=== PATIENT | female | born 1930 | race Caucasian/White ===

== ENCOUNTER 2017-11-23 08:18 | Inpatient (IN) ==
[2017-11-23] MEDS ORDERED: Ondansetron 4 MG/2 ML VIAL IVP ONE (08:49)
[2017-11-23] MEDS ORDERED: 0.9 % Sodium Chloride 500 ML IVC ONE (08:49)
[2017-11-23 09:02] LABS: Hematocrit 36.7 % (35.3-44.9); Hemoglobin 12.2 g/dL (11.5-15.4); Immature Granulocytes % 0.3 % (0-4); Immature Platelets 2.3 % (1.1-6.1); Lymphocytes % 10.9 %; Mean Corpuscular HGB Conc 33.2 g/dL (31.6-35.5); Mean Corpuscular Hemoglobin 30.6 pg (28.0-33.3); Platelet Count 361 K/mcL (140-400); Red Blood Count 3.99 M/mcL (3.82-4.97); Segmented Neutrophils % 82.7 %
[2017-11-23 09:03] LABS: Basophils % 0.2 %; Eosinophils % 0.1 %; Lymphocytes # 1.2 K/mcL (0.6-4.6); Monocytes # 0.6 K/mcL (0.0-1.3); Monocytes % 5.8 %; Neutrophils # 9.1 K/mcL (1.6-8.9)
[2017-11-23 09:15] LABS: Albumin 4.5 g/dL (3.5-5.7); Albumin/Globulin Ratio 1.4 (1.1-2.2); Bilirubin,Total 0.8 mg/dL (0.3-1.0); Calcium 10.3 mg/dL (8.6-10.3); Globulin 3.2 g/dL (2.4-3.5); Potassium 4.5 mEq/L (3.5-5.1); Total Protein 7.7 g/dL (6.4-8.9)
--- NOTE | 2017-11-23 09:20 | Emergency Department Note ---
Disposition Clinical Impression: Generalized weakness UTI (urinary tract infection) Qualifiers: Urinary tract infection type: site unspecified Hematuria presence: with hematuria Qualified Code(s): N39.0 - Urinary tract infection, site not specified Disposition: Admitted As Inpatient Condition: Fair General Adult HPI - General Chief complaint: ED General Medical Stated complaint: Multiple complaints Time Seen by Provider: 11/23/17 08:30 Source: patient Mode of arrival: private vehicle Limitations: no limitations Nursing Notes Reviewed: Yes Vital Signs Reviewed: Yes - History of Present Illness HPI Narrative: 87-year-old female history of hypertension, hyperlipidemia, diabetes, status post CABG who presents to the ER with multiple complaints. Patient reports symptoms for the last roughly 2 weeks in duration. States that she has been seen by her primary care provider and completed a course of antibiotics for UTI. She also reports she has had aches in her back as well as hips and knees. States that at times she feels like she has hot places on her skin. Family states that she has had worsening weakness requiring more help at home with ambulation. They deny any fevers. No dysuria or hematuria. States she has had abdominal pain as well as nausea and vomiting for the last few days and has not wanted to eat. Also reports that she has been more short of breath with ambulation at home. Pt Subjective Complaint: Weakness, cough, abdominal pain, vomiting, generalized aches Onset (ago): week(s) Location: abdomen Radiation: non-radiation Pain Scale: 0 Consistency: intermittent Improves with: nothing Worsens with: nothing Associated symptoms: Reports: cough, headaches, nausea/vomiting, shortness of breath. Denies: chest pain, fever/chills Treatments Prior to Arrival: none - Related Data Home Medications Medication Instructions Recorded Confirmed Amitriptyline [Elavil] 10 mg PO HS 09/02/15 11/23/17 Amlodipine [Amlodipine Besylate] 10 mg PO DAILY 09/02/15 11/23/17 Metformin [Glucophage] 1,000 mg PO BID 09/02/15 11/23/17 Atorvastatin Calcium [Lipitor] 20 mg PO HS 04/28/16 11/23/17 Cholecalciferol (Vitamin D3) 1,000 unit PO DAILY 04/28/16 11/23/17 [Vitamin D3] FLUoxetine HCl [Prozac] 20 mg PO DAILY 04/28/16 11/23/17 Fluticasone Propionate Nasal 50 mcg NS BID 06/15/16 11/23/17 [Flonase] Nitroglycerin [Nitrostat] 0.4 mg SL AD PRN 06/15/16 11/23/17 Allopurinol [Zyloprim] 300 mg PO DAILY 11/23/17 11/23/17 Fluticasone/Vilanterol [Breo 1 puff IH DAILY 11/23/17 11/23/17 Ellipta 100-25 Mcg INH] Furosemide [Lasix] 20 mg PO DAILY 11/23/17 11/23/17 Omeprazole [PriLOSEC] 20 mg PO DAILY 11/23/17 11/23/17 Oxybutynin Chloride [Ditropan Xl] 10 mg PO DAILY 11/23/17 11/23/17 Previous Rx's Medication Instructions Recorded Docusate [Colace] 100 mg PO BID #60 capsule 04/30/16 Ferrous Sulfate 325 mg PO TIDWM #90 tablet 06/17/16 Folic Acid 5 mg PO DAILY #30 tablet 06/17/16 LORazepam [Ativan] 1 mg PO HS #30 tablet 06/17/16 Magnesium Oxide [Mag-Ox] 400 mg PO DAILY #14 tablet 06/17/16 Allergies Allergy/AdvReac Type Severity Reaction Status Date / Time No Known Allergies Allergy Verified 01/03/17 07:17 All systems ED: reviewed and negative except as stated. Constitutional: Reports: weakness. Denies: fever Cardiovascular: Denies: chest pain Respiratory: Reports: cough, dyspnea Gastrointestinal: Reports: abdominal pain, nausea, vomiting. Denies: diarrhea Genitourinary: Denies: dysuria, hematuria Past Medical History - Past Medical History Attestation: Yes The following information was validated with the patient. 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 - Social History Smoking Status: Former smoker Smokeless Tobacco Status: No Alcohol use: Reports: none Drug use: Reports: none Physical Exam - General Limitations: no limitations General appearance: alert, in no apparent distress - Head Head exam: atraumatic, normocephalic - Eye Eye exam: Present: normal appearance - ENT ENT exam: normal exam - Neck Neck exam: Present: normal inspection, full ROM - Chest Chest inspection: Present: normal inspection, symmetric chest wall rise - Respiratory Respiratory exam: Present: normal lung sounds bilaterally - Cardiovascular Cardiovascular exam: Present: regular rate, normal rhythm, normal heart sounds, systolic murmur - Abdominal Exam Abdominal exam: Present: soft, tenderness (Moderate right upper and left upper quadrant tenderness.). Absent: distention, guarding, rigidity - Extremities Exam Extremities exam: Present: normal inspection, full ROM - Expanded Upper Extremity Exam Shoulder exam: Present: normal inspection, full ROM Arm exam: Present: normal inspection, full ROM Elbow exam: Present: normal inspection, full ROM Forearm/Wrist exam: Present: normal inspection, full ROM Hand exam: Present: normal inspection, full ROM - Expanded Lower Extremity Exam Hip/Pelvis exam: Present: normal inspection, full ROM Upper leg exam: Present: normal inspection, full ROM Knee exam: Present: normal inspection, full ROM Lower leg exam: Present: normal inspection, full ROM Ankle exam: Present: normal inspection, full ROM Foot/toe exam: Present: normal inspection, full ROM Neurovascular/Tendon exam: Absent: motor deficit, sensory deficit - Neurological Exam Neurological exam: Present: alert, other (GCS 15, nonfocal, moves all extremity equally.). Absent: motor sensory deficit - Psychiatric Psychiatric exam: Present: normal affect - Skin Skin exam: Present: warm, dry, intact Course Course Narrative: Patient seen and examined. Vital signs reviewed. We will obtain an EKG as well as chest x-ray, labs including troponin, TSH, urinalysis and influenza swab. Patient given 500 mL bolus and Zofran here. Vital Signs Temperature 97.7 F 11/23/17 08:25 Pulse Rate 99 11/23/17 08:25 Respiratory Rate 18 11/23/17 08:25 Blood Pressure 152/87 11/23/17 08:25 O2 Sat by Pulse Oximetry 95 11/23/17 08:25 Temperature 97.9 F 11/24/17 04:54 Pulse Rate 84 11/24/17 04:54 Respiratory Rate 17 11/24/17 04:54 Blood Pressure 167/78 11/24/17 04:54 O2 Sat by Pulse Oximetry 93 11/24/17 04:54 Oxygen Delivery Oxygen Delivery Room Air Medical Decision Making - [facility] Narrative Medical decision making narrative: 87-year-old female presents to the ER due to multiple complaints. Her symptoms have been going off-and-on for the last 2 weeks. She reports she is having hot spots on her skin. Also states her hands turned purple today. She also complains of generalized weakness and difficulty with ambulation. She then went on to say that she had abdominal pain and has had nausea and vomiting for the last few days and has been drinking insurer at home. She is well-appearing here with stable vitals. EKG initially showed depression in anterior leads that was repeated which appear to be normal at that time. Chest x-ray without acute process. CT scan of the abdomen and pelvis shows no acute findings. Labs and urinalysis reviewed with the marginal UTI. Patient given Rocephin 4 UTI and admitted to the hospitalist service. - Lab Data Lab results reviewed: Yes I reviewed the patient's lab results. Result diagrams: 11/23/17 08:55 11/23/17 08:55 Lab Results 11/23/17 11/23/17 11/23/17 Range/Units 08:55 08:55 08:55 WBC 11.0 (4.3-11.1) K/mcL RBC 3.99 (3.82-4.97) M/mcL Hgb 12.2 (11.5-15.4) g/dL Hct 36.7 (35.3-44.9) % MCV 92.0 (83.0-100.0) fL MCH 30.6 (28.0-33.3) pg MCHC 33.2 (31.6-35.5) g/dL RDW 12.0 (11.5-14.5) % Plt Count 361 (140-400) K/mcL MPV 9.0 L (9.4-12.4) fL Immature Gran % 0.3 (0-4) % Seg Neutrophils % 82.7 % Lymphocytes % 10.9 % Monocytes % 5.8 % Eosinophils % 0.1 % Basophils % 0.2 % Neutrophils # 9.1 H (1.6-8.9) K/mcL Lymphocytes # 1.2 (0.6-4.6) K/mcL Monocytes # 0.6 (0.0-1.3) K/mcL Eosinophils # 0.0 (0.0-0.6) K/mcL Basophils # 0.0 (0.0-0.2) K/mcL Immature Plt Fraction 2.3 (1.1-6.1) % Sodium 132 L (136-145) mEq/L Potassium 4.5 (3.5-5.1) mEq/L Chloride 96 L (98-107) mEq/L Carbon Dioxide 25 (23-29) mEq/L BUN 30 H (8-23) mg/dL Creatinine 1.59 H (0.60-1.20) mg/dL Est GFR ( Amer) 37 L (> 60) Est GFR (Non-Af Amer) 31 L (> 60) BUN/Creatinine Ratio 19 (6-26) Glucose 210 H (70-105) mg/dL Est Mean Plasma Glucose mg/dl Hemoglobin A1c ( - 5.6) % Calculated Osmolality 286 (280-300) Calcium 10.3 (8.6-10.3) mg/dL Total Bilirubin 0.8 (0.3-1.0) mg/dL AST 10 L (13-39) Units/L ALT 9 (7-52) Units/L Alkaline Phosphatase 71 (34-104) Units/L Troponin I < 0.03 (< 0.04) ng/mL Serum Total Protein 7.7 (6.4-8.9) g/dL Albumin 4.5 (3.5-5.7) g/dL Globulin 3.2 (2.4-3.5) g/dL Albumin/Globulin Ratio 1.4 (1.1-2.2) Lipase 4 L (11-82) Units/L TSH 1.767 (0.340-5.600) mcIU/mL Urine Color (Yellow) Urine Clarity (Clear) Urine pH (5.0-8.0) pH Units Ur Specific [place] (1.010-1.025) Urine Protein (Neg-Trace) mg/dL Urine Glucose (UA) (Normal) mg/dL Urine Ketones (Negative) mg/dL Urine Blood (Negative) Urine Nitrite (Negative) Urine Bilirubin (Negative) Urine Urobilinogen (Normal) mg/dL Ur Leukocyte Esterase (Negative) Urine Microscopic RBC (0-3) per hpf Urine Microscopic WBC (0-3) per hpf Ur Squamous Epith Cells (None-Few) per lpf Urine Bacteria (None-Few) per hpf Hyaline Casts (None-Few) per lpf Ur Culture Indicated? (NO) 11/23/17 11/23/17 Range/Units 08:55 09:50 WBC (4.3-11.1) K/mcL RBC (3.82-4.97) M/mcL Hgb (11.5-15.4) g/dL Hct (35.3-44.9) % MCV (83.0-100.0) fL MCH (28.0-33.3) pg MCHC (31.6-35.5) g/dL RDW (11.5-14.5) % Plt Count (140-400) K/mcL MPV (9.4-12.4) fL Immature Gran % (0-4) % Seg Neutrophils % % Lymphocytes % % Monocytes % % Eosinophils % % Basophils % % Neutrophils # (1.6-8.9) K/mcL Lymphocytes # (0.6-4.6) K/mcL Monocytes # (0.0-1.3) K/mcL Eosinophils # (0.0-0.6) K/mcL Basophils # (0.0-0.2) K/mcL Immature Plt Fraction (1.1-6.1) % Sodium (136-145) mEq/L Potassium (3.5-5.1) mEq/L Chloride (98-107) mEq/L Carbon Dioxide (23-29) mEq/L BUN (8-23) mg/dL Creatinine (0.60-1.20) mg/dL Est GFR ( Amer) (> 60) Est GFR (Non-Af Amer) (> 60) BUN/Creatinine Ratio (6-26) Glucose (70-105) mg/dL Est Mean Plasma Glucose 148 mg/dl Hemoglobin A1c 6.8 H ( - 5.6) % Calculated Osmolality (280-300) Calcium (8.6-10.3) mg/dL Total Bilirubin (0.3-1.0) mg/dL AST (13-39) Units/L ALT (7-52) Units/L Alkaline Phosphatase (34-104) Units/L Troponin I (< 0.04) ng/mL Serum Total Protein (6.4-8.9) g/dL Albumin (3.5-5.7) g/dL Globulin (2.4-3.5) g/dL Albumin/Globulin Ratio (1.1-2.2) Lipase (11-82) Units/L TSH (0.340-5.600) mcIU/mL Urine Color Yellow (Yellow) Urine Clarity Cloudy A (Clear) Urine pH 7.0 (5.0-8.0) pH Units Ur Specific [place] 1.026 H (1.010-1.025) Urine Protein 100 H (Neg-Trace) mg/dL Urine Glucose (UA) Normal (Normal) mg/dL Urine Ketones Trace H (Negative) mg/dL Urine Blood Large H (Negative) Urine Nitrite Negative (Negative) Urine Bilirubin Negative (Negative) Urine Urobilinogen Normal (Normal) mg/dL Ur Leukocyte Esterase Moderate H (Negative) Urine Microscopic RBC TNTC H (0-3) per hpf Urine Microscopic WBC 50-100 H (0-3) per hpf Ur Squamous Epith Cells Many H (None-Few) per lpf Urine Bacteria Few (None-Few) per hpf Hyaline Casts None Seen (None-Few) per lpf Ur Culture Indicated? NO (NO) - Radiology Data Radiology results reviewed: Yes I reviewed the patient's radiology results. Chest X-Ray 11/23/17 08:48 IMPRESSION: No acute cardiopulmonary disease D/ / J Carlos Lopez MD / J Carlos Lopez MD Interpreting Provider: J Carlos Lopez MD Abdomen/Pelvis CT 11/23/17 08:49 IMPRESSION: 1. Somewhat hydropic appearance of the gallbladder with gallstones. Could consider right upper quadrant ultrasound for further evaluation, as indicated. 2. Diverticulosis CT evidence of diverticulitis. 3. Irregular thickening of the urinary bladder wall is nonspecific. Direct visualization with cystoscopy is recommended. 4. Other stable findings, as above. D/ / J Carlos Medellin / J Carlos Medellin Interpreting Provider: J Carlos Medellin - EKG Data EKG #1 EKG attestation: Yes I reviewed and interpreted this EKG. EKG results narrative: EKG demonstrates sinus rhythm with first-degree AV block with a rate of 91 bpm. Left axis deviation. Prolonged VT interval of 242. Other intervals normal. Normal R-wave progression. No gross ST elevations. There is [address] depression in leads V3 with nonspecific ST-T wave changes in lead V6. These are new from prior EKG dated 07/20/16. EKG demonstrates sinus rhythm with first-degree AV block with rate of 90 bpm. Left axis deviation. Normal intervals with the exception of VT interval of 222. Normal R-wave progression. No gross ST elevations or depressions. No acute ischemic findings. Attestation Statement - Attestation Attestation: I examined this patient and my medical decision-making was reviewed with the Resident Physician, Dr. Linda. I agree with the documented findings, disposition and treatment plan as described except to the extent set forth below. Pt is an 87 yo wf, with hx of HTN, hyperlipidemai and CAD, who presents to the ER with 2-wk hx of grad worsening gen weakness, and dyspnea on exertion. Pt brought by her daughter and grand daughter with concerns for her inability to ambulate with her cane as she typically does, due to worsening gen weakness and dec PO intake. Pt with c/o gen myalgias, gen weakness, and over past 2-3 days c/ o nausea and one isolated episode of nonbloody, nonbilious vomiting. Pt denies any f/C, no URI sxs/cough, no bowel changes. Pt denies any urinary sxs or flank pain. VSS on arrival and pt in NAD. I agree with PE findings as documented, VSS. Pt with initial EKG changes, NSR with ST depression in V3 which is new compared to prior EKG. Pt denies any CP/press, heaviness and no current SOB. EKG repeated , showing resolution of initial changes in V3. Labs show questionable UTI vs clean catch contamination. Will send for cx and cover pt with rocephin. Remaining labs wnl. CT abd/pelvis wnl, gallstones. Serial abd exams show no TTP, no peritoneal signs following IVF administration, and pt reports that she is feeling better after IVF. Initial trop wnl. Will admit for ongoing cardica eval, IV antibx and IVF for mild dehydration, as pt unable to care for herself at home due to dec appetite and gen weakness. D/W hospitalist who accepted pt for admission.
[2017-11-23 10:03] LABS: Bilirubin,Urine Negative (Negative); Blood,Urine Large (Negative); Clarity,Urine Cloudy (Clear); Color,Urine Yellow (Yellow); Glucose,Urine (UA) Normal (Normal); Ketones,Urine Trace mg/dL (Negative); Leukocyte Esterase,Urine Moderate (Negative); Nitrite,Urine Negative (Negative); Protein,Urine 100 mg/dL (Neg-Trace); Specific Gravity,Urine 1.026 (1.010-1.025); Urobilinogen,Urine Normal (Normal)
[2017-11-23 10:05] LABS: Hyaline Casts,Urine None Seen per lpf (None-Few); RBC,Urine TNTC per hpf (0-3); Squamous Epithelial Cell,Urine Many per lpf (None-Few); WBC,Urine 50-100 per hpf (0-3)
[2017-11-23 10:17] LABS: Bacteria,Urine Few per hpf (None-Few)
[2017-11-23 10:18] LABS: Thyroid Stimulating Hormone 1.767 mcIU/mL (0.340-5.600)
[2017-11-23] MEDS ORDERED: cefTRIAXone 1,000 MG in Water for inj. (sterile) 20 ML 10 ML IVP ONE (10:50)
--- NOTE | 2017-11-23 12:31 | Internal Med History&Physical ---
<Quentin Anne - Last Filed: 11/23/17 12:48> Date of Encounter: 11/23/17 Time of Encounter: 12:30 Assessment and Plan (1) Recurrent UTI Status: Acute -Received 1 course of treatment of antibiotics with unknown name. - UA positive for UTI at ED. - We will continue Rocephin and repeat UA in 3 days. (2) Dehydration Status: Acute -We will gently rehydrate with IV normal saline. - Encouraged patient for by mouth intake. (3) Numbness Status: Chronic - History of diabetes, will check A1c to rule out diabetic neuropathy. - We will also check vitamin B12, folate, calcium, magnesium and given the history vitamin deficiency. (4) Acute kidney injury Status: Acute - Baseline GFR above 60, current GFR less than 40. - Likely due to dehydration, were rehydrated and repeat RFP. - If no improvement, will do renal ultrasound and the urine electrolytes study. (5) Diabetes Status: Chronic - Hold metformin for inpatient, only insulin sliding scale. - Pending hemoglobin A1c. 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 (7) Vitamin D deficiency Status: Chronic - Vitamin D Supplement at Home. Vitamin D level pending. Internal Medicine - H&P: HPI Admitted From: Emergency Dept Plans for Post Hospital Care: Home History of present illness: Ms. Burch is a 87-year-old female history of hypertension, hyperlipidemia, diabetes, status post CABG who presents to the ER with multiple complaints. Patient reports symptoms for the last roughly 2 weeks in duration. States that she has been seen by her primary care provider and completed a course of antibiotics for UTI. She also reports she has had aches in her back as well as hips and knees. States that at times she feels like she has hot places on her skin. Family states that she has had worsening weakness requiring more help at home with ambulation. They deny any fevers. No dysuria or hematuria. States she has had abdominal pain as well as nausea and vomiting for the last few days and has not wanted to eat. Also reports that she has been more short of breath with ambulation at home. She also complains of numbness and tingling on the extremities. Family report that she had low magnesium in the past and received magnesium supplement. She she denies headache, seizure. At the ED, she was found to have UTI. Labs are remarkable for acute kidney injury and a urinary infection. She received 1 dose of Rocephin and will be admitted to the inpatient service. Past Med Surg Social Fam HX - Past Medical History Medical history: coronary artery disease, diabetes, GERD, hyperlipidemia, hypertension, osteoporosis, renal disease, TIA, valvular heart disease Psychiatric history: depression - Past Surgical History Surgical History: hysterectomy, orthopedic, other, other - Social History Smoking Status: Former smoker Smokeless Tobacco Status: No Alcohol use: none Drug use: none - Family History Mother Living Status: Hx Family GI Disorders: Yes Internal Medicine - H&P: Meds Amitriptyline [Elavil] 10 mg PO HS 09/02/15 [History] Amlodipine [Amlodipine Besylate] 10 mg PO DAILY 09/02/15 [History] Metformin [Glucophage] 1,000 mg PO BID 09/02/15 [History] Atorvastatin Calcium [Lipitor] 20 mg PO HS 04/28/16 [History] Cholecalciferol (Vitamin D3) [Vitamin D3] 1,000 unit PO DAILY 04/28/16 [History] FLUoxetine HCl [Prozac] 20 mg PO DAILY 04/28/16 [History] Docusate [Colace] 100 mg PO BID #60 capsule 04/30/16 [Rx] Fluticasone Propionate Nasal [Flonase] 50 mcg NS BID 06/15/16 [History] Nitroglycerin [Nitrostat] 0.4 mg SL AD PRN 06/15/16 [History] Ferrous Sulfate 325 mg PO TIDWM #90 tablet 06/17/16 [Rx] Folic Acid 5 mg PO DAILY #30 tablet 06/17/16 [Rx] LORazepam [Ativan] 1 mg PO HS #30 tablet 06/17/16 [Rx] Magnesium Oxide [Mag-Ox] 400 mg PO DAILY #14 tablet 06/17/16 [Rx] Allopurinol [Zyloprim] 300 mg PO DAILY 11/23/17 [History] Fluticasone/Vilanterol [Breo Ellipta 100-25 Mcg INH] 1 puff IH DAILY 11/23/17 [ History] Furosemide [Lasix] 20 mg PO DAILY 11/23/17 [History] Omeprazole [PriLOSEC] 20 mg PO DAILY 11/23/17 [History] Oxybutynin Chloride [Ditropan Xl] 10 mg PO DAILY 11/23/17 [History] Cephalexin [Keflex] 500 mg PO Q12H 7 Days #14 capsule 11/27/17 [Rx] Oxycodone HCl/Acetaminophen [Percocet 5-325 mg Tablet] 1 each PO Q8H #15 tablet 11/27/17 [Rx] 3 Allergy/AdvReac Type Severity Reaction Status Date / Time No Known Allergies Allergy Verified 01/03/17 07:17 All Systems PM: A 10-system review of systems was performed and is negative for pertinent findings except as documented above in the HPI. Review of systems: REVIEW OF SYSTEMS: CONSTITUTIONAL: No weight loss, fever, chills. HEENT: Eyes: No visual loss, blurred vision, double vision or yellow sclerae. Ears, Nose, Throat: No hearing loss, sneezing, congestion, runny nose or sore throat. SKIN: No rash or itching. CARDIOVASCULAR: No chest pain, chest pressure or chest discomfort. No palpitations or edema. RESPIRATORY: No cough or sputum. GASTROINTESTINAL: see HPI. GENITOURINARY: No dysuria, urgency, or frequency. NEUROLOGICAL: No headache, dizziness, syncope, paralysis, ataxia. No change in bowel or bladder control. MUSCULOSKELETAL: No muscle, back pain, joint pain or stiffness. HEMATOLOGIC: No anemia, bleeding or bruising. LYMPHATICS: No enlarged nodes. No history of splenectomy. PSYCHIATRIC: No history of depression or anxiety. ENDOCRINOLOGIC: No reports of sweating, cold or heat intolerance. No polyuria or polydipsia. - Constitutional Vitals: Temp Pulse Resp BP Pulse Ox 97.7 F 91 18 150/112 95 11/23/17 08:25 11/23/17 11:51 11/23/17 11:51 11/23/17 11:51 11/23/17 11:51 Exam: PHYSICAL EXAMINATION: GENERAL APPEARANCE: The patient is alert, oriented and in no acute distress. HEENT: Head is normocephalic. The sinuses are nontender. Pupils are equal and reactive. The nares are patent. Oropharynx clear without lesions. NECK: Supple without lymphadenopathy. HEART: Regular rate and rhythm. systolic murmur 3/5 noted at the right border of sternum. LUNGS: No crackles or wheezes are heard. ABDOMEN: Soft, nontender, nondistended with good bowel sounds heard. Inguinal area is normal. EXTREMITIES: Without cyanosis, clubbing or edema. NEUROLOGICAL: Gross nonfocal. SKIN: Warm and dry without any rash. Internal Med - H&P Results - Labs CBC & Chem 7: 11/23/17 08:55 11/23/17 08:55 Labs: Short CBC 11/23/17 Range/Units 08:55 WBC 11.0 (4.3-11.1) K/mcL Hgb 12.2 (11.5-15.4) g/dL Hct 36.7 (35.3-44.9) % Plt Count 361 (140-400) K/mcL Neutrophils # 9.1 H (1.6-8.9) K/mcL BMP 11/23/17 08:55 Sodium 132 L Potassium 4.5 Chloride 96 L Carbon Dioxide 25 BUN 30 H Creatinine 1.59 H Glucose 210 H Calcium 10.3 Cardiac Enzymes 11/23/17 Range/Units 08:55 Troponin I < 0.03 (< 0.04) ng/mL Liver Function 11/23/17 Range/Units 08:55 Total Bilirubin 0.8 (0.3-1.0) mg/dL AST 10 L (13-39) Units/L ALT 9 (7-52) Units/L Alkaline Phosphatase 71 (34-104) Units/L Albumin 4.5 (3.5-5.7) g/dL Urine 11/23/17 Range/Units 09:50 Urine Color Yellow (Yellow) Urine Clarity Cloudy A (Clear) Urine pH 7.0 (5.0-8.0) pH Units Ur Specific [place] 1.026 H (1.010-1.025) Urine Protein 100 H (Neg-Trace) mg/dL Urine Glucose (UA) Normal (Normal) mg/dL - Impressions ITS Impressions Chest X-Ray 11/23/17 08:48 IMPRESSION: No acute cardiopulmonary disease D/ / J Carlos Lopez MD / J Carlos Lopez MD Interpreting Provider: J Carlos Lopez MD Abdomen/Pelvis CT 11/23/17 08:49 IMPRESSION: 1. Somewhat hydropic appearance of the gallbladder with gallstones. Could consider right upper quadrant ultrasound for further evaluation, as indicated. 2. Diverticulosis CT evidence of diverticulitis. 3. Irregular thickening of the urinary bladder wall is nonspecific. Direct visualization with cystoscopy is recommended. 4. Other stable findings, as above. D/ / J Carlos Medellin / J Carlos Medellin Interpreting Provider: J Carlos Medellin <CarolineLeila Salina - Last Filed: 12/23/17 08:56> Date of Encounter: 12/23/17 Internal Medicine - H&P: HPI History of present illness: Ms. Burch is a 87 year old female All Systems PM: A 10-system review of systems was performed and is negative for pertinent findings except as documented above in the HPI. - Constitutional Vitals: Temp Pulse Resp BP Pulse Ox 98.7 F 90 15 152/76 95 11/26/17 23:38 11/26/17 23:38 11/26/17 23:38 11/26/17 23:38 11/26/17 23:38 Internal Med - H&P Results - Labs CBC & Chem 7: 11/26/17 04:24 11/26/17 04:24 - Attending Attestation I personally and independently interviewed and examined the patient with PARKING ENFORCEMENT TECHNICIAN, and I reviewed the patient's medical record with her. I am in agreement with the assessment and proposed treatment plan. I discussed my findings and recommendation with the patient and answer all questions. The patient's medical records were edited to accurately reflect this encounter.
[2017-11-23] MEDS ORDERED: Acetaminophen 325 MG TABLET PO PRN (12:35)
[2017-11-23] MEDS ORDERED: Ondansetron 4 MG/2 ML VIAL IVP PRN (12:35)
[2017-11-23] MEDS ORDERED: Naloxone 0.4 MG/ML INJ IVP PRN (12:35)
[2017-11-23] MEDS ORDERED: D5% in Water 1,000 ML IVC PRN (12:47)
[2017-11-23] MEDS ORDERED: *HR* Dextrose 50 % in Water (Syg) 50 ML SYRINGE IVP PRN (12:47)
[2017-11-23] MEDS ORDERED: Dextrose Gel 15 GM/37.5 ML TUBE PO PRN ×2 (12:47)
[2017-11-23] MEDS: Insulin LISPRO 300 UNITS/3 ML VIAL SQ SCH ×4 (13:48→20:55)
[2017-11-23] MEDS: 0.9 % Sodium Chloride 1,000 ML IVC SCH (14:00)
[2017-11-23 14:07] LABS: Hemoglobin A1C 6.8 %
[2017-11-23] MEDS: amLODIPine 5 MG TABLET PO SCH (14:18)
[2017-11-23] MEDS: Folic Acid 1 MG TABLET PO SCH (14:18)
[2017-11-23] MEDS: Fluticasone Propionate Nasal 50 MCG/SPRAY BOTTLE NS SCH ×2 (14:18→20:55)
[2017-11-23] MEDS: Cholecalciferol (D-3) 1,000 UNIT TABLET PO SCH (14:18)
[2017-11-23] MEDS: Magnesium Oxide 400 MG TABLET PO SCH (14:18)
[2017-11-23] MEDS: FLUoxetine 20 MG CAPSULE PO SCH (14:18)
[2017-11-23] MEDS ORDERED: traMADol 50 MG TABLET PO PRN (14:30)
[2017-11-23] MEDS: *HR* Heparin 5,000 UNIT/ML VIAL SQ SCH (17:44)
[2017-11-23] MEDS: *HR* OxyCODONE/APAP 5/325 TABLET PO PRN (18:41)
[2017-11-23] MEDS: *HR* LORazepam 1 MG TABLET PO SCH (20:40)
[2017-11-24] MEDS: *HR* Heparin 5,000 UNIT/ML VIAL SQ SCH ×2 (05:35→17:36)
[2017-11-24 06:07] LABS: Hematocrit 33.8 % (35.3-44.9); Hemoglobin 11.1 g/dL (11.5-15.4); Mean Corpuscular HGB Conc 32.8 g/dL (31.6-35.5); Mean Corpuscular Hemoglobin 30.7 pg (28.0-33.3); Mean Corpuscular Volume 93.6 fL (83.0-100.0); Mean Platelet Volume 9.7 fL (9.4-12.4); Platelet Count 298 K/mcL (140-400); Red Blood Count 3.61 M/mcL (3.82-4.97); Red Cell Distribution Width 12.2 % (11.5-14.5)
[2017-11-24] MEDS: 0.9 % Sodium Chloride 1,000 ML IVC SCH (06:12)
[2017-11-24 06:27] LABS: Calcium 9.4 mg/dL (8.6-10.3); Magnesium 2.2 mg/dL (1.6-2.6); Potassium 4.1 mEq/L (3.5-5.1)
[2017-11-24] MEDS: Magnesium Oxide 400 MG TABLET PO SCH (08:06)
[2017-11-24] MEDS: Cholecalciferol (D-3) 1,000 UNIT TABLET PO SCH (08:07)
[2017-11-24] MEDS: amLODIPine 5 MG TABLET PO SCH (08:07)
[2017-11-24] MEDS: Folic Acid 1 MG TABLET PO SCH (08:07)
[2017-11-24] MEDS: FLUoxetine 20 MG CAPSULE PO SCH (08:07)
[2017-11-24] MEDS: Insulin LISPRO 300 UNITS/3 ML VIAL SQ SCH ×4 (08:10→22:02)
[2017-11-24] MEDS: Fluticasone Propionate Nasal 50 MCG/SPRAY BOTTLE NS SCH ×2 (08:10→21:34)
--- NOTE | 2017-11-24 09:56 | Internal Med Progress Note ---
Date of Encounter: 11/24/17 Time of Encounter: 09:54 - Assessment and plan (1) UTI (urinary tract infection) Current Visit: No Status: Acute Qualifiers: Urinary tract infection type: site unspecified Hematuria presence: with hematuria Qualified Code(s): N39.0 - Urinary tract infection, site not specified; R31.9 - Hematuria, unspecified (2) Renal failure (ARF), acute on chronic Current Visit: No Status: Acute Qualifiers: Acute renal failure type: unspecified Chronic kidney disease stage: stage 3 (moderate) Qualified Code(s): N17.9 - Acute kidney failure, unspecified; N18.3 - Chronic kidney disease, stage 3 (moderate); N18.3 - Chronic kidney disease, stage 3 (moderate) (3) Recurrent UTI Current Visit: No Status: Acute (4) Diabetes Current Visit: No Status: Chronic Qualifiers: Diabetes mellitus type: type 2 Diabetes mellitus complication status: without complication Diabetes mellitus meterman insulin use: without meterman use Qualified Code(s): E11.9 - Type 2 diabetes mellitus without complications (5) HTN (hypertension) Current Visit: No Status: Chronic Assessment and plan: PT REPORTS SOME IMPROVEMENT, CONTINUE IV ROCEPHIN I DID NOT SEE PENDIND URINE CULTURES, WILL ORDER ONE MONITOR INS AND OUTS, RENAL FUNCTION IMPROVING, CONTINUE GENTLE IV HYDRATION CONT ACCUCHECK WITH ISS MONITOR VITALS. Qualifiers: Hypertension type: essential hypertension Qualified Code(s): I10 - Essential (primary) hypertension - Time Spent With Patient 25 - 35 minutes - Subjective Interval history: SAYS MAKING URINE, NO FEVER OR CHILLS BUT STILL WEAK. - Constitutional Vitals: Temp Pulse Resp BP Pulse Ox 97.9 F 80 20 108/64 93 11/24/17 07:58 11/24/17 07:58 11/24/17 07:58 11/24/17 09:13 11/24/17 07:58 General appearance: Present: A&O X 3 - Head Head exam: Present: atraumatic, normocephalic - Eye Eye exam: Present: PERRL, conjuntiva pink, sclera anicteric Pupils: Present: PERRL - Neck Neck exam general surgery: Present: supple, trachea midline. Absent: lymphadenopathy - Respiratory Respiratory exam: Present: CTAB. Absent: accessory muscle use, rales, rhonchi, wheezes - Cardiovascular Cardiovascular exam: Present: RRR, +S1, +S2. Absent: diastolic murmur, gallop, rubs, systolic murmur - GI/Abdominal GI/Abdominal exam: Present: normal bowel sounds, soft, no peritoneal signs. Absent: distended, tenderness - Extremities Exam Extremities exam: Present: warm, radial pulses palpable and symmetrical. Absent : calf tenderness, cyanotic, pedal edema - Neurological Exam Neurological exam: Present: CN II-XII intact, oriented X3, no focal deficits. Absent: pronater drift, facial droop, speech deficit - Skin Skin exam: Present: dry, intact Internal Medicine: Result - Labs CBC & Chem 7: 11/24/17 05:04 11/24/17 05:04 Labs: Short CBC 11/24/17 Range/Units 05:04 WBC 7.8 (4.3-11.1) K/mcL Hgb 11.1 L (11.5-15.4) g/dL Hct 33.8 L (35.3-44.9) % Plt Count 298 (140-400) K/mcL [facility] 11/24/17 05:04 Sodium 133 L Potassium 4.1 Chloride 102 Carbon Dioxide 22 L BUN 33 H Creatinine 1.38 H Glucose 180 H Calcium 9.4 Consult Discharge Plan - Plan Referrals: Sapna Ruiz MD [Primary Care Provider] -
[2017-11-24] MEDS: (Fluticasone/Vilanterol [Breo Ellipta 100-25 Mcg Inh]) IH SCH (12:03)
[2017-11-24] MEDS: cefTRIAXone 1,000 MG in Water for inj. (sterile) 20 ML 10 ML IVP SCH (12:05)
[2017-11-24] MEDS: *HR* OxyCODONE/APAP 5/325 TABLET PO PRN ×2 (14:01→20:22)
--- NOTE | 2017-11-24 19:43 | Electrocardiograph Report ---
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
--- NOTE | 2017-11-24 19:46 | Electrocardiograph Report ---
[address] [address] Test Date: 2017-11-23 Pat Name: Neisha Burch Department: 104 Room: 3A42 Gender: F Parent Partner: : 1930 Requested By: Bigg Linda Order Number: [id number] Reading MD: Jase Liriano MD Measurements Intervals [place] Rate: 90 P: -1 [place]: 222 QRS: -30 QRSD: 75 T: 40 QT: 366 QTc: 414 Interpretive Statements SINUS RHYTHM WITH FIRST DEGREE AV BLOCK BORDERLINE LEFT AXIS DEVIATION MODERATE VOLTAGE CRITERIA FOR LVH BASELINE ARTIFACT Electronically Signed On 11-24-2017 19:45:20 EST by Jase Liriano MD
[2017-11-24] MEDS: *HR* LORazepam 1 MG TABLET PO SCH (20:20)
[2017-11-25] MEDS: *HR* Heparin 5,000 UNIT/ML VIAL SQ SCH ×2 (04:57→18:58)
[2017-11-25] MEDS: *HR* OxyCODONE/APAP 5/325 TABLET PO PRN ×3 (05:16→18:57)
[2017-11-25] MEDS: Insulin LISPRO 300 UNITS/3 ML VIAL SQ SCH ×4 (07:39→22:55)
[2017-11-25] MEDS: amLODIPine 5 MG TABLET PO SCH (09:32)
[2017-11-25] MEDS: Folic Acid 1 MG TABLET PO SCH (09:32)
[2017-11-25] MEDS: FLUoxetine 20 MG CAPSULE PO SCH (09:32)
[2017-11-25] MEDS: Magnesium Oxide 400 MG TABLET PO SCH (09:33)
[2017-11-25] MEDS: Cholecalciferol (D-3) 1,000 UNIT TABLET PO SCH (09:33)
[2017-11-25] MEDS: (Fluticasone/Vilanterol [Breo Ellipta 100-25 Mcg Inh]) IH SCH (09:42)
[2017-11-25] MEDS: Fluticasone Propionate Nasal 50 MCG/SPRAY BOTTLE NS SCH ×2 (09:43→20:42)
[2017-11-25] MEDS: cefTRIAXone 1,000 MG in Water for inj. (sterile) 20 ML 10 ML IVP SCH (11:52)
[2017-11-25 14:20] LABS: Potassium 4.4 mEq/L (3.5-5.1)
--- NOTE | 2017-11-25 18:40 | Internal Med Progress Note ---
Date of Encounter: 11/25/17 Time of Encounter: 13:00 - Assessment and plan (1) UTI (urinary tract infection) Current Visit: No Status: Acute Qualifiers: Urinary tract infection type: site unspecified Hematuria presence: with hematuria Qualified Code(s): N39.0 - Urinary tract infection, site not specified; R31.9 - Hematuria, unspecified (2) Renal failure (ARF), acute on chronic Current Visit: No Status: Acute Qualifiers: Acute renal failure type: unspecified Chronic kidney disease stage: stage 3 (moderate) Qualified Code(s): N17.9 - Acute kidney failure, unspecified; N18.3 - Chronic kidney disease, stage 3 (moderate); N18.3 - Chronic kidney disease, stage 3 (moderate) (3) Recurrent UTI Current Visit: No Status: Acute (4) Diabetes Current Visit: No Status: Chronic Qualifiers: Diabetes mellitus type: type 2 Diabetes mellitus complication status: without complication Diabetes mellitus terminal block assembler insulin use: without terminal block assembler use Qualified Code(s): E11.9 - Type 2 diabetes mellitus without complications (5) HTN (hypertension) Current Visit: No Status: Chronic Assessment and plan: PT. REPORTS SOME IMPROVEMENT BUT STILL WEAK AND FEELS CONSTIPATED. URINE CULTURES WERE PENDING WHEN I ROUNDED ON PATIENT. I RECHECKED LATE THIS AFTERNOON WHILE WRITING NOTES AND IT IS RESULTED AND READS NEGATIVE. WILL CONTINUE IV ROCEPHIN AND ANTICIPATE DC ON ORAL ABX IN THE AM. I WILL ORDER LAXATIVES FOR CONSTIPATION. MONITOR INS AND OUTS, RENAL FUNCTION IMPROVING, CONTINUE GENTLE IV HYDRATION CONT ACCUCHECK WITH ISS MONITOR VITALS. Qualifiers: Hypertension type: essential hypertension Qualified Code(s): I10 - Essential (primary) hypertension - Subjective Interval history: SAYS MAKING URINE, NO FEVER OR CHILLS BUT STILL WEAK. - Constitutional Vitals: Temp Pulse Resp BP Pulse Ox 97.5 F L 75 18 126/69 93 11/25/17 15:33 11/25/17 15:33 11/25/17 15:33 11/25/17 15:33 11/25/17 15:33 General appearance: Present: A&O X 3 - Head Head exam: Present: atraumatic, normocephalic - Eye Eye exam: Present: PERRL, conjuntiva pink, sclera anicteric Pupils: Present: PERRL - Neck Neck exam general surgery: Present: supple, trachea midline. Absent: lymphadenopathy - Respiratory Respiratory exam: Present: CTAB. Absent: accessory muscle use, rales, rhonchi, wheezes - Cardiovascular Cardiovascular exam: Present: RRR, +S1, +S2. Absent: diastolic murmur, gallop, rubs, systolic murmur - GI/Abdominal GI/Abdominal exam: Present: normal bowel sounds, soft, no peritoneal signs. Absent: distended, tenderness - Extremities Exam Extremities exam: Present: warm, radial pulses palpable and symmetrical. Absent : calf tenderness, cyanotic, pedal edema - Neurological Exam Neurological exam: Present: CN II-XII intact, oriented X3, no focal deficits. Absent: pronater drift, facial droop, speech deficit - Skin Skin exam: Present: dry, intact Internal Medicine: Result - Labs CBC & Chem 7: 11/24/17 05:04 11/25/17 13:39 Labs: BMP 11/25/17 13:39 Sodium 130 L Potassium 4.4 Chloride 102 Carbon Dioxide 23 BUN 30 H Creatinine 1.36 H Glucose 156 H Calcium 9.0 Consult Discharge Plan - Plan Referrals: Sapna Ruiz MD [Primary Care Provider] - 12/05/17 11:00 am
[2017-11-25] MEDS: 0.9 % Sodium Chloride 1,000 ML IVC SCH (18:58)
[2017-11-25] MEDS: *HR* LORazepam 1 MG TABLET PO SCH (20:43)
[2017-11-26 05:30] LABS: Basophils % 0.3 %; Eosinophils # 0.3 K/mcL (0.0-0.6); Eosinophils % 3.8 %; Hematocrit 33.8 % (35.3-44.9); Hemoglobin 11.2 g/dL (11.5-15.4); Immature Granulocytes % 0.3 % (0-4); Lymphocytes # 1.4 K/mcL (0.6-4.6); Lymphocytes % 20.1 %; Mean Corpuscular HGB Conc 33.1 g/dL (31.6-35.5); Mean Corpuscular Hemoglobin 31.1 pg (28.0-33.3); Mean Corpuscular Volume 93.9 fL (83.0-100.0); Mean Platelet Volume 9.6 fL (9.4-12.4); Monocytes # 0.6 K/mcL (0.0-1.3); Monocytes % 9.5 %; Neutrophils # 4.5 K/mcL (1.6-8.9); Platelet Count 273 K/mcL (140-400)
[2017-11-26 05:44] LABS: Calcium 9.2 mg/dL (8.6-10.3); Potassium 4.1 mEq/L (3.5-5.1)
[2017-11-26] MEDS: *HR* OxyCODONE/APAP 5/325 TABLET PO PRN ×3 (06:41→19:26)
[2017-11-26] MEDS: *HR* Heparin 5,000 UNIT/ML VIAL SQ SCH ×2 (06:42→17:36)
[2017-11-26] MEDS: Insulin LISPRO 300 UNITS/3 ML VIAL SQ SCH ×4 (08:39→22:49)
[2017-11-26] MEDS: Fluticasone Propionate Nasal 50 MCG/SPRAY BOTTLE NS SCH ×2 (08:39→22:50)
[2017-11-26] MEDS: FLUoxetine 20 MG CAPSULE PO SCH (08:40)
[2017-11-26] MEDS: amLODIPine 5 MG TABLET PO SCH (08:40)
[2017-11-26] MEDS: Cholecalciferol (D-3) 1,000 UNIT TABLET PO SCH (08:40)
[2017-11-26] MEDS: Folic Acid 1 MG TABLET PO SCH (08:41)
[2017-11-26] MEDS: Magnesium Oxide 400 MG TABLET PO SCH (08:41)
[2017-11-26] MEDS: 0.9 % Sodium Chloride 1,000 ML IVC SCH (08:49)
[2017-11-26] MEDS ORDERED: Cyanocobalamin (B-12) 1,000 MCG/ML VIAL SQ ONE (08:56)
[2017-11-26] MEDS: (Fluticasone/Vilanterol [Breo Ellipta 100-25 Mcg Inh]) IH SCH (10:31)
[2017-11-26] MEDS: cefTRIAXone 1,000 MG in Water for inj. (sterile) 20 ML 10 ML IVP SCH (12:46)
[2017-11-26] MEDS: *HR* LORazepam 1 MG TABLET PO SCH (20:30)
[2017-11-26 23:40] VITALS: BP 152/76
--- NOTE | 2017-11-26 23:40 | Internal Med Progress Note ---
Date of Encounter: 11/26/17 Time of Encounter: 11:38 - Assessment and plan (1) UTI (urinary tract infection) Current Visit: No Status: Acute Assessment and plan: Continue antibiotics. Kidney function improved with hydration and UTI treatment. Patient feeling weak, would benefit from home with physical therapy at discharge. Check appetite throughout today and tomorrow morning. If good, may DC. Qualifiers: Urinary tract infection type: site unspecified Hematuria presence: with hematuria Qualified Code(s): N39.0 - Urinary tract infection, site not specified; R31.9 - Hematuria, unspecified (2) Acute kidney injury Current Visit: No Status: Acute (3) Vitamin B12 deficiency Current Visit: Yes Status: Acute (4) COPD (chronic obstructive pulmonary disease) Current Visit: No Status: Chronic Qualifiers: COPD type: chronic bronchitis Chronic bronchitis type: unspecified Qualified Code(s): J42 - Unspecified chronic bronchitis (5) DVT prophylaxis Current Visit: No Status: Acute (6) Essential hypertension Current Visit: No Status: Chronic (7) Recurrent UTI Current Visit: No Status: Acute - Subjective Interval history: No acute events. Ate breakfast "some of it" but daughter at bedside says she doesn't eat much to begin with. She denies fevers/chills, n/v, dysuria, foul urine odor, frequency, hematuria. - Constitutional Vitals: Temp Pulse Resp BP Pulse Ox 97.7 F 74 14 191/85 93 11/26/17 20:14 11/26/17 20:14 11/26/17 20:14 11/26/17 20:14 11/26/17 20:14 General appearance: Present: A&O X 3 - Respiratory Respiratory exam: Present: CTAB. Absent: accessory muscle use, rales, rhonchi, wheezes - Cardiovascular Cardiovascular exam: Present: RRR, +S1, +S2. Absent: diastolic murmur, gallop, rubs, systolic murmur - Extremities Exam Extremities exam: Present: warm, radial pulses palpable and symmetrical. Absent : calf tenderness, cyanotic, pedal edema Internal Medicine: Result - Labs CBC & Chem 7: 11/26/17 04:24 11/26/17 04:24 Labs: Short CBC 11/26/17 Range/Units 04:24 WBC 6.8 (4.3-11.1) K/mcL Hgb 11.2 L (11.5-15.4) g/dL Hct 33.8 L (35.3-44.9) % Plt Count 273 (140-400) K/mcL Neutrophils # 4.5 (1.6-8.9) K/mcL BMP 11/26/17 04:24 Sodium 135 L Potassium 4.1 Chloride 104 Carbon Dioxide 24 BUN 24 H Creatinine 1.07 Glucose 160 H Calcium 9.2 Consult Discharge Plan - Plan Referrals: Sapna Ruiz MD [Primary Care Provider] - 12/05/17 11:00 am
[2017-11-27] MEDS: *HR* Heparin 5,000 UNIT/ML VIAL SQ SCH (04:38)
[2017-11-27] MEDS: *HR* OxyCODONE/APAP 5/325 TABLET PO PRN (04:47)
[2017-11-27] MEDS: (Fluticasone/Vilanterol [Breo Ellipta 100-25 Mcg Inh]) IH SCH (07:45)
[2017-11-27] MEDS: Folic Acid 1 MG TABLET PO SCH (07:59)
[2017-11-27] MEDS: FLUoxetine 20 MG CAPSULE PO SCH (07:59)
[2017-11-27] MEDS: amLODIPine 5 MG TABLET PO SCH (07:59)
[2017-11-27] MEDS: Magnesium Oxide 400 MG TABLET PO SCH (07:59)
[2017-11-27] MEDS: Cholecalciferol (D-3) 1,000 UNIT TABLET PO SCH (08:00)
--- NOTE | 2017-11-27 10:09 | Discharge Summary ---
Date of Encounter: 11/27/17 Time of Encounter: 10:04 - Discharge Diagnosis (1) UTI (urinary tract infection) Priority: Primary Status: Acute Qualifiers: Urinary tract infection type: site unspecified Hematuria presence: with hematuria Qualified Code(s): N39.0 - Urinary tract infection, site not specified; R31.9 - Hematuria, unspecified (2) Acute kidney injury Priority: Secondary Status: Acute (3) Vitamin B12 deficiency Priority: Secondary Status: Acute (4) COPD (chronic obstructive pulmonary disease) Priority: Secondary Status: Chronic Qualifiers: COPD type: chronic bronchitis Chronic bronchitis type: unspecified Qualified Code(s): J42 - Unspecified chronic bronchitis (5) DVT prophylaxis Priority: Secondary Status: Acute (6) Essential hypertension Priority: Secondary Status: Chronic (7) Recurrent UTI Priority: Secondary Status: Acute (8) Debility Priority: Secondary Status: Acute - Discharge Medications Prescriptions: Cephalexin [Keflex] 500 mg PO Q12H 7 Days #14 capsule Home Medications: Amitriptyline [Elavil] 10 mg PO HS 09/02/15 [History] Amlodipine [Amlodipine Besylate] 10 mg PO DAILY 09/02/15 [History] Metformin [Glucophage] 1,000 mg PO BID 09/02/15 [History] Atorvastatin Calcium [Lipitor] 20 mg PO HS 04/28/16 [History] Cholecalciferol (Vitamin D3) [Vitamin D3] 1,000 unit PO DAILY 04/28/16 [History] FLUoxetine HCl [Prozac] 20 mg PO DAILY 04/28/16 [History] Docusate [Colace] 100 mg PO BID #60 capsule 04/30/16 [Rx] Fluticasone Propionate Nasal [Flonase] 50 mcg NS BID 06/15/16 [History] Nitroglycerin [Nitrostat] 0.4 mg SL AD PRN 06/15/16 [History] Ferrous Sulfate 325 mg PO TIDWM #90 tablet 06/17/16 [Rx] Folic Acid 5 mg PO DAILY #30 tablet 06/17/16 [Rx] LORazepam [Ativan] 1 mg PO HS #30 tablet 06/17/16 [Rx] Magnesium Oxide [Mag-Ox] 400 mg PO DAILY #14 tablet 06/17/16 [Rx] Allopurinol [Zyloprim] 300 mg PO DAILY 11/23/17 [History] Fluticasone/Vilanterol [Breo Ellipta 100-25 Mcg INH] 1 puff IH DAILY 11/23/17 [ History] Furosemide [Lasix] 20 mg PO DAILY 11/23/17 [History] Omeprazole [PriLOSEC] 20 mg PO DAILY 11/23/17 [History] Oxybutynin Chloride [Ditropan Xl] 10 mg PO DAILY 11/23/17 [History] Cephalexin [Keflex] 500 mg PO Q12H 7 Days #14 capsule 11/27/17 [Rx] Allergies/Adverse Reactions: 3 Allergy/AdvReac Type Severity Reaction Status Date / Time No Known Allergies Allergy Verified 01/03/17 07:17 Date of admission: 11/23/17 12:35 Primary care physician: Sapna Ruiz, Consults: 11/24/17 10:12 Consult to Occupational Therapy [CONS] Routine Comment: Evaluate, develop and implement POC Reason for Consult: weakness Consult to Physical Therapy [CONS] Routine Comment: Evaluate, develop and implement POC Reason for Consult: weakness Discharging clinician: Stephanie Malone - Patient Status Disposition: Home Health Service Condition: Fair Functional capacity at discharge: uses cane/walker Overall status at discharge: patient is progressing back to baseline - Discharge Instructions Follow Up With: Sapna Ruiz MD [Primary Care Provider] - 12/05/17 11:00 am - Diet and Activity Activity: increase activity as tolerated Diet: advance to your usual diet Hospital course: Ms. Burch is a 87-year-old female history of hypertension, hyperlipidemia, diabetes, status post CABG who presents to the ER with multiple complaints. Patient reports symptoms for the last roughly 2 weeks in duration. States that she has been seen by her primary care provider and completed a course of antibiotics for UTI. She also reports she has had aches in her back as well as hips and knees. States that at times she feels like she has hot places on her skin. Family states that she has had worsening weakness requiring more help at home with ambulation. They deny any fevers. No dysuria or hematuria. States she has had abdominal pain as well as nausea and vomiting for the last few days and has not wanted to eat. Also reports that she has been more short of breath with ambulation at home. She also complains of numbness and tingling on the extremities. Family report that she had low magnesium in the past and received magnesium supplement. She she denies headache, seizure. At the ED, she was found to have UTI. Labs are remarkable for acute kidney injury and a urinary infection. She received 1 dose of Rocephin and will be admitted to the inpatient service. Vitamin B12 level was checked for complaints of numbness and was low in 100s, she received a b12 SQ injection. Recommend that she starts on B12 supplementation, will defer dosing to primary care physician. She was continued on Rocephin for additional 4 days. Appetite improved, and RASHID resolved. Complained of weakness and so home PT referral made. She was discharged home to complete 7 days of Keflex. - Time Spent with Patient Total time spent providing and/or coordinating discharge services: - Constitutional Vitals: Temp Pulse Resp BP Pulse Ox 98.7 F 90 15 152/76 95 11/26/17 23:38 11/26/17 23:38 11/26/17 23:38 11/26/17 23:38 11/26/17 23:38 General appearance: Present: A&O X 3 Exam: - Respiratory Respiratory exam: Present: CTAB. Absent: accessory muscle use, rales, rhonchi, wheezes - Cardiovascular Cardiovascular exam: Present: RRR, +S1, +S2. Absent: diastolic murmur, gallop, rubs, systolic murmur - Extremities Exam Extremities exam: Present: warm, radial pulses palpable and symmetrical. Absent : calf tenderness, cyanotic, pedal edema
--- NOTE | 2017-11-27 10:21 | Physician Discharge Referral ---
Home Health/Hosp Referral Info Transfer to: Home Health - Diagnosis (1) UTI (urinary tract infection) Priority: Primary Status: Acute (2) Acute kidney injury Priority: Secondary Status: Acute (3) Vitamin B12 deficiency Priority: Secondary Status: Acute (4) COPD (chronic obstructive pulmonary disease) Priority: Secondary Status: Chronic (5) DVT prophylaxis Priority: Secondary Status: Acute (6) Essential hypertension Priority: Secondary Status: Chronic (7) Recurrent UTI Priority: Secondary Status: Acute (8) Debility Priority: Secondary Status: Acute - Respiratory Orders Smoking Cessation: Smoking cessation has been advised. For more information, call the [place] Tobacco Quit Line at 2-351-OZADNOW. - Services Needed Following services are medically necessary services: Physical Therapy, Occupational Therapy - Transfer Medications Prescriptions: Cephalexin [Keflex] 500 mg PO Q12H 7 Days #14 capsule Home Medications: Amitriptyline [Elavil] 10 mg PO HS 09/02/15 [History] Amlodipine [Amlodipine Besylate] 10 mg PO DAILY 09/02/15 [History] Metformin [Glucophage] 1,000 mg PO BID 09/02/15 [History] Atorvastatin Calcium [Lipitor] 20 mg PO HS 04/28/16 [History] Cholecalciferol (Vitamin D3) [Vitamin D3] 1,000 unit PO DAILY 04/28/16 [History] FLUoxetine HCl [Prozac] 20 mg PO DAILY 04/28/16 [History] Docusate [Colace] 100 mg PO BID #60 capsule 04/30/16 [Rx] Fluticasone Propionate Nasal [Flonase] 50 mcg NS BID 06/15/16 [History] Nitroglycerin [Nitrostat] 0.4 mg SL AD PRN 06/15/16 [History] Ferrous Sulfate 325 mg PO TIDWM #90 tablet 06/17/16 [Rx] Folic Acid 5 mg PO DAILY #30 tablet 06/17/16 [Rx] LORazepam [Ativan] 1 mg PO HS #30 tablet 06/17/16 [Rx] Magnesium Oxide [Mag-Ox] 400 mg PO DAILY #14 tablet 06/17/16 [Rx] Allopurinol [Zyloprim] 300 mg PO DAILY 11/23/17 [History] Fluticasone/Vilanterol [Breo Ellipta 100-25 Mcg INH] 1 puff IH DAILY 11/23/17 [ History] Furosemide [Lasix] 20 mg PO DAILY 11/23/17 [History] Omeprazole [PriLOSEC] 20 mg PO DAILY 11/23/17 [History] Oxybutynin Chloride [Ditropan Xl] 10 mg PO DAILY 11/23/17 [History] Cephalexin [Keflex] 500 mg PO Q12H 7 Days #14 capsule 11/27/17 [Rx] Allergies/Adverse Reactions: 3 Allergy/AdvReac Type Severity Reaction Status Date / Time No Known Allergies Allergy Verified 01/03/17 07:17 Certification: Further, I certify that my clinical findings support that this patient is homebound (i.e. absences from home require considerable and taxing effort and are for medical reasons or anglican services or infrequently or short duration when for other reasons) because: Homebound Reason: Patient requires assistance of a person or device to safely leave home, Leaving home requires considerable and taxing effort due to condition Attestation: My signature below is to certify that this patient is under my care and that I, or nurse practitioner, or a physician's judicial administrative assistant working with me, has a face-to -face encounter with this patient.
== END 2017-11-27 11:00 | disposition home health service (06) | DRG 690 ==
LOC: EMEROO 08:18 → 3ANU 08:18
PROVIDERS: ADMIT Internal Medicine Nephrology; ATTEND Internal Medicine

== ENCOUNTER 2018-01-18 08:47 | Inpatient (IN) ==
--- NOTE | 2018-01-18 09:04 | Emergency Department Note ---
Disposition Clinical Impression: COPD exacerbation Pneumonia Qualifiers: Pneumonia type: due to unspecified organism Laterality: unspecified laterality Lung location: unspecified part of lung Qualified Code(s): J18.9 - Pneumonia, unspecified organism Disposition: Admitted As Inpatient Condition: Good SOB HPI - General Chief Complaint: ED Shortness of Breath/Dyspnea Stated Complaint: ELVIA, cough Time Seen by Provider: 01/18/18 08:56 Source: patient, family Limitations: no limitations Nursing Notes Reviewed: Yes Vital Signs Reviewed: Yes - History of Present Illness Past medical history of diabetes, CAD with valvular disease, hypertension, hyperlipidemia, TIA. Patient here for evaluation of difficulty breathing and cough. Started 1 week ago treated by primary care physician for pneumonia. Patient is complaining of fever, body aches, cough. Patient has had productive sputum over the last day. Patient has chest pain and back pain with coughing. Patient states cough is been going on for about 5 days. Triage patient does have a temperature of 100. Diffuse wheezing and rhonchi on exam. 91% on room air. Placed on oxygen and feels much better. Patient will likely need admission for COPD exacerbation failed outpatient should management as well as possible pneumonia. Chest x-ray pending. - Related Data Home Medications Medication Instructions Recorded Confirmed Amitriptyline [Elavil] 10 mg PO HS 09/02/15 01/18/18 Amlodipine [Amlodipine Besylate] 10 mg PO DAILY 09/02/15 01/18/18 Metformin [Glucophage] 1,000 mg PO BID 09/02/15 01/18/18 Atorvastatin Calcium [Lipitor] 20 mg PO HS 04/28/16 01/18/18 Cholecalciferol (Vitamin D3) 1,000 unit PO DAILY 04/28/16 01/18/18 [Vitamin D3] FLUoxetine HCl [Prozac] 20 mg PO DAILY 04/28/16 01/18/18 Fluticasone Propionate Nasal 50 mcg NS BID 06/15/16 01/18/18 [Flonase] Nitroglycerin [Nitrostat] 0.4 mg SL AD PRN 06/15/16 01/18/18 Allopurinol [Zyloprim] 300 mg PO DAILY 11/23/17 01/18/18 Fluticasone/Vilanterol [Breo 1 puff IH DAILY 11/23/17 01/18/18 Ellipta 100-25 Mcg INH] Furosemide [Lasix] 20 mg PO DAILY 11/23/17 01/18/18 Omeprazole [PriLOSEC] 20 mg PO DAILY 11/23/17 01/18/18 Oxybutynin Chloride [Ditropan Xl] 10 mg PO DAILY 11/23/17 01/18/18 Albuterol Neb [Proventil Neb] 2.5 mg IH QID PRN 01/18/18 01/18/18 Albuterol Sulfate [Ventolin Hfa] 2 puff IH Q4H 01/18/18 01/18/18 Aspirin [Lo-Dose Aspirin EC] 81 mg PO DAILY 01/18/18 01/18/18 Glimepiride [Amaryl] 4 mg PO QAM 01/18/18 01/18/18 Meloxicam [Mobic] 15 mg PO DAILY 01/18/18 01/18/18 Sitagliptin Phosphate [Januvia] 50 mg PO DAILY 01/18/18 01/18/18 Vit A/Vit C/Vit E/Zinc/Copper 1 tab PO DAILY 01/18/18 01/18/18 [Preservision Areds Tablet] Previous Rx's Medication Instructions Recorded Docusate [Colace] 100 mg PO BID #60 capsule 04/30/16 Ferrous Sulfate 325 mg PO TIDWM #90 tablet 06/17/16 Folic Acid 5 mg PO DAILY #30 tablet 06/17/16 LORazepam [Ativan] 1 mg PO HS #30 tablet 06/17/16 Magnesium Oxide [Mag-Ox] 400 mg PO DAILY #14 tablet 06/17/16 Oxycodone HCl/Acetaminophen 1 each PO Q8H #15 tablet 11/27/17 [Percocet 5-325 mg Tablet] Allergies Allergy/AdvReac Type Severity Reaction Status Date / Time No Known Allergies Allergy Verified 01/03/17 07:17 Review of Systems: CONSTITUTIONAL: Subjective fever chills and malaise HEENT: Eyes: No visual changes. Ears, Nose, Throat: No hearing loss, difficulty talking or unable to swallow. SKIN: No rash or itching. CARDIOVASCULAR: No chest pain, chest pressure or chest discomfort. No palpitations or edema. RESPIRATORY: SOB; cough GASTROINTESTINAL: No anorexia, nausea, vomiting or diarrhea. No abdominal pain or blood. GENITOURINARY: No burning on urination or hematuria. NEUROLOGICAL: No headache, dizziness, syncope, paralysis, ataxia, numbness or tingling in the extremities. No change in bowel or bladder control. MUSCULOSKELETAL: No muscle pain, back pain, joint pain or stiffness. 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 - Social History Smoking Status: Never smoker Smokeless Tobacco Status: No Alcohol use: Reports: none Drug use: Reports: none Physical Exam General: Well appearing, nontoxic, no acute distress Head: Normocephalic Atraumatic Eyes: PERRL, EOMI ENT: Airway patent, no stridor Neck: supple, no meningismus Chest: Diffuse wheezing and rhonchi Cardiac: Regular rate and rhythm, no murmurs, rubs or gallops Abdomen: soft, nontender, nondistended; no guarding, rebound, or tenderness to percussion Musculoskeletal: Calves symmetric, nontender, no palpable cord Skin: No rash, normal skin tone Neuro: Alert and Oriented to person, place, and time; No focal deficit, CN 2-12 symmetric and intact - General Limitations: no limitations General appearance: alert Course - Reevaluation(s) Reevaluation #1: Discussed with the patient. Patient feels significantly better on oxygen. Patient's breathing treatments did not significantly help her cough. At this point patient chest x-ray is negative but her white count is elevated. She is unsure about steroid use by PCP. Antibiotic was azithromycin. Patient placed on Levaquin. He has steroids initially been given. Patient will need admission for failed outpatient management of COPD and clinical pneumonia Vital Signs Temperature 100 F H 01/18/18 08:49 Pulse Rate 77 01/18/18 08:49 Respiratory Rate 18 01/18/18 08:49 Blood Pressure 147/79 01/18/18 08:49 O2 Sat by Pulse Oximetry 93 01/18/18 08:49 Temperature 98.9 F 01/18/18 19:07 Pulse Rate 72 01/18/18 19:07 Respiratory Rate 16 01/18/18 19:07 Blood Pressure 119/66 01/18/18 19:07 O2 Sat by Pulse Oximetry 94 01/18/18 19:07 Oxygen Delivery Oxygen Delivery Nasal Cannula Shortness of Breath/Dyspnea - Medical Records Medical records reviewed: Yes I reviewed the patient's medical records. - Lab Data Lab results reviewed: Yes I reviewed the patient's lab results. Result diagrams: 01/18/18 09:23 01/18/18 09:23 Lab Results 01/18/18 01/18/18 01/18/18 Range/Units 09:23 09:23 09:23 WBC 19.1 H (4.3-11.1) K/mcL RBC 3.80 L (3.82-4.97) M/mcL Hgb 11.9 (11.5-15.4) g/dL Hct 36.5 (35.3-44.9) % MCV 96.1 (83.0-100.0) fL MCH 31.3 (28.0-33.3) pg MCHC 32.6 (31.6-35.5) g/dL RDW 13.8 (11.5-14.5) % Plt Count 233 (140-400) K/mcL MPV 9.8 (9.4-12.4) fL Immature Gran % 0.8 (0-4) % Seg Neutrophils % 84.8 % Lymphocytes % 7.8 % Monocytes % 5.0 % Eosinophils % 1.4 % Basophils % 0.2 % Neutrophils # 16.2 H (1.6-8.9) K/mcL Lymphocytes # 1.5 (0.6-4.6) K/mcL Monocytes # 1.0 (0.0-1.3) K/mcL Eosinophils # 0.3 (0.0-0.6) K/mcL Basophils # 0.0 (0.0-0.2) K/mcL Immature Plt Fraction 3.2 (1.1-6.1) % Sodium 137 (136-145) mEq/L Potassium 4.1 (3.5-5.1) mEq/L Chloride 102 (98-107) mEq/L Carbon Dioxide 25 (23-29) mEq/L BUN 27 H (8-23) mg/dL Creatinine 0.89 (0.60-1.20) mg/dL Est GFR ( Amer) > 60 (> 60) Est GFR (Non-Af Amer) > 60 (> 60) BUN/Creatinine Ratio 30 H (6-26) Glucose 220 H (70-105) mg/dL Calculated Osmolality 296 (280-300) Lactic Acid 2.1 (0.5-2.2) mmol/L Calcium 9.8 (8.6-10.3) mg/dL Troponin I (< 0.04) ng/mL 01/18/18 Range/Units 09:23 WBC (4.3-11.1) K/mcL RBC (3.82-4.97) M/mcL Hgb (11.5-15.4) g/dL Hct (35.3-44.9) % MCV (83.0-100.0) fL MCH (28.0-33.3) pg MCHC (31.6-35.5) g/dL RDW (11.5-14.5) % Plt Count (140-400) K/mcL MPV (9.4-12.4) fL Immature Gran % (0-4) % Seg Neutrophils % % Lymphocytes % % Monocytes % % Eosinophils % % Basophils % % Neutrophils # (1.6-8.9) K/mcL Lymphocytes # (0.6-4.6) K/mcL Monocytes # (0.0-1.3) K/mcL Eosinophils # (0.0-0.6) K/mcL Basophils # (0.0-0.2) K/mcL Immature Plt Fraction (1.1-6.1) % Sodium (136-145) mEq/L Potassium (3.5-5.1) mEq/L Chloride (98-107) mEq/L Carbon Dioxide (23-29) mEq/L BUN (8-23) mg/dL Creatinine (0.60-1.20) mg/dL Est GFR ( Amer) (> 60) Est GFR (Non-Af Amer) (> 60) BUN/Creatinine Ratio (6-26) Glucose (70-105) mg/dL Calculated Osmolality (280-300) Lactic Acid (0.5-2.2) mmol/L Calcium (8.6-10.3) mg/dL Troponin I < 0.03 (< 0.04) ng/mL - Radiology Data Radiology results reviewed: Yes I reviewed the patient's radiology results. - EKG Data EKG attestation: Yes I reviewed and interpreted this EKG. EKG results narrative: Patient has supraventricular rhythm with poor baseline secondary to artifacts. Ventricular rate of 74. QRS 90. QTC 411. Attestation Statement - Attestation Attestation: I examined this patient and my medical decision-making was reviewed with the Resident Physician. I agree with the documented findings, disposition and treatment plan as described except to the extent set forth below. Patient with cough and not feeling well. She still bad since Tuesday. She saw her PCP on Tuesday and was started on Zithromax. She states she has continue to get worse. She is coughing and she cannot sleep. On examination she is coughing. Rhonchi and wheezing bilaterally. Low-grade temperature 100. Plan. Cardiac workup. Nebs and steroids. Antibiotic. Likely admission. Patient satting 91% on my evaluation was placed on oxygen.
[2018-01-18] MEDS ORDERED: Ipratropium/Albuterol Neb 3 ML IH ONE (09:31)
[2018-01-18] MEDS ORDERED: predniSONE 20 MG TABLET PO ONE (09:31)
[2018-01-18 09:36] LABS: Basophils % 0.2 %; Eosinophils # 0.3 K/mcL (0.0-0.6); Eosinophils % 1.4 %; Hematocrit 36.5 % (35.3-44.9); Hemoglobin 11.9 g/dL (11.5-15.4); Immature Granulocytes % 0.8 % (0-4); Immature Platelets 3.2 % (1.1-6.1); Lymphocytes # 1.5 K/mcL (0.6-4.6); Lymphocytes % 7.8 %; Mean Corpuscular HGB Conc 32.6 g/dL (31.6-35.5); Mean Corpuscular Hemoglobin 31.3 pg (28.0-33.3); Mean Corpuscular Volume 96.1 fL (83.0-100.0); Mean Platelet Volume 9.8 fL (9.4-12.4); Neutrophils # 16.2 K/mcL (1.6-8.9); Platelet Count 233 K/mcL (140-400); Red Cell Distribution Width 13.8 % (11.5-14.5); Segmented Neutrophils % 84.8 %
[2018-01-18 09:52] LABS: BUN/Creatinine Ratio 30 (6-26); Blood Urea Nitrogen 27 mg/dL (8-23); Calcium 9.8 mg/dL (8.6-10.3); Carbon Dioxide 25 mEq/L (23-29); Chloride 102 mEq/L (98-107); Glucose 220 mg/dL (70-105); Osmolality,Calculated 296 (280-300); Potassium 4.1 mEq/L (3.5-5.1); Sodium 137 mEq/L (136-145); eGFR For African Americans > 60 (> 60); eGFR For Non-African Americans > 60 (> 60)
[2018-01-18] MEDS ORDERED: Levofloxacin 500 MG/100 ML 500 MG/100 ML BAG IVPB ONE (10:33)
[2018-01-18] MEDS ORDERED: 0.9 % Sodium Chloride 1,000 ML IVC ONE (11:20)
[2018-01-18] MEDS ORDERED: *HR* HYDROcodone/Acet 5/325 mg TABLET PO PRN (11:38)
[2018-01-18] MEDS ORDERED: Acetaminophen 325 MG TABLET PO PRN (11:38)
[2018-01-18] MEDS ORDERED: Ondansetron 4 MG/2 ML VIAL IVP PRN (11:38)
[2018-01-18] MEDS ORDERED: *HR* Promethazine 25 MG/ML VIAL IVP PRN (11:38)
[2018-01-18] MEDS ORDERED: Mag Hydrox/Al Hydrox/Simeth 30 ML UDC PO PRN (11:38)
[2018-01-18] MEDS ORDERED: Naloxone 0.4 MG/ML INJ IVP PRN (11:38)
[2018-01-18] MEDS ORDERED: Albuterol 2.5 MG/3 ML NEBULIZER IH PRN (11:41)
[2018-01-18] MEDS ORDERED: 0.9 % Sodium Chloride 1,000 ML IVC SCH (11:45)
[2018-01-18] MEDS ORDERED: Dextrose Gel 15 GM/37.5 ML TUBE PO PRN ×2 (11:49)
[2018-01-18] MEDS ORDERED: *HR* Dextrose 50 % in Water (Syg) 50 ML SYRINGE IVP PRN (11:49)
[2018-01-18] MEDS ORDERED: D5% in Water 1,000 ML IVC PRN (11:49)
--- NOTE | 2018-01-18 11:55 | Internal Med History&Physical ---
Date of Encounter: 01/18/18 Time of Encounter: 11:20 Assessment and Plan (1) SIRS (systemic inflammatory response syndrome) Current visit: Yes Status: Acute Admitted that patient into [facility] she does SIRS / mild sepsis criteria with elevated WBC, low-grade fever at 100.0 and source of infection and bronchitis I would send for sputum culture, strep pneumonia, Legionella and Respiratory viral panel started her on gentle IV hydration reviewed CXR by myself did not show any acute infiltrations or consolidations however she does have significant pery bronchial coughing and thickening as well as some mild congestion continue empirical antibiotic Levaquin Cont Duoneb CARMINA and O2 we will try to win her of te O2 as she tolerates (2) Acute respiratory distress Current visit: Yes Status: Acute She is in acute respiratory distress due to COPD exacerbation triggered by possible bacterial bronchitis Cont Duoneb + O2 IV steroids at low dose (3) Acute bronchitis Current visit: Yes Status: Acute mostly bacterial on Levaquin Qualifiers: Qualified Code(s): J20.9 - Acute bronchitis, unspecified (4) COPD exacerbation Current visit: Yes Status: Acute (5) DM2 (diabetes mellitus, type 2) Current visit: Yes Status: Acute Held PO meds placed on ISS Qualifiers: Qualified Code(s): E11.9 - Type 2 diabetes mellitus without complications (6) Essential hypertension Current visit: No Status: Chronic stable with home meds resumed home meds Internal Medicine - H&P: HPI Chief complaint: Cough, SOB Admitted From: Emergency Dept Plans for Post Hospital Care: Home History of present illness: Ms. Burch is a 87 year old female with known past medical history of hypertension, CAD, diabetes type II, GERD, hyperlipidemia and COPD, not on home oxygen dependent patient presented to emergency room complaining about she has been having progressively worsening cough as well as shortness of breath, URI symptoms from last one week. She does have cough with clear sputum. Patient also complain about generalized body aches and flu like symptoms. She was seen by PCP and who started her azithromycin for bronchitis couple of days ago however her symptoms have not improved. Past Med Surg Social Fam HX - Past Medical History Medical history: coronary artery disease, diabetes, GERD, hyperlipidemia, hypertension, osteoporosis, renal disease, TIA, valvular heart disease Psychiatric history: depression - Past Surgical History Surgical History: hysterectomy, orthopedic, other, other - Social History Smoking Status: Never smoker Smokeless Tobacco Status: No Alcohol use: none Drug use: none - Family History Mother Living Status: Hx Family GI Disorders: Yes Internal Medicine - H&P: Meds Amitriptyline [Elavil] 10 mg PO HS 09/02/15 [History] Amlodipine [Amlodipine Besylate] 10 mg PO DAILY 09/02/15 [History] Metformin [Glucophage] 1,000 mg PO BID 09/02/15 [History] Atorvastatin Calcium [Lipitor] 20 mg PO HS 04/28/16 [History] Cholecalciferol (Vitamin D3) [Vitamin D3] 1,000 unit PO DAILY 04/28/16 [History] FLUoxetine HCl [Prozac] 20 mg PO DAILY 04/28/16 [History] Docusate [Colace] 100 mg PO BID #60 capsule 04/30/16 [Rx] Fluticasone Propionate Nasal [Flonase] 50 mcg NS BID 06/15/16 [History] Nitroglycerin [Nitrostat] 0.4 mg SL AD PRN 06/15/16 [History] Ferrous Sulfate 325 mg PO TIDWM #90 tablet 06/17/16 [Rx] Folic Acid 5 mg PO DAILY #30 tablet 06/17/16 [Rx] LORazepam [Ativan] 1 mg PO HS #30 tablet 06/17/16 [Rx] Magnesium Oxide [Mag-Ox] 400 mg PO DAILY #14 tablet 06/17/16 [Rx] Allopurinol [Zyloprim] 300 mg PO DAILY 11/23/17 [History] Fluticasone/Vilanterol [Breo Ellipta 100-25 Mcg INH] 1 puff IH DAILY 11/23/17 [ History] Furosemide [Lasix] 20 mg PO DAILY 11/23/17 [History] Omeprazole [PriLOSEC] 20 mg PO DAILY 11/23/17 [History] Oxybutynin Chloride [Ditropan Xl] 10 mg PO DAILY 11/23/17 [History] Oxycodone HCl/Acetaminophen [Percocet 5-325 mg Tablet] 1 each PO Q8H #15 tablet 11/27/17 [Rx] Albuterol Neb [Proventil Neb] 2.5 mg IH QID PRN 01/18/18 [History] Albuterol Sulfate [Ventolin Hfa] 2 puff IH Q4H 01/18/18 [History] Aspirin [Lo-Dose Aspirin EC] 81 mg PO DAILY 01/18/18 [History] Glimepiride [Amaryl] 4 mg PO QAM 01/18/18 [History] Meloxicam [Mobic] 15 mg PO DAILY 01/18/18 [History] Sitagliptin Phosphate [Januvia] 50 mg PO DAILY 01/18/18 [History] Vit A/Vit C/Vit E/Zinc/Copper [Preservision Areds Tablet] 1 tab PO DAILY [History] 3 Allergy/AdvReac Type Severity Reaction Status Date / Time No Known Allergies Allergy Verified 01/03/17 07:17 All Systems PM: A 10-system review of systems was performed and is negative for pertinent findings except as documented above in the HPI. Review of systems: All the systems are reviewed everything is benign except the systems and symptoms I mentioned in the history of present illness - Constitutional Vitals: Temp Pulse Resp BP Pulse Ox 100 F H 77 16 147/79 96 01/18/18 08:49 01/18/18 08:49 01/18/18 09:52 01/18/18 08:49 01/18/18 09:52 General appearance: Present: cooperative, A&O X 3, answers questions appropriately - Head Head exam: Present: atraumatic, normal inspection - Neck Neck exam general surgery: Present: supple - Respiratory Respiratory exam: Present: decreased breath sounds, respiratory distress (Mild) , rhonchi (Rhonchi, course breath sounds-bilaterally), wheezes (Moderate). Absent: rales - Cardiovascular Cardiovascular exam: Present: RRR, +S1, +S2. Absent: tachycardia - GI/Abdominal GI/Abdominal exam: Present: normal bowel sounds, soft. Absent: rebound, rigid, tenderness - Extremities Exam Extremities exam: Absent: calf tenderness, pedal edema, tenderness - Back Exam Back exam: Absent: CVA tenderness (L), CVA tenderness (R) - Neurological Exam Neurological exam: Present: alert, oriented X3 - Psychiatric Psychiatric exam: Present: normal affect, normal mood - Skin Skin exam: Absent: rash Internal Med - H&P Results - Labs CBC & Chem 7: 01/18/18 09:23 01/18/18 09:23 Labs: Short CBC 01/18/18 Range/Units 09:23 WBC 19.1 H (4.3-11.1) K/mcL Hgb 11.9 (11.5-15.4) g/dL Hct 36.5 (35.3-44.9) % Plt Count 233 (140-400) K/mcL Neutrophils # 16.2 H (1.6-8.9) K/mcL BMP 01/18/18 09:23 Sodium 137 Potassium 4.1 Chloride 102 Carbon Dioxide 25 BUN 27 H Creatinine 0.89 Glucose 220 H Calcium 9.8 Cardiac Enzymes 01/18/18 Range/Units 09:23 Troponin I < 0.03 (< 0.04) ng/mL - Impressions ITS Impressions Chest X-Ray 01/18/18 08:54 IMPRESSION: No acute cardiopulmonary disease. D/ / 01/18/2018 09:36:07 Gold Childs MD / Magalys Salcedo Interpreting Provider: Gold Childs MD
[2018-01-18] MEDS: Ipratropium/Albuterol Neb 3 ML IH SCH ×3 (16:33→19:52)
[2018-01-18] MEDS: Insulin LISPRO 300 UNITS/3 ML VIAL SQ SCH ×2 (16:56→21:34)
[2018-01-18] MEDS: MethylPREDNISolone 40 MG/ML VIAL IVP SCH (18:13)
[2018-01-18] MEDS: Fluticasone Propionate Nasal 50 MCG/SPRAY BOTTLE NS SCH (21:33)
[2018-01-18] MEDS: *HR* OxyCODONE/APAP 5/325 TABLET PO PRN (21:33)
[2018-01-18] MEDS: *HR* LORazepam 1 MG TABLET PO SCH (21:33)
[2018-01-19] MEDS: Ipratropium/Albuterol Neb 3 ML IH SCH ×7 (00:02→23:17)
[2018-01-19 05:47] LABS: Basophils % 0.1 %; Hematocrit 31.8 % (35.3-44.9); Hemoglobin 10.4 g/dL (11.5-15.4); Immature Granulocytes % 1.3 % (0-4); Lymphocytes % 8.8 %; Mean Corpuscular HGB Conc 32.7 g/dL (31.6-35.5); Mean Corpuscular Volume 94.6 fL (83.0-100.0); Mean Platelet Volume 10.1 fL (9.4-12.4); Monocytes # 0.2 K/mcL (0.0-1.3); Neutrophils # 9.7 K/mcL (1.6-8.9); Platelet Count 181 K/mcL (140-400); Red Blood Count 3.36 M/mcL (3.82-4.97); Red Cell Distribution Width 14.1 % (11.5-14.5); Segmented Neutrophils % 87.8 %
[2018-01-19] MEDS: MethylPREDNISolone 40 MG/ML VIAL IVP SCH ×2 (06:10→16:16)
[2018-01-19] MEDS: *HR* Enoxaparin 40 MG/0.4 ML SYRINGE SQ SCH (06:10)
[2018-01-19 06:34] LABS: BUN/Creatinine Ratio 35 (6-26); Blood Urea Nitrogen 33 mg/dL (8-23); Carbon Dioxide 22 mEq/L (23-29); Chloride 107 mEq/L (98-107); Glucose 274 mg/dL (70-105); Osmolality,Calculated 303 (280-300); Potassium 4.2 mEq/L (3.5-5.1); Sodium 138 mEq/L (136-145); eGFR For African Americans > 60 (> 60); eGFR For Non-African Americans 57 (> 60)
[2018-01-19] MEDS: Insulin LISPRO 300 UNITS/3 ML VIAL SQ SCH ×4 (08:52→21:46)
[2018-01-19] MEDS: Fluticasone Propionate Nasal 50 MCG/SPRAY BOTTLE NS SCH ×2 (08:53→19:29)
[2018-01-19] MEDS: Folic Acid 1 MG TABLET PO SCH (08:53)
[2018-01-19] MEDS: Magnesium Oxide 400 MG TABLET PO SCH (08:54)
[2018-01-19] MEDS: Aspirin Enteric Coated 81 MG Tablet PO SCH (08:54)
[2018-01-19] MEDS: Cholecalciferol (D-3) 1,000 UNIT TABLET PO SCH (08:54)
[2018-01-19] MEDS: amLODIPine 5 MG TABLET PO SCH (08:54)
[2018-01-19] MEDS: FLUoxetine 20 MG CAPSULE PO SCH (08:54)
[2018-01-19] MEDS ORDERED: Levofloxacin 750 MG/150 ML 750 MG/150 ML BAG IVPB SCH (09:00)
--- NOTE | 2018-01-19 10:00 | Internal Med Progress Note ---
Addendum entered and electronically signed by Moe Jacques DO 14:02: Edit to exam: Grade 3 a crescendo systolic murmur heard loudest at the 2nd intercostal space. Original Note: <Moe Jacques - Last Filed: 01/19/18 13:42> Date of Encounter: 01/19/18 Time of Encounter: 08:55 - Assessment and plan (1) SIRS (systemic inflammatory response syndrome) Current Visit: Yes Status: Acute Assessment and plan: Admitted with SIRS with elevated WBC, low-grade fever at 100.0 and source of infection and bronchitis Resolved- WBC improved today at 11 from 19 and temperature remained in normal range. Pending sputum culture. Legionella and Respiratory viral panel-negative Influenza- negative IV hydration-100mls/hr CXR on 01/18/18 - no acute process Continue Levaquin -Q48H Continue duoebs and IV steroids (2) COPD exacerbation Current Visit: Yes Status: Acute Assessment and plan: AECOPD with acute bronchitis notes temp outpatient improvement with steroid injection. CXR on 01/18/18 - no acute process Continue Levaquin -Q48H Continue duonebs Cont IV steroids-40mg Q12H Patient notes improvement. (3) Acute bronchitis Current Visit: Yes Status: Acute Assessment and plan: See plan for AECOPD. Qualifiers: Bronchitis organism: unspecified organism Qualified Code(s): J20.9 - Acute bronchitis, unspecified (4) Acute respiratory distress Current Visit: Yes Status: Acute Assessment and plan: Improved, see continued plan for AECOPD. (5) DM2 (diabetes mellitus, type 2) Current Visit: Yes Status: Acute Assessment and plan: Home meds held at admission: glimepiride, januvia, metformin BG initially 402, now 247. Continue SSI, may need to restart home meds vs basal insulin. Qualifiers: Diabetes mellitus complication status: without complication Diabetes mellitus moth exterminator insulin use: without senior care use Qualified Code(s): E11.9 - Type 2 diabetes mellitus without complications (6) Essential hypertension Current Visit: No Status: Chronic Assessment and plan: Currently controlled, continue to monitor. (7) DVT prophylaxis Current Visit: No Status: Acute Assessment and plan: SQ lovenox - Time Spent With Patient less than 15 minutes - Subjective Interval history: Patient sitting up on bedside; daughter present in room. Patient notes continued cough but feeling better overall. Patient states the Steroid inj she received 2 days ago as outpatient helped the most. No acute distress, afebrile. - Constitutional Vitals: Temp Pulse Resp BP Pulse Ox 98.3 F 70 18 143/76 97 01/19/18 07:27 01/19/18 07:27 01/19/18 07:27 01/19/18 07:27 01/19/18 07:27 General appearance: Present: cooperative, A&O X 3, answers questions appropriately - Head Head exam: Present: atraumatic, normocephalic - Eye Eye exam: Present: EOMI, conjuntiva pink, sclera anicteric - Neck Neck exam general surgery: Present: full ROM, supple - Respiratory Respiratory exam: Present: rales. Absent: accessory muscle use, rhonchi, wheezes - Cardiovascular Cardiovascular exam: Present: RRR, +S1, +S2. Absent: gallop, rubs - GI/Abdominal GI/Abdominal exam: Present: soft, no peritoneal signs. Absent: distended, tenderness - Extremities Exam Extremities exam: Present: warm. Absent: calf tenderness, cyanotic, pedal edema - Neurological Exam Neurological exam: Present: alert, oriented X3, no focal deficits. Absent: facial droop, speech deficit - Skin Skin exam: Present: dry, intact Internal Medicine: Result - Labs CBC & Chem 7: 01/19/18 05:20 01/19/18 05:20 Labs: Short CBC 01/19/18 Range/Units 05:20 WBC 11.1 (4.3-11.1) K/mcL Hgb 10.4 L D (11.5-15.4) g/dL Hct 31.8 L (35.3-44.9) % Plt Count 181 (140-400) K/mcL Neutrophils # 9.7 H (1.6-8.9) K/mcL BMP 01/19/18 05:20 Sodium 138 Potassium 4.2 Chloride 107 Carbon Dioxide 22 L BUN 33 H Creatinine 0.93 Glucose 274 H Calcium 9.0 Consult Discharge Plan - Plan Referrals: Sapna Ruiz MD [Primary Care Provider] - <Haider Leblanc - Last Filed: 01/19/18 19:16> Date of Encounter: 01/19/18 - Assessment and plan (1) Acute respiratory failure Current Visit: Yes Status: Acute Qualifiers: Respiratory failure complication: hypoxia Qualified Code(s): J96.01 - Acute respiratory failure with hypoxia (2) Sepsis Current Visit: Yes Status: Resolved Qualifiers: Sepsis type: sepsis due to unspecified organism Qualified Code(s): A41.9 - Sepsis, unspecified organism (3) COPD exacerbation Current Visit: Yes Status: Acute (4) Acute bronchitis Current Visit: Yes Status: Acute Qualifiers: Bronchitis organism: unspecified organism Qualified Code(s): J20.9 - Acute bronchitis, unspecified (5) DM2 (diabetes mellitus, type 2) Current Visit: Yes Status: Acute Qualifiers: Diabetes mellitus complication status: without complication Diabetes mellitus senior care insulin use: without moth exterminator use Qualified Code(s): E11.9 - Type 2 diabetes mellitus without complications (6) Essential hypertension Current Visit: No Status: Chronic - Time Spent With Patient My time was 35min - Constitutional Vitals: Temp Pulse Resp BP Pulse Ox 98.1 F 69 16 137/72 95 01/19/18 18:39 01/19/18 18:39 01/19/18 18:39 01/19/18 18:39 01/19/18 18:39 Internal Medicine: Result - Labs CBC & Chem 7: 01/19/18 05:20 01/19/18 05:20 Labs: Short CBC 01/19/18 Range/Units 05:20 WBC 11.1 (4.3-11.1) K/mcL Hgb 10.4 L D (11.5-15.4) g/dL Hct 31.8 L (35.3-44.9) % Plt Count 181 (140-400) K/mcL Neutrophils # 9.7 H (1.6-8.9) K/mcL BMP 01/19/18 05:20 Sodium 138 Potassium 4.2 Chloride 107 Carbon Dioxide 22 L BUN 33 H Creatinine 0.93 Glucose 274 H Calcium 9.0 - Attending Attestation I examined this patient and my medical decision-making was reviewed with the Resident Physician on 01/19/18. I agree with the documented findings, disposition and treatment plan as described except to the extent set forth below. Ms Burch is currently admitted for sepsis related to acute exac COPD. She remains moderate to high risk due to potential for worsening clinical status. Ms Burch is feeling a little better. She is still coughing and unable to move sputum. No fever or chills. WBC now normal. Remains on oxygen. Exam alert Comfortable Mucus membranes dry Heart reg with murmur Lungs with rhonchi and wheeze abd soft I/P 1. Hypoxia 2. COPD 3. Sepsis Further diagnoses and plan as above.
--- NOTE | 2018-01-19 15:25 | Electrocardiograph Report ---
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
[2018-01-19] MEDS: *HR* LORazepam 1 MG TABLET PO SCH (19:24)
[2018-01-19] MEDS: *HR* OxyCODONE/APAP 5/325 TABLET PO PRN (19:28)
[2018-01-20 01:19] LABS: Basophils % 0.1 %; Hematocrit 33.3 % (35.3-44.9); Hemoglobin 11.1 g/dL (11.5-15.4); Immature Granulocytes % 1.9 % (0-4); Lymphocytes # 1.2 K/mcL (0.6-4.6); Lymphocytes % 8.7 %; Mean Corpuscular HGB Conc 33.3 g/dL (31.6-35.5); Mean Corpuscular Hemoglobin 31.8 pg (28.0-33.3); Mean Corpuscular Volume 95.4 fL (83.0-100.0); Mean Platelet Volume 9.9 fL (9.4-12.4); Monocytes # 0.3 K/mcL (0.0-1.3); Monocytes % 2.4 %; Neutrophils # 11.6 K/mcL (1.6-8.9); Platelet Count 216 K/mcL (140-400); Red Blood Count 3.49 M/mcL (3.82-4.97); Red Cell Distribution Width 13.8 % (11.5-14.5); Segmented Neutrophils % 86.9 %
[2018-01-20 01:47] LABS: BUN/Creatinine Ratio 43 (6-26); Blood Urea Nitrogen 40 mg/dL (8-23); Calcium 9.5 mg/dL (8.6-10.3); Carbon Dioxide 23 mEq/L (23-29); Chloride 106 mEq/L (98-107); Glucose 240 mg/dL (70-105); Osmolality,Calculated 300 (280-300); Potassium 4.2 mEq/L (3.5-5.1); Sodium 136 mEq/L (136-145); eGFR For African Americans > 60 (> 60); eGFR For Non-African Americans 57 (> 60)
[2018-01-20] MEDS: Ipratropium/Albuterol Neb 3 ML IH SCH ×6 (03:40→23:31)
[2018-01-20] MEDS: *HR* Enoxaparin 40 MG/0.4 ML SYRINGE SQ SCH (05:17)
[2018-01-20] MEDS: MethylPREDNISolone 40 MG/ML VIAL IVP SCH ×2 (05:17→17:33)
[2018-01-20] MEDS ORDERED: Levofloxacin 750 MG/150 ML 750 MG/150 ML BAG IVPB SCH (09:00)
[2018-01-20] MEDS: Insulin LISPRO 300 UNITS/3 ML VIAL SQ SCH ×4 (09:14→20:31)
[2018-01-20] MEDS: amLODIPine 5 MG TABLET PO SCH (09:15)
[2018-01-20] MEDS: FLUoxetine 20 MG CAPSULE PO SCH (09:15)
[2018-01-20] MEDS: Cholecalciferol (D-3) 1,000 UNIT TABLET PO SCH (09:15)
[2018-01-20] MEDS: Aspirin Enteric Coated 81 MG Tablet PO SCH (09:15)
[2018-01-20] MEDS: Magnesium Oxide 400 MG TABLET PO SCH (09:15)
[2018-01-20] MEDS: Folic Acid 1 MG TABLET PO SCH (09:15)
[2018-01-20] MEDS: Fluticasone Propionate Nasal 50 MCG/SPRAY BOTTLE NS SCH ×2 (09:16→20:23)
--- NOTE | 2018-01-20 10:42 | Internal Med Progress Note ---
<Moe Jacques - Last Filed: 01/20/18 13:42> Date of Encounter: 01/20/18 Time of Encounter: 09:10 - Assessment and plan (1) COPD exacerbation Current Visit: Yes Status: Acute Assessment and plan: AECOPD with acute bronchitis CXR on 01/18/18 - no acute process Continue supplemental O2 as needed. Continue Levaquin -Q48H Continue duonebs Cont IV steroids-40mg Q12H Patient notes improvement, able to cough up sputum today. -Likely will be able to discharge home tomorrow. Patient has home health. (2) Acute bronchitis Current Visit: Yes Status: Acute Assessment and plan: See plan for AECOPD. Qualifiers: Bronchitis organism: unspecified organism Qualified Code(s): J20.9 - Acute bronchitis, unspecified (3) SIRS (systemic inflammatory response syndrome) Current Visit: Yes Status: Acute Assessment and plan: Admitted with SIRS with elevated WBC, low-grade fever at 100.0 and source of infection and bronchitis WBC 19>11>13 Afebrile currently. Vitals stable. Pending sputum culture. Legionella and Respiratory viral panel-negative Influenza- negative IV hydration-100mls/hr CXR on 01/18/18 - no acute process Continue Levaquin -Q48H Continue duoebs and IV steroids Consider discharging on steroid taper. (4) Acute respiratory distress Current Visit: Yes Status: Acute Assessment and plan: Improved, see continued plan for AECOPD. (5) DM2 (diabetes mellitus, type 2) Current Visit: Yes Status: Acute Assessment and plan: Home meds held at admission: glimepiride, januvia, metformin BG elevated, patient on IV steroids. Continue SSI, may need to restart home meds vs basal insulin. Qualifiers: Diabetes mellitus complication status: without complication Diabetes mellitus nursing home insulin use: without nursing home use Qualified Code(s): E11.9 - Type 2 diabetes mellitus without complications (6) Essential hypertension Current Visit: No Status: Chronic Assessment and plan: Currently controlled, continue to monitor. (7) DVT prophylaxis Current Visit: No Status: Acute Assessment and plan: SQ lovenox - Time Spent With Patient less than 15 minutes - Subjective Interval history: Patient seen and examined, sitting up on bedside. Patient notes continued cough but feeling better overall. Patient states she is able to get secretions No acute distress, afebrile. - Constitutional Vitals: Temp Pulse Resp BP Pulse Ox 97.6 F 75 18 141/70 93 01/20/18 06:53 01/20/18 06:53 01/20/18 08:40 01/20/18 06:53 01/20/18 08:40 General appearance: Present: cooperative, A&O X 3, no acute distress, answers questions appropriately - Head Head exam: Present: atraumatic, normocephalic - Eye Eye exam: Present: EOMI, conjuntiva pink - Neck Neck exam general surgery: Present: full ROM, supple, trachea midline - Respiratory Respiratory exam: Present: rales, rhonchi, wheezes Additional comments: diffuse coarse breath sounds. - Cardiovascular Cardiovascular exam: Present: RRR, +S1, +S2, systolic murmur (grade 3 loudest at 2nd intercostal space.). Absent: gallop, rubs - GI/Abdominal GI/Abdominal exam: Present: normal bowel sounds, soft, no peritoneal signs. Absent: distended, tenderness - Extremities Exam Extremities exam: Present: warm. Absent: calf tenderness, cyanotic, pedal edema - Neurological Exam Neurological exam: Present: alert, oriented X3, no focal deficits. Absent: facial droop, speech deficit - Skin Skin exam: Present: dry, intact Internal Medicine: Result - Labs CBC & Chem 7: 01/20/18 01:08 01/20/18 01:08 Labs: Short CBC 01/20/18 Range/Units 01:08 WBC 13.4 H (4.3-11.1) K/mcL Hgb 11.1 L (11.5-15.4) g/dL Hct 33.3 L (35.3-44.9) % Plt Count 216 (140-400) K/mcL Neutrophils # 11.6 H (1.6-8.9) K/mcL BMP 01/20/18 01:08 Sodium 136 Potassium 4.2 Chloride 106 Carbon Dioxide 23 BUN 40 H Creatinine 0.93 Glucose 240 H Calcium 9.5 Consult Discharge Plan - Plan Referrals: Sapna Ruiz MD [Primary Care Provider] - <Haider Leblanc - Last Filed: 01/20/18 16:42> Date of Encounter: 01/20/18 - Assessment and plan (1) COPD exacerbation Current Visit: Yes Status: Acute (2) Acute bronchitis Current Visit: Yes Status: Acute Assessment and plan: Probable viral illness - ? influenza - pt did not want RIP Qualifiers: Bronchitis organism: other organism Qualified Code(s): J20.8 - Acute bronchitis due to other specified organisms (3) DM2 (diabetes mellitus, type 2) Current Visit: Yes Status: Acute Qualifiers: Diabetes mellitus complication status: without complication Diabetes mellitus terminal worker insulin use: without nursing home use Qualified Code(s): E11.9 - Type 2 diabetes mellitus without complications (4) Essential hypertension Current Visit: No Status: Chronic (5) Acute respiratory failure Current Visit: Yes Status: Ruled-out Assessment and plan: Pt has not been below 90% saturation this admission. Qualifiers: Respiratory failure complication: hypoxia Qualified Code(s): J96.01 - Acute respiratory failure with hypoxia (6) Sepsis Current Visit: Yes Status: Resolved Qualifiers: Sepsis type: sepsis due to unspecified organism Qualified Code(s): A41.9 - Sepsis, unspecified organism - Time Spent With Patient My time was 38min - Constitutional Vitals: Temp Pulse Resp BP Pulse Ox 98.3 F 73 16 130/73 95 01/20/18 16:10 01/20/18 16:10 01/20/18 16:10 01/20/18 16:10 01/20/18 16:10 Internal Medicine: Result - Labs CBC & Chem 7: 01/20/18 01:08 01/20/18 01:08 Labs: Short CBC 01/20/18 Range/Units 01:08 WBC 13.4 H (4.3-11.1) K/mcL Hgb 11.1 L (11.5-15.4) g/dL Hct 33.3 L (35.3-44.9) % Plt Count 216 (140-400) K/mcL Neutrophils # 11.6 H (1.6-8.9) K/mcL BMP 01/20/18 01:08 Sodium 136 Potassium 4.2 Chloride 106 Carbon Dioxide 23 BUN 40 H Creatinine 0.93 Glucose 240 H Calcium 9.5 - Attending Attestation I examined this patient and my medical decision-making was reviewed with the Resident Physician on 01/20/18. I agree with the documented findings, disposition and treatment plan as described except to the extent set forth below. Ms Burch has been admitted for acute exac COPD and bronchitis. She remains moderate to high risk due to potential for worsening clinical status. Ms Burch is coughing and has been able to bring up a little sputum. No fever or chills. No CP. Feels she is breathing a little better today. Has been up and moving some. Exam alert. Comfortable Mucus membranes dry Heart reg with murmur Lungs with scattered end exp wheeze and anterior rhonchi Abd soft I/P 1. COPD exac 2. Bronchitis Further diagnoses and plan as above Probable discharge tomorrow.
[2018-01-20] MEDS: *HR* LORazepam 1 MG TABLET PO SCH (20:23)
[2018-01-20] MEDS: *HR* OxyCODONE/APAP 5/325 TABLET PO PRN (20:25)
[2018-01-21 02:01] LABS: Basophils % 0.2 %; Hematocrit 32.2 % (35.3-44.9); Hemoglobin 10.5 g/dL (11.5-15.4); Immature Granulocytes % 1.4 % (0-4); Lymphocytes # 0.9 K/mcL (0.6-4.6); Lymphocytes % 8.3 %; Mean Corpuscular HGB Conc 32.6 g/dL (31.6-35.5); Mean Corpuscular Hemoglobin 31.1 pg (28.0-33.3); Mean Corpuscular Volume 95.3 fL (83.0-100.0); Mean Platelet Volume 9.9 fL (9.4-12.4); Monocytes # 0.1 K/mcL (0.0-1.3); Neutrophils # 9.8 K/mcL (1.6-8.9); Platelet Count 221 K/mcL (140-400); Red Blood Count 3.38 M/mcL (3.82-4.97); Red Cell Distribution Width 13.8 % (11.5-14.5); Segmented Neutrophils % 89.1 %
[2018-01-21 02:24] LABS: Calcium 8.9 mg/dL (8.6-10.3); Potassium 4.4 mEq/L (3.5-5.1)
[2018-01-21] MEDS: Ipratropium/Albuterol Neb 3 ML IH SCH ×3 (03:51→10:01)
[2018-01-21] MEDS: MethylPREDNISolone 40 MG/ML VIAL IVP SCH (06:01)
[2018-01-21] MEDS: *HR* Enoxaparin 40 MG/0.4 ML SYRINGE SQ SCH (06:01)
[2018-01-21] MEDS: FLUoxetine 20 MG CAPSULE PO SCH (08:02)
[2018-01-21] MEDS: Cholecalciferol (D-3) 1,000 UNIT TABLET PO SCH (08:03)
[2018-01-21] MEDS: Magnesium Oxide 400 MG TABLET PO SCH (08:03)
[2018-01-21] MEDS: Aspirin Enteric Coated 81 MG Tablet PO SCH (08:03)
[2018-01-21] MEDS: amLODIPine 5 MG TABLET PO SCH (08:03)
[2018-01-21] MEDS: Folic Acid 1 MG TABLET PO SCH (08:03)
[2018-01-21] MEDS: Fluticasone Propionate Nasal 50 MCG/SPRAY BOTTLE NS SCH (08:04)
[2018-01-21] MEDS: Insulin LISPRO 300 UNITS/3 ML VIAL SQ SCH (08:04)
--- NOTE | 2018-01-21 10:01 | Discharge Summary ---
<Moe Jacques - Last Filed: 01/21/18 10:32> - NOTES TO OUTPATIENT PROVIDER Notes to Outpatient Provider: Admitted for COPD exacerbation with acute bronchitis, no home O2 needs. Patient to finish levaquin and prednisone as outpatient. Date of Encounter: 01/21/18 Time of Encounter: 08:50 - Discharge Diagnosis (1) COPD exacerbation Priority: Primary Status: Acute (2) Acute bronchitis Priority: Secondary Status: Acute Qualifiers: Bronchitis organism: other organism Qualified Code(s): J20.8 - Acute bronchitis due to other specified organisms (3) SIRS (systemic inflammatory response syndrome) Priority: Secondary Status: Acute (4) Acute respiratory distress Priority: Secondary Status: Acute (5) DM2 (diabetes mellitus, type 2) Priority: Secondary Status: Acute Qualifiers: Diabetes mellitus complication status: without complication Diabetes mellitus intermediate insulin use: without intermodal customer service use Qualified Code(s): E11.9 - Type 2 diabetes mellitus without complications (6) Essential hypertension Priority: Secondary Status: Chronic (7) DVT prophylaxis Priority: Secondary Status: Acute Hospital course: Ms. Burch is a 87 year old female with known past medical history of hypertension, CAD, diabetes type II, GERD, hyperlipidemia and COPD, not on home oxyge. Admitted for SIRs/Acute bronchitis with AECOPD. Patient was having progressively worsening cough as well as shortness of breath, URI symptoms for one week. PCP started patient on azithromycin and had given patient a steroid injection that helped for 1 days before patient felt worse. Inpatient Ms. Burch was started on Levaquin Q48H due to CrCl. Supplemental oxygen provided, however when patient evaluated for home O2, saturation did not drop below 95% on RA. Patient also started on IV steroids, guafenesin, and scheduled duonebs; noted continued improvement throughout stay. Patient refused respiratory viral panel as she was clinically improving, wanting to defer exra cost. Patient's vitals remained stable, over than initial elevated temperature. Labs improving, WBC 19.1->11.1. Patinet and family feel comfortable transitioning patient to complete antibiotic course at home. Plan for discharge today. Discharge discussed with: patient, family, nurse - Time Spent with Patient Total time spent providing and/or coordinating discharge services: Greater than 30 minutes (40mins) - Discharge Medications Prescriptions: GuaiFENesin ER [Mucinex] 1,200 mg PO BID #8 tab Ipratropium/Albuterol Neb [Duoneb] 3 ml IH Q6H PRN 30 Days inhsol PRN Reason: Shortness Of Breath levoFLOXacin [Levaquin] 750 mg PO Q48H #2 tablet predniSONE [PredniSONE] See Taper PO DAILY #30 tablet Home Medications: Amitriptyline [Elavil] 10 mg PO HS 09/02/15 [History] Amlodipine [Amlodipine Besylate] 10 mg PO DAILY 09/02/15 [History] Metformin [Glucophage] 1,000 mg PO BID 09/02/15 [History] Atorvastatin Calcium [Lipitor] 20 mg PO HS 04/28/16 [History] Cholecalciferol (Vitamin D3) [Vitamin D3] 1,000 unit PO DAILY 04/28/16 [History] FLUoxetine HCl [Prozac] 20 mg PO DAILY 04/28/16 [History] Docusate [Colace] 100 mg PO BID #60 capsule 04/30/16 [Rx] Fluticasone Propionate Nasal [Flonase] 50 mcg NS BID 06/15/16 [History] Nitroglycerin [Nitrostat] 0.4 mg SL AD PRN 06/15/16 [History] Ferrous Sulfate 325 mg PO TIDWM #90 tablet 06/17/16 [Rx] Folic Acid 5 mg PO DAILY #30 tablet 06/17/16 [Rx] LORazepam [Ativan] 1 mg PO HS #30 tablet 06/17/16 [Rx] Magnesium Oxide [Mag-Ox] 400 mg PO DAILY #14 tablet 06/17/16 [Rx] Allopurinol [Zyloprim] 300 mg PO DAILY 11/23/17 [History] Fluticasone/Vilanterol [Breo Ellipta 100-25 Mcg INH] 1 puff IH DAILY 11/23/17 [ History] Furosemide [Lasix] 20 mg PO DAILY 11/23/17 [History] Omeprazole [PriLOSEC] 20 mg PO DAILY 11/23/17 [History] Oxybutynin Chloride [Ditropan Xl] 10 mg PO DAILY 11/23/17 [History] Oxycodone HCl/Acetaminophen [Percocet 5-325 mg Tablet] 1 each PO Q8H #15 tablet 12/31/17 [Rx] Albuterol Neb [Proventil Neb] 2.5 mg IH QID PRN 01/18/18 [History] Albuterol Sulfate [Ventolin Hfa] 2 puff IH Q4H 01/18/18 [History] Aspirin [Lo-Dose Aspirin EC] 81 mg PO DAILY 01/18/18 [History] Glimepiride [Amaryl] 4 mg PO QAM 01/18/18 [History] Meloxicam [Mobic] 15 mg PO DAILY 01/18/18 [History] Sitagliptin Phosphate [Januvia] 50 mg PO DAILY 01/18/18 [History] Vit A/Vit C/Vit E/Zinc/Copper [Preservision Areds Tablet] 1 tab PO DAILY [History] GuaiFENesin ER [Mucinex] 1,200 mg PO BID #8 tab 01/21/18 [Rx] Ipratropium/Albuterol Neb [Duoneb] 3 ml IH Q6H PRN 30 Days inhsol 01/21/18 [Rx] levoFLOXacin [Levaquin] 750 mg PO Q48H #2 tablet 01/21/18 [Rx] predniSONE [PredniSONE] See Taper PO DAILY #30 tablet 01/21/18 [Rx] Allergies/Adverse Reactions: 3 Allergy/AdvReac Type Severity Reaction Status Date / Time No Known Allergies Allergy Verified 01/03/17 07:17 Date of admission: 01/18/18 12:11 Primary care physician: Sapna Ruiz, Discharging clinician: Haider Leblanc Anticipated date of discharge: 01/21/18 - Constitutional Vitals: Temp Pulse Resp BP Pulse Ox 97.4 F L 65 16 169/70 98 01/21/18 07:07 01/21/18 07:07 01/21/18 07:49 01/21/18 07:07 01/21/18 09:40 General appearance: Present: cooperative, A&O X 3, no acute distress, answers questions appropriately - Head Head exam: Present: atraumatic, normocephalic - Eye Eye exam: Present: EOMI, conjuntiva pink, sclera anicteric - Neck Neck exam general surgery: Present: full ROM, supple, trachea midline - Respiratory Respiratory exam: Present: wheezes. Absent: accessory muscle use, rales, rhonchi Additional comments: Much improved from yesterday's exam. - Cardiovascular Cardiovascular exam: Present: RRR, +S1, +S2, systolic murmur (unchanged grade 3 systolic murmur.). Absent: diastolic murmur, gallop, rubs - GI/Abdominal GI/Abdominal exam: Present: normal bowel sounds, soft, no peritoneal signs. Absent: distended, tenderness - Extremities Exam Extremities exam: Absent: calf tenderness, cyanotic, pedal edema - Neurological Exam Neurological exam: Present: alert, oriented X3, no focal deficits. Absent: facial droop, speech deficit - Skin Skin exam: Present: dry, intact - Patient Status Disposition: Home, Self-Care Condition: Good Overall status at discharge: patient is progressing back to baseline - Discharge Instructions Instructions: Chronic Obstructive Pulmonary Disease (DC) Follow Up With: Sapna Ruiz MD [Primary Care Provider] - Additional Instructions: Follow up with your primary care provider in the next 5-7 days or sooner if needed. Return or seek medical care if new or worsening symptoms such as chest pain, shortness of breath, fever, lightheadedness. -Please complete you antibiotic, Levaquin. With your current kidney function your antibiotic is taken every other day. You received a dose yesterday, you will take next pill on Tuesday01/22/18 and then 1 pill on 01/24/18. -Please also complete you steroid taper over the next 12 days. -Rx also written for Mucinex and Duonebs as supportive therapy as you improve you should no longer need these. - Diet and Activity Activity: ambulate only with your walker, as per physical therapy, increase activity as tolerated Diet: advance to your usual diet <Haider Leblanc - Last Filed: 01/21/18 16:41> Date of Encounter: 01/21/18 - Discharge Diagnosis (1) COPD exacerbation Status: Acute (2) Acute bronchitis Status: Acute Qualifiers: Bronchitis organism: other organism Qualified Code(s): J20.8 - Acute bronchitis due to other specified organisms (3) DM2 (diabetes mellitus, type 2) Status: Acute Qualifiers: Diabetes mellitus complication status: without complication Diabetes mellitus intermediate insulin use: without intermodal customer service use Qualified Code(s): E11.9 - Type 2 diabetes mellitus without complications (4) Essential hypertension Status: Chronic (5) Sepsis Priority: Primary Status: Resolved Qualifiers: Sepsis type: sepsis due to unspecified organism Qualified Code(s): A41.9 - Sepsis, unspecified organism Hospital course: Ms. Burch is a 87 year old female - Time Spent with Patient Total time spent providing and/or coordinating discharge services: 38min Date of admission: 01/18/18 12:11 Primary care physician: Sapna Ruiz, - Constitutional Vitals: Temp Pulse Resp BP Pulse Ox 97.5 F L 74 16 143/76 95 01/21/18 11:30 01/21/18 11:30 01/21/18 11:30 01/21/18 11:30 01/21/18 11:30 - Attending Attestation I examined this patient and my medical decision-making was reviewed with the Resident Physician on 01/21/18. I agree with the documented findings, disposition and treatment plan as described except to the extent set forth below. Ms Burch has been admitted for acute exac COPD and bronchitis. She has steadily improved and currently is approaching baseline. She is still wheezing but daughter feels she is nearly at baseline. She is afebrile and ready for discharge home. Exam alert Comfortable Heart reg and distant Lungs with diffuse wheeze - improved from yesterday Abd soft Plan D/C home today Follow up with PCP
--- NOTE | 2018-01-21 11:14 | Physician Discharge Referral ---
Home Health/Hosp Referral Info Transfer to: Home Health Provider in Charge Post Discharge: PCP - Diagnosis (1) COPD exacerbation Priority: Primary Status: Acute (2) Acute bronchitis Priority: Secondary Status: Acute (3) SIRS (systemic inflammatory response syndrome) Priority: Secondary Status: Acute (4) Acute respiratory distress Priority: Secondary Status: Acute (5) DM2 (diabetes mellitus, type 2) Priority: Secondary Status: Acute (6) Essential hypertension Priority: Secondary Status: Chronic (7) DVT prophylaxis Priority: Secondary Status: Acute - Respiratory Orders None Smoking Cessation: Smoking cessation has been advised. For more information, call the [place] Tobacco Quit Line at 6-514-ZQVM-NOW. - Diet/Nutrition Diet/Nutrition Orders: Cardiac - Activity Activity Orders: Walker - Services Needed Following services are medically necessary services: Physical Therapy ( Continued PT) - Transfer Medications Prescriptions: GuaiFENesin ER [Mucinex] 1,200 mg PO BID #8 tab Ipratropium/Albuterol Neb [Duoneb] 3 ml IH Q6H PRN 30 Days inhsol PRN Reason: Shortness Of Breath levoFLOXacin [Levaquin] 750 mg PO Q48H #2 tablet predniSONE [PredniSONE] See Taper PO DAILY #30 tablet Home Medications: Amitriptyline [Elavil] 10 mg PO HS 09/02/15 [History] Amlodipine [Amlodipine Besylate] 10 mg PO DAILY 09/02/15 [History] Metformin [Glucophage] 1,000 mg PO BID 09/02/15 [History] Atorvastatin Calcium [Lipitor] 20 mg PO HS 04/28/16 [History] Cholecalciferol (Vitamin D3) [Vitamin D3] 1,000 unit PO DAILY 04/28/16 [History] FLUoxetine HCl [Prozac] 20 mg PO DAILY 04/28/16 [History] Docusate [Colace] 100 mg PO BID #60 capsule 04/30/16 [Rx] Fluticasone Propionate Nasal [Flonase] 50 mcg NS BID 06/15/16 [History] Nitroglycerin [Nitrostat] 0.4 mg SL AD PRN 06/15/16 [History] Ferrous Sulfate 325 mg PO TIDWM #90 tablet 06/17/16 [Rx] Folic Acid 5 mg PO DAILY #30 tablet 06/17/16 [Rx] LORazepam [Ativan] 1 mg PO HS #30 tablet 06/17/16 [Rx] Magnesium Oxide [Mag-Ox] 400 mg PO DAILY #14 tablet 06/17/16 [Rx] Allopurinol [Zyloprim] 300 mg PO DAILY 11/23/17 [History] Fluticasone/Vilanterol [Breo Ellipta 100-25 Mcg INH] 1 puff IH DAILY 11/23/17 [ History] Furosemide [Lasix] 20 mg PO DAILY 11/23/17 [History] Omeprazole [PriLOSEC] 20 mg PO DAILY 11/23/17 [History] Oxybutynin Chloride [Ditropan Xl] 10 mg PO DAILY 11/23/17 [History] Oxycodone HCl/Acetaminophen [Percocet 5-325 mg Tablet] 1 each PO Q8H #15 tablet 11/27/17 [Rx] Albuterol Neb [Proventil Neb] 2.5 mg IH QID PRN 01/18/18 [History] Albuterol Sulfate [Ventolin Hfa] 2 puff IH Q4H 01/18/18 [History] Aspirin [Lo-Dose Aspirin EC] 81 mg PO DAILY 01/18/18 [History] Glimepiride [Amaryl] 4 mg PO QAM 01/18/18 [History] Meloxicam [Mobic] 15 mg PO DAILY 01/18/18 [History] Sitagliptin Phosphate [Januvia] 50 mg PO DAILY 01/18/18 [History] Vit A/Vit C/Vit E/Zinc/Copper [Preservision Areds Tablet] 1 tab PO DAILY [History] GuaiFENesin ER [Mucinex] 1,200 mg PO BID #8 tab 01/21/18 [Rx] Ipratropium/Albuterol Neb [Duoneb] 3 ml IH Q6H PRN 30 Days inhsol 01/21/18 [Rx] levoFLOXacin [Levaquin] 750 mg PO Q48H #2 tablet 01/21/18 [Rx] predniSONE [PredniSONE] See Taper PO DAILY #30 tablet 01/21/18 [Rx] Allergies/Adverse Reactions: 3 Allergy/AdvReac Type Severity Reaction Status Date / Time No Known Allergies Allergy Verified 01/03/17 07:17 Certification: Further, I certify that my clinical findings support that this patient is homebound (i.e. absences from home require considerable and taxing effort and are for medical reasons or rastafari services or infrequently or short duration when for other reasons) because: Homebound Reason: Patient requires assistance of a person or device to safely leave home, Leaving home requires considerable and taxing effort due to condition, Severity of cardiac or pulmonary status limits activity tolerance Attestation: My signature below is to certify that this patient is under my care and that I, or nurse practitioner, or a physician's diploma medical assistant working with me, has a face-to -face encounter with this patient.
[2018-01-21 11:32] VITALS: BP 143/76
== END 2018-01-21 12:00 | disposition home or self-care (01) | DRG 872 ==
LOC: EMEROO 08:47 → SUATTDRO 12:11 → 3NENU 12:11
PROVIDERS: ADMIT Family Medicine; ATTEND Internal Medicine

== ENCOUNTER 2018-05-02 22:45 | Inpatient (IN) ==
[2018-05-03] MEDS ORDERED: *HR* FentaNYL (PF) 100 MCG/2 ML VIAL IVP ONE ×2 (02:45→10:27)
[2018-05-03] MEDS ORDERED: Naloxone 0.4 MG/ML INJ IVP PRN ×3 (03:16→22:49)
--- NOTE | 2018-05-03 03:16 | Internal Med History&Physical ---
Date of Encounter: 05/03/18 Time of Encounter: 03:08 Internal Medicine - H&P: HPI Chief complaint: hip fracture Admitted From: Direct Admit Plans for Post Hospital Care: Home History of present illness: Ms. Burch is a 87 year old female with known past medical history of hypertension, CAD, diabetes type II, GERD, hyperlipidemia, bioprosthetic aortic valve, gout, depression, and COPD, not on home oxygen who is transferred from [facility] after a mechanical fall slipping outside on the rain. She was not using her cane. Imaging report sent from [facility] with the following: left superior and anterior acetabulum fracture and a left pubic ramus fracture. Also has a comminuted fracture of the right femoral neck. She has a left hip prosthesis. The patient however, has pain on the right and is unable to move her right lower extremity. It is externally rotated. She has full ROM on the left. This was reported on a CT pelvis. Ortho were contacted from [facility] and will see the patient here. She was in significant pain there 09/06 and BP was elevated 184/ 102. This came down with 150 mcg total of IV fentanyl. Labs there showed WBC 19.8. Patient denies fevers. Hgb 10.4, Plt 215, K 3.9, Na 138, BUN 29, creatinine .88, normal LFTs, INR 1.14, negative UA. Denies fever, chills, nausea , vomiting, chest pain, shortness of breath, abdominal pain, diarrhea, constipation, urinary symptoms, or neurological symptoms. She is still in significant pain upon arrival. Vitals are stable here with BP 136/77. Past Med Surg Social Fam HX - Past Medical History Medical history: coronary artery disease, diabetes, GERD, hyperlipidemia, hypertension, osteoporosis, renal disease, TIA, valvular heart disease Additional medical history: nocturia, broken L hip, renal artery stenosis, aortic stenosis, nocturia Psychiatric history: depression - Past Surgical History Surgical History: hysterectomy, orthopedic, other, other Additional surgical history: bladder,left renal stent,left groin abcess, colonoscopy - Social History Smoking Status: Never smoker Smokeless Tobacco Status: No Alcohol use: none Drug use: none - Family History Mother Living Status: Hx Family GI Disorders: Yes Internal Medicine - H&P: Meds Amitriptyline [Elavil] 10 mg PO HS 09/02/15 [History] Amlodipine [Amlodipine Besylate] 10 mg PO DAILY 09/02/15 [History] Metformin [Glucophage] 1,000 mg PO BID 09/02/15 [History] Atorvastatin Calcium [Lipitor] 20 mg PO HS 04/28/16 [History] Cholecalciferol (Vitamin D3) [Vitamin D3] 1,000 unit PO DAILY 04/28/16 [History] FLUoxetine HCl [Prozac] 20 mg PO DAILY 04/28/16 [History] Nitroglycerin [Nitrostat] 0.4 mg SL AD PRN 06/15/16 [History] Ferrous Sulfate 325 mg PO TIDWM #90 tablet 06/17/16 [Rx] Folic Acid 5 mg PO DAILY #30 tablet 06/17/16 [Rx] Magnesium Oxide [Mag-Ox] 400 mg PO DAILY #14 tablet 06/17/16 [Rx] Allopurinol [Zyloprim] 300 mg PO DAILY 11/23/17 [History] Furosemide [Lasix] 20 mg PO DAILY 11/23/17 [History] Omeprazole [PriLOSEC] 20 mg PO DAILY 11/23/17 [History] Oxybutynin Chloride [Ditropan Xl] 5 mg PO BID 11/23/17 [History] Oxycodone HCl/Acetaminophen [Percocet 5-325 mg Tablet] 1 each PO Q8H #15 tablet 11/27/17 [Rx] Albuterol Neb [Proventil Neb] 2.5 mg IH QID PRN 01/18/18 [History] Albuterol Sulfate [Ventolin Hfa] 2 puff IH Q4H 01/18/18 [History] Aspirin [Lo-Dose Aspirin EC] 81 mg PO DAILY 01/18/18 [History] Ipratropium/Albuterol Neb [Duoneb] 3 ml IH Q6H PRN 30 Days inhsol 01/21/18 [Rx] 3 Allergy/AdvReac Type Severity Reaction Status Date / Time No Known Allergies Allergy Verified 01/03/17 07:17 All Systems PM: A 10-system review of systems was performed and is negative for pertinent findings except as documented above in the HPI. Review of systems: All systems reviewed are negative except for as mentioned above - Constitutional Vitals: Temp Pulse Resp BP Pulse Ox 98.4 F 88 18 136/77 99 05/03/18 00:30 05/03/18 00:30 05/03/18 00:30 05/03/18 00:30 05/03/18 00:30 Exam: GEN: NAD HEENT: AT, NC, No cyanosis, oral mucosa is moist, No JVD Lymphatics: No lymphadenoapthy Eyes: Extrocular muscles intact, anicteric CVS:RRR. S1, S2, systolic murmur heard throughout the precordium RESP: CTAB ABD: Soft, NT, ND, +BS EXT: No edema, No rashes, 2+ DP, right lower extremity externally rotated with normal range of motion noted. Left lower extremity with complete range of motion. NEURO: Nonfocal, CN II-XII intact, no sensory deficits Psych: Cooperative, Not anxious or depressed - Assessment and plan (1) Hip fracture Current Visit: Yes Status: Acute Assessment and plan: Imaging report sent from [facility] with the following: left superior and anterior acetabulum fracture and a left pubic ramus fracture. Also has a comminuted fracture of the right femoral neck. She has a left hip prosthesis. This is inconsistent with her exam. The patient right LE is externally rotated, not the left. She has full range of motion on the left but is not able to move her right. Will repeat xrays of both hips. c/s ortho. pain control. NPO. EKG for pre-op purposes. Hold ASA/plavix. Qualifiers: Encounter type: initial encounter Fracture type: closed Laterality: left Qualified Code(s): S72.002A - Fracture of unspecified part of neck of left femur, initial encounter for closed fracture (2) Leukocytosis Current Visit: No Status: Acute Assessment and plan: Likely reactive. No signs of an infection. Will monitor. Repeat UA. Qualifiers: Leukocytosis type: unspecified Qualified Code(s): D72.829 - Elevated white blood cell count, unspecified (3) CAD (coronary artery disease) Current Visit: Yes Status: Acute Assessment and plan: c/w cardiac meds but hold ASA/plavix for above. Qualifiers: Coronary Disease-Associated Artery/Lesion type: [place] artery [place] vs. transplanted heart: [place] heart Associated angina: without angina Qualified Code(s): I25.10 - Atherosclerotic heart disease of [place] coronary artery without angina pectoris (4) History of gout Current Visit: No Status: Acute Assessment and plan: c/w home meds (5) COPD (chronic obstructive pulmonary disease) Current Visit: No Status: Chronic Assessment and plan: Not in exacerbation. c/w home inhalers. Qualifiers: COPD type: chronic bronchitis Chronic bronchitis type: unspecified Qualified Code(s): J42 - Unspecified chronic bronchitis (6) Diabetes Current Visit: No Status: Chronic Assessment and plan: Will place on SSI and accucheks Qualifiers: Diabetes mellitus type: type 2 Diabetes mellitus mcfp insulin use: without mcfp use Diabetes mellitus complication status: without complication Qualified Code(s): E11.9 - Type 2 diabetes mellitus without complications (7) Essential hypertension Current Visit: No Status: Chronic Assessment and plan: Resume home antihypertensives. (8) DVT prophylaxis Current Visit: No Status: Acute Assessment and plan: heparin SQ - Time Spent With Patient Total time spent is greater than 50% in coordination of care (as documented) at patient's floor/unit and/or counseling patient:
[2018-05-03] MEDS ORDERED: Acetaminophen 325 MG TABLET PO PRN (03:17)
[2018-05-03] MEDS ORDERED: *HR* Dextrose 50 % in Water (Syg) 50 ML SYRINGE IVP PRN (03:18)
[2018-05-03] MEDS ORDERED: Dextrose Gel 15 GM/37.5 ML TUBE PO PRN ×2 (03:18)
[2018-05-03] MEDS ORDERED: D5% in Water 1,000 ML IVC PRN (03:18)
[2018-05-03] MEDS ORDERED: *HR* HYDROcodone/Acet 5/325 mg TABLET PO PRN (04:00)
[2018-05-03] MEDS: *HR* Heparin 5,000 UNIT/ML VIAL SQ SCH ×3 (05:29→17:09)
[2018-05-03] MEDS: Insulin LISPRO 300 UNITS/3 ML VIAL SQ SCH ×4 (05:45→23:38)
[2018-05-03 07:26] LABS: Basophils % 0.2 %; Hematocrit 23.4 % (35.3-44.9); Hemoglobin 7.8 g/dL (11.5-15.4); Immature Granulocytes % 0.6 % (0-4); Mean Corpuscular HGB Conc 33.3 g/dL (31.6-35.5); Mean Corpuscular Hemoglobin 32.9 pg (28.0-33.3); Mean Corpuscular Volume 98.7 fL (83.0-100.0); Mean Platelet Volume 10.2 fL (9.4-12.4); Monocytes # 0.6 K/mcL (0.0-1.3); Monocytes % 5.3 %; Platelet Count 203 K/mcL (140-400); Red Blood Count 2.37 M/mcL (3.82-4.97); Red Cell Distribution Width 12.1 % (11.5-14.5); Segmented Neutrophils % 84.9 %
[2018-05-03 07:30] LABS: INR 1.2; Prothrombin Time 13.2 Seconds (9.4-12.1)
[2018-05-03 07:47] LABS: BUN/Creatinine Ratio 36 (6-26); Blood Urea Nitrogen 31 mg/dL (8-23); Calcium 9.1 mg/dL (8.6-10.3); Carbon Dioxide 20 mEq/L (23-29); Chloride 107 mEq/L (98-107); Glucose 252 mg/dL (70-105); Magnesium 1.5 mg/dL (1.6-2.6); Osmolality,Calculated 303 (280-300); Potassium 4.2 mEq/L (3.5-5.1); Sodium 139 mEq/L (136-145); eGFR For African Americans > 60 (> 60); eGFR For Non-African Americans > 60 (> 60)
[2018-05-03] MEDS ORDERED: *HR* OxyCODONE/APAP 5/325 TABLET PO PRN (08:19)
[2018-05-03] MEDS: amLODIPine 5 MG TABLET PO SCH (08:37)
[2018-05-03] MEDS: Folic Acid 1 MG TABLET PO SCH (08:37)
[2018-05-03] MEDS: FLUoxetine 20 MG CAPSULE PO SCH (08:37)
[2018-05-03] MEDS: Cholecalciferol (D-3) 1,000 UNIT TABLET PO SCH (08:37)
[2018-05-03] MEDS: Furosemide 20 MG TABLET PO SCH (08:37)
[2018-05-03 09:45] LABS: % Iron Saturation 19 % (15-50); Iron 56 mcg/dL (50-170); Transferrin 206 mg/dL (203-362)
[2018-05-03] MEDS ORDERED: 0.9 % Sodium Chloride 1,000 ML IVC SCH (11:15)
[2018-05-03 13:27] LABS: Folate > 22.3 ng/mL (3.0-16.0); Vitamin B12 441 pg/mL (250-1100)
[2018-05-03 13:46] LABS: Hemoglobin 7.2 g/dL (11.5-15.4)
[2018-05-03 16:35] LABS: Bilirubin,Urine Moderate (Negative); Blood,Urine Negative (Negative); Clarity,Urine Cloudy (Clear); Color,Urine Dark Yellow (Yellow); Glucose,Urine (UA) Normal (Normal); Ketones,Urine Trace mg/dL (Negative); Leukocyte Esterase,Urine Moderate (Negative); Nitrite,Urine Negative (Negative); PH,Urine 5.5 pH Units (5.0-8.0); Protein,Urine 100 mg/dL (Neg-Trace); Urobilinogen,Urine Normal (Normal)
[2018-05-03 16:40] LABS: Bacteria,Urine None Seen per hpf (None-Few); Squamous Epithelial Cell,Urine Many per lpf (None-Few); WBC,Urine 30-50 per hpf (0-3)
[2018-05-03] MEDS: *HR* FentaNYL (PF) 100 MCG/2 ML VIAL IVP PRN (16:48)
--- NOTE | 2018-05-03 17:03 | Orthopedic Consult Note ---
Date of Encounter: 05/03/18 Time of Encounter: 13:30 Assessment and Plan (1) Hip fracture Current Visit: Yes Status: Acute Xrays show right intertrochanteric femeral neck fracture which will require surgical fixation. Dr. Moore plans to perform this later today. I discussed the procedure as well as r/b/a with the patient and family who all expressed understanding and would like to proceed with surgery. Consent obtained and placed in chart. Of note, she had this same procedure on the left side 2 years ago. Continue NPO until procedure later today. Ice to right hip/knee as needed. Xrays of right knee and ankle show no acute bony abnormalities. Continue conservative treatment, ROM as tolerated. Pain control per hospitalist. Will start therapy tomorrow. Plan as of now will be TTWB but could change based on surgery. Will likely require ECF placement based on PT/OT evaluation. Will follow up with Eusebia Batista PA-C in [facility] office on 05/17/18 at 8:30am. Qualifiers: Encounter type: initial encounter Fracture type: closed Laterality: left Qualified Code(s): S72.002A - Fracture of unspecified part of neck of left femur, initial encounter for closed fracture History of Present Illness Chief complaint: right hip pain HPI: Ms. Burch is a 87 year old female who presents with right hip pain. She admits to slipping and falling last night around 6pm while walking outside in the rain without her cane. She fell on her right side and had immediate pain in right hip , knee and ankle that has been constant aching since that time, sharp with movement, better with rest. Patient states pain is currently tolerable with medication. She denies any numbness or tingling to extremity. She typically ambulates well with a cane but did not have it with her at time of fall. Denies hitting her head or LOC. Denies any fevers, chest pain, SOB. Of note, patient did have left hip IM nailing performed by Dr. Zafar 04/2016. Past Med Surg Social Fam HX - Past Medical History Medical history: coronary artery disease, diabetes, GERD, hyperlipidemia, hypertension, osteoporosis, renal disease, TIA, valvular heart disease Additional medical history: nocturia, broken L hip, renal artery stenosis, aortic stenosis, nocturia Psychiatric history: depression - Past Surgical History Surgical History: hysterectomy, orthopedic, other, other Additional surgical history: bladder,left renal stent,left groin abcess, colonoscopy - Social History Smoking Status: Never smoker Smokeless Tobacco Status: No Alcohol use: none Drug use: none - Family History Mother Living Status: Hx Family GI Disorders: Yes Medications and Allergies Atorvastatin Calcium [Lipitor] 20 mg PO HS 04/28/16 [History] Cholecalciferol (Vitamin D3) [Vitamin D3] 1,000 unit PO DAILY 04/28/16 [History] FLUoxetine HCl [Prozac] 20 mg PO DAILY 04/28/16 [History] Nitroglycerin [Nitrostat] 0.4 mg SL AD PRN 06/15/16 [History] Ferrous Sulfate 325 mg PO TIDWM #90 tablet 06/17/16 [Rx] Folic Acid 5 mg PO DAILY #30 tablet 06/17/16 [Rx] Magnesium Oxide [Mag-Ox] 400 mg PO DAILY #14 tablet 06/17/16 [Rx] Allopurinol [Zyloprim] 300 mg PO DAILY 11/23/17 [History] Furosemide [Lasix] 20 mg PO DAILY 11/23/17 [History] Omeprazole [PriLOSEC] 20 mg PO DAILY 11/23/17 [History] Oxybutynin Chloride [Ditropan Xl] 5 mg PO BID 11/23/17 [History] Albuterol Neb [Proventil Neb] 2.5 mg IH QID PRN 01/18/18 [History] Albuterol Sulfate [Ventolin Hfa] 2 puff IH Q4H 01/18/18 [History] Aspirin [Lo-Dose Aspirin EC] 81 mg PO DAILY 01/18/18 [History] Ipratropium/Albuterol Neb [Duoneb] 3 ml IH Q6H PRN 30 Days inhsol 01/21/18 [Rx] Amitriptyline [Elavil] 10 mg PO HS 05/03/18 [History] Amlodipine Besylate 10 mg PO DAILY 05/03/18 [History] Metformin HCl [Glucophage] 1,000 mg PO BID 05/03/18 [History] Oxybutynin Chloride [Ditropan Xl] 10 mg PO DAILY 05/03/18 [History] Oxycodone HCl/Acetaminophen [Percocet 5-325 mg Tablet] 1 tab PO Q6H PRN [History] 3 Allergy/AdvReac Type Severity Reaction Status Date / Time No Known Allergies Allergy Verified 01/03/17 07:17 All Systems Reviewed: The remainder of the systems were reviewed and are negative - Constitutional Constitutional: as per HPI - Cardiovascular Cardiovascular: as per HPI - Respiratory Respiratory: as per HPI - Musculoskeletal Musculoskeletal: as per HPI Physical Exam - Constitutional Vitals: Temp Pulse Resp BP Pulse Ox 98.6 F 96 16 114/68 95 05/03/18 15:28 05/03/18 15:28 05/03/18 15:57 05/03/18 15:28 05/03/18 15:57 - Hip right Tenderness with palpation: anterior (No erythema, ecchymosis or open lesions noted to right leg. RLE is shortened and externally rotated. Moderate tenderness to palpation to anterior and lateral right hip. Mild tenderness to palpation of right knee with mild swelling. Minimal swelling or tenderness to right ankle. good dorsiflexion of foot, ROM of hip and knee restricted secondary to known fracture. grossly NV intact. ) Results - Labs Result Diagrams: 05/03/18 12:22 05/03/18 06:28 Labs: Abnormal lab results RBC 2.37 M/mcL (3.82-4.97) L 05/03/18 06:28 Hgb 7.2 g/dL (11.5-15.4) L 05/03/18 12:22 Hct 22.0 % (35.3-44.9) L 05/03/18 12:22 Neutrophils # 9.0 K/mcL (1.6-8.9) H 05/03/18 06:28 PT 13.2 Seconds (9.4-12.1) H 05/03/18 06:28 Carbon Dioxide 20 mEq/L (23-29) L 05/03/18 06:28 BUN 31 mg/dL (8-23) H 05/03/18 06:28 BUN/Creatinine Ratio 36 (6-26) H 05/03/18 06:28 Glucose 252 mg/dL (70-105) H 05/03/18 06:28 POC Glucose 222 mg/dL (70-99) H 05/03/18 12:01 Calculated Osmolality 303 (280-300) H 05/03/18 06:28 Magnesium 1.5 mg/dL (1.6-2.6) L 05/03/18 06:28 Folate > 22.3 ng/mL (3.0-16.0) H 05/03/18 12:22 Urine Clarity Cloudy (Clear) A 05/03/18 15:50 Ur Specific [place] 1.030 (1.010-1.025) H 05/03/18 15:50 Urine Protein 100 mg/dL (Neg-Trace) H 05/03/18 15:50 Urine Ketones Trace mg/dL (Negative) H 05/03/18 15:50 Urine Bilirubin Moderate (Negative) H 05/03/18 15:50 Ur Leukocyte Esterase Moderate (Negative) H 05/03/18 15:50 Urine Microscopic RBC 3-5 per hpf (0-3) H 05/03/18 15:50 Urine Microscopic WBC 30-50 per hpf (0-3) H 05/03/18 15:50 Ur Squamous Epith Cells Many per lpf (None-Few) H 05/03/18 15:50 Ur Culture Indicated? NO. (NO) A 05/03/18 15:50 H & H 05/03/18 05/03/18 Range/Units 06:28 12:22 Hgb 7.8 L 7.2 L (11.5-15.4) g/dL Hct 23.4 L 22.0 L (35.3-44.9) % All other labs normal. - Diagnostic results Hip x-ray: report reviewed, image reviewed Knee x-ray: report reviewed, image reviewed Ankle/Foot x-ray: report reviewed, image reviewed Consult Discharge Plan - Plan Referrals: Sapna Ruiz MD [Primary Care Provider] - - Attending Attestation Case and plan of care discussed with supervising physician who was available for all aspects of care.
[2018-05-03] MEDS ORDERED: *HR* FentaNYL (PF) 100 MCG/2 ML VIAL ONE ×2 (17:39→19:51)
[2018-05-03] MEDS ORDERED: *HR* Propofol 200 MG/20 ML VIAL IVP ONE (17:39)
[2018-05-03] MEDS ORDERED: *HR* Rocuronium Bromide 50 MG/5 ML VIAL ONE (17:40)
[2018-05-03] MEDS ORDERED: Lidocaine -MPF 2% 2 ML VIAL ONE (17:40)
[2018-05-03] MEDS ORDERED: *HR* Succinylcholine 200 MG/10 ML VIAL IVP ONE (17:40)
--- NOTE | 2018-05-03 17:54 | Anesthesia Evaluation PreOp ---
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 PULLER History: TIA Other Medical History: Renal (CKD), Diabetes Type II, GERD Anesthesia History: No Prior Anesthetic Complications, Past Anesthesia Alcohol Use: none Drug use: none Medications and Allergies Atorvastatin Calcium [Lipitor] 20 mg PO HS 04/28/16 [History] Cholecalciferol (Vitamin D3) [Vitamin D3] 1,000 unit PO DAILY 04/28/16 [History] FLUoxetine HCl [Prozac] 20 mg PO DAILY 04/28/16 [History] Nitroglycerin [Nitrostat] 0.4 mg SL AD PRN 06/15/16 [History] Ferrous Sulfate 325 mg PO TIDWM #90 tablet 06/17/16 [Rx] Folic Acid 5 mg PO DAILY #30 tablet 06/17/16 [Rx] Magnesium Oxide [Mag-Ox] 400 mg PO DAILY #14 tablet 06/17/16 [Rx] Allopurinol [Zyloprim] 300 mg PO DAILY 11/23/17 [History] Furosemide [Lasix] 20 mg PO DAILY 11/23/17 [History] Omeprazole [PriLOSEC] 20 mg PO DAILY 11/23/17 [History] Oxybutynin Chloride [Ditropan Xl] 5 mg PO BID 11/23/17 [History] Albuterol Neb [Proventil Neb] 2.5 mg IH QID PRN 01/18/18 [History] Albuterol Sulfate [Ventolin Hfa] 2 puff IH Q4H 01/18/18 [History] Aspirin [Lo-Dose Aspirin EC] 81 mg PO DAILY 01/18/18 [History] Ipratropium/Albuterol Neb [Duoneb] 3 ml IH Q6H PRN 30 Days inhsol 01/21/18 [Rx] Amitriptyline [Elavil] 10 mg PO HS 05/03/18 [History] Amlodipine Besylate 10 mg PO DAILY 05/03/18 [History] Metformin HCl [Glucophage] 1,000 mg PO BID 05/03/18 [History] Oxybutynin Chloride [Ditropan Xl] 10 mg PO DAILY 05/03/18 [History] Oxycodone HCl/Acetaminophen [Percocet 5-325 mg Tablet] 1 tab PO Q6H PRN [History] 3 Allergy/AdvReac Type Severity Reaction Status Date / Time No Known Allergies Allergy Verified 01/03/17 07:17 - Meds/Allergy Pre-op Review Medications Reviewed: Yes Allergies Reviewed: Yes Beta Blockers on Current Med List: No Anesthesia Results - Labs 05/03/18 12:22 05/03/18 06:28 - Imaging EKG: report reviewed (01/18/2018 [employer]IFACT LIMITS INTERPRETATION OF UNDERLYING RHYTHM LEFT AXIS DEVIATION POSSIBLE RIGHT VENTRICULAR CONDUCTION DELAY MINIMAL VOLTAGE CRITERIA FOR LVH, CONSIDER NORMAL VARIANT POSSIBLE SEPTAL MYOCARDIAL INFARCTION, PROBABLY OLD 07/20/2016 SR, 1st degree AV block) Additional studies: 02/26/2014 Echo Impressions: LVEF 60-65%. Mild concentric LVH. Mild left ventricular diastolic dysfunction. Normal right ventricular structure and function. Bioprosthetic aortic valve by history, which was not well visualized. AV function appears to be acceptable by Doppler. No significant aortic stenosis. Mean gradient 11 mmHg. Trace aortic regurgitation. No evidence of pulmonary hypertension. Anesthesia Exam Vital Signs/O2 Sat/Glucose, Most Recent Temp Pulse Resp BP Pulse Ox 98.6 F 96 16 114/68 95 05/03/18 15:28 05/03/18 15:28 05/03/18 15:57 05/03/18 15:28 05/03/18 15:57 Blood Glucose* 222 Height: 5'3''/1.6m Weight: 141 lbs/64.4 kg NPO (# of Hours): 8 Pain Scale: 8 (right hip) Pain Scale Used: Numeric (1 - 10) - HEENT Pupil (Motor): EOMI Mallampati: II Teeth: Edentulous Oral Opening: Greater than 3 - BRISKET PULLER LOC: Oriented BRISKET PULLER Motor: Normal RUE, Normal LUE, Normal RLE, Normal LLE, Normal Face BRISKET PULLER Sensory: Normal: RUE, LUE, Face, Deficit: RLE, LLE - Cardiac Rhythm: Regular Murmur: Systolic - Pulmonary Breath Sounds: bilateral Clear Respiratory Effort: Symmetrical Anesthesia Assess/Plan ASA Score: 4 Modified [place] Scale for Level of Consciousness: Cooperative, oriented, and tranquil Anesthetic Plan: General Monitoring Plan: Standard Monitors Recovery Plan: PACU
--- NOTE | 2018-05-03 18:15 | Electrocardiograph Report ---
[place] [id number] Test Date: 2018-05-03 Pat Name: Neisha Burch Department: 104 Room: 3B39 Gender: F Service Administrator: ESTEVAN : [id number] Requested By: Shweta Torrez Order Number: [id number] Reading MD: Jase Liriano Measurements Intervals [place] Rate: 90 P: 0 MD: 180 QRS: -23 QRSD: 83 T: 53 QT: 381 QTc: 429 Interpretive Statements SINUS RHYTHM Electronically Signed On 05-03-2018 18:14:11 EDT by Jase Liriano
[2018-05-03] MEDS ORDERED: EPHEDrine 50 MG/ML VIAL ONE (18:19)
[2018-05-03] MEDS ORDERED: *HR* Phenylephrine 10 MG/ML VIAL ONE (18:21)
[2018-05-03] MEDS ORDERED: *HR* Etomidate 40 MG/20 ML VIAL IVP ONE (18:22)
[2018-05-03] MEDS ORDERED: Acetaminophen IV 1,000 MG/100 ML INFUS..BTL ONE (18:53)
[2018-05-03] MEDS ORDERED: Ondansetron 4 MG/2 ML VIAL ONE (18:55)
[2018-05-03] MEDS ORDERED: Dexamethasone 4 MG/ML VIAL ONE (18:55)
--- NOTE | 2018-05-03 20:12 | Internal Med Progress Note ---
Date of Encounter: 05/03/18 Time of Encounter: 09:50 - Assessment and plan (1) History of gout Current Visit: Yes Status: Chronic Assessment and plan: Chronic. Continue home medications. (2) Diabetes Current Visit: Yes Status: Chronic Assessment and plan: Chronic. 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 Lungs clear and diminished with poor inspiratory effort due to pain. Continue home inhalers, nebulizers when necessary Qualifiers: COPD type: chronic bronchitis Chronic bronchitis type: unspecified Qualified Code(s): J42 - Unspecified chronic bronchitis (4) Leukocytosis Current Visit: Yes Status: Resolved Assessment and plan: Resolved. Continue to monitor. Qualifiers: Leukocytosis type: unspecified Qualified Code(s): D72.829 - Elevated white blood cell count, unspecified (5) DVT prophylaxis Current Visit: Yes Status: Acute Assessment and plan: heparin SQ (6) Essential hypertension Current Visit: Yes Status: Chronic Assessment and plan: Chronic. Stable. Continue home medications. (7) CAD (coronary artery disease) Current Visit: Yes Status: Acute Assessment and plan: Denies chest pain. EKG sinus rhythm with a rate of 90, [place] interval 180, QRS 83 , QT 381, QTC 429. Aspirin and Plavix have been held preoperatively. Continue amlodipine and antiplatelets after surgery. Qualifiers: Coronary Disease-Associated Artery/Lesion type: [place] artery [place] vs. transplanted heart: [place] heart Associated angina: without angina Qualified Code(s): I25.10 - Atherosclerotic heart disease of [place] coronary artery without angina pectoris (8) Hip fracture Current Visit: Yes Status: Acute Assessment and plan: Status post mechanical fall. Patient is going to surgery for repair. Right hip fracture, prior left hip fracture with ORIF 1 year ago. Femur X-Ray 05/03/18 03:38 IMPRESSION: 1. Traumatic comminuted right intertrochanteric femoral neck fracture with 1.9 cm of anterior displacement. No evidence of hip dislocation. 2. Subacute nondisplaced left superior and inferior pubic rami fractures. 3. Status post ORIF of left femoral neck fracture. Alignment is anatomic. No superimposed acute osseous finding. D/ / 05/03/2018 07:51:00 Clement Jimenez MD / klaudia Interpreting Provider: Clement Jimenez MD Hip/Pelvis X-Ray 05/03/18 03:38 IMPRESSION: 1. Traumatic comminuted right intertrochanteric femoral neck fracture with 1.9 cm of anterior displacement. No evidence of hip dislocation. 2. Subacute nondisplaced left superior and inferior pubic rami fractures. 3. Status post ORIF of left femoral neck fracture. Alignment is anatomic. No superimposed acute osseous finding. D/ / 05/03/2018 07:51:00 Clement Jimenez MD / klaudia Interpreting Provider: Clement Jimenez MD Qualifiers: Encounter type: initial encounter Fracture type: closed Laterality: left Qualified Code(s): S72.002A - Fracture of unspecified part of neck of left femur, initial encounter for closed fracture - Time Spent With Patient Total time spent is greater than 50% in coordination of care (as documented) at patient's floor/unit and/or counseling patient: less than 15 minutes - Subjective Interval history: Patient was seen and assessed at bedside this morning at 9:50 AM. She had a granddaughter at bedside. Multiple questions were answered, process explained. Patient reported 10/10 pain to right hip. 2 different by mouth pain medications were attempted without effect, with recommendation of orthopedics, patient was given fentanyl IV throughout the day it appeared to get adequate pain relief. - Constitutional Vitals: Temp Pulse Resp BP Pulse Ox 98.6 F 96 16 114/68 95 05/03/18 15:28 05/03/18 15:28 05/03/18 15:57 05/03/18 15:28 05/03/18 15:57 General appearance: Present: cooperative, A&O X 3, severe distress, answers questions appropriately - Head Head exam: Present: atraumatic, normal inspection, normocephalic - Eye Eye exam: Present: normal appearance, conjuntiva pink, sclera anicteric - Neck Neck exam general surgery: Present: supple, trachea midline. Absent: lymphadenopathy - Respiratory Respiratory exam: Present: CTAB. Absent: accessory muscle use, chest wall tenderness, rales, respiratory distress, rhonchi, wheezes - Cardiovascular Cardiovascular exam: Present: RRR, +S1, +S2. Absent: diastolic murmur, gallop, rubs, systolic murmur - GI/Abdominal GI/Abdominal exam: Present: normal bowel sounds, soft, no peritoneal signs. Absent: distended, hepatomegaly, tenderness - Extremities Exam Extremities exam: Present: normal capillary refill, normal inspection, warm, radial pulses palpable and symmetrical. Absent: calf tenderness, cyanotic, pedal edema, tenderness - Expanded Lower Extremities Exam Hip exam: Present: external rotation, shortening, tenderness Lower Leg exam: Present: deformity, tenderness. Absent: normal inspection - Neurological Exam Neurological exam: Present: alert, oriented X3, no focal deficits. Absent: facial droop, speech deficit - Skin Skin exam: Present: dry, intact, normal color, warm. Absent: rash Internal Medicine: Result - Labs CBC & Chem 7: 05/03/18 12:22 05/03/18 06:28 Labs: Short CBC 05/03/18 05/03/18 Range/Units 06:28 12:22 WBC 10.6 (4.3-11.1) K/mcL Hgb 7.8 L 7.2 L (11.5-15.4) g/dL Hct 23.4 L 22.0 L (35.3-44.9) % Plt Count 203 (140-400) K/mcL Neutrophils # 9.0 H (1.6-8.9) K/mcL BMP 05/03/18 06:28 Sodium 139 Potassium 4.2 Chloride 107 Carbon Dioxide 20 L BUN 31 H Creatinine 0.86 Glucose 252 H Calcium 9.1 Urine 05/03/18 Range/Units 15:50 Urine Color Dark Yellow (Yellow) Urine Clarity Cloudy A (Clear) Urine pH 5.5 (5.0-8.0) pH Units Ur Specific [place] 1.030 H (1.010-1.025) Urine Protein 100 H (Neg-Trace) mg/dL Urine Glucose (UA) Normal (Normal) mg/dL - ABG Interpretation ABG results: PT/INR, D-dimer PT 13.2 Seconds (9.4-12.1) H 05/03/18 06:28 - Impressions Impressions Femur X-Ray 05/03/18 03:38 IMPRESSION: 1. Traumatic comminuted right intertrochanteric femoral neck fracture with 1.9 cm of anterior displacement. No evidence of hip dislocation. 2. Subacute nondisplaced left superior and inferior pubic rami fractures. 3. Status post ORIF of left femoral neck fracture. Alignment is anatomic. No superimposed acute osseous finding. D/ /03/2018 07:51:00 Clement Jimenez MD / klaudia Interpreting Provider: Clement Jimenez MD Femur X-Ray 05/03/18 03:38 IMPRESSION: 1. Traumatic comminuted right intertrochanteric femoral neck fracture with 1.9 cm of anterior displacement. No evidence of hip dislocation. 2. Subacute nondisplaced left superior and inferior pubic rami fractures. 3. Status post ORIF of left femoral neck fracture. Alignment is anatomic. No superimposed acute osseous finding. D/ /03/2018 07:51:00 Clement Jimenez MD / klaudia Interpreting Provider: Clement Jimenez MD Hip/Pelvis X-Ray 05/03/18 03:38 IMPRESSION: 1. Traumatic comminuted right intertrochanteric femoral neck fracture with 1.9 cm of anterior displacement. No evidence of hip dislocation. 2. Subacute nondisplaced left superior and inferior pubic rami fractures. 3. Status post ORIF of left femoral neck fracture. Alignment is anatomic. No superimposed acute osseous finding. D/ /03/2018 07:51:00 Clement Jimenez MD / klaudia Interpreting Provider: Clement Jimenez MD Consult Discharge Plan - Plan Referrals: Sapna Ruiz MD [Primary Care Provider] -
[2018-05-03] MEDS ORDERED: *HR* Labetalol 20 MG/4 ML SYRINGE IVP PRN (20:59)
[2018-05-03 21:43] LABS: Hematocrit 29.8 % (35.3-44.9)
[2018-05-03 21:44] LABS: Hemoglobin 9.6 g/dL (11.5-15.4)
--- NOTE | 2018-05-03 22:48 | Operative Note ---
Date of procedure: 05/03/18 Pre-op diagnosis: Right hip intertrochanteric fracture with subtrochanteric extension Post-op diagnosis: same Procedure: Right hip intramedullary nailing Implants: Mary long gamma nail Anesthesia: BRIDGET Surgeon: Almas Moore Was there an special ed assistant present: No Estimated blood loss (cc): 300 Specimen: 0 Condition: stable Disposition: PACU Procedure in Detail: The patient received IV antibiotics in the holding area. She was brought to the operating room, sign in was performed. The patient underwent general anesthesia on the hospital bed. She was then transferred to the fracture table in supine position. At this point we started a transfusion of packed red blood cells. The patient was positioned with the support groin post, the affected right lower extremity in the traction alatorre and the contralateral lower extremity in a well-padded limb alatorre with a hip flexed and abducted out of the way. Fluoroscopy was then brought in, the fractures visualized, and the fracture reduced. It was seen that this was actually a subtrochanteric fracture. A long nail will be used. We checked on AP and true lateral view of the hip. The greater trochanter was grossly displaced, but appeared to be reducible with direct pressure over the lateral side. Once satisfactory the right hip, from the pelvis down to the knee, was prepped and draped in usual sterile fashion. A timeout was performed. The level of the greater trochanter was palpated, a 4-5 cm oblique incision was made just proximally, , followed by Bovie dissection. The patient had a very deep subcutaneous fat layer. The incision was extended 3 cm. The hip abductor was sharply split in line with its fibers with a curved Daniel scissors. The tip of the greater trochanter was palpable. A curved awl was then positioned on the tip. Its position was checked on fluoroscopy, slightly advanced, and we checked the lateral view. Once appropriately positioned, the aggressive awl was then used to open the proximal femur down to level of the lesser trochanter. A guidewire was inserted down the awl, across the fracture site, and driven down to the distal femur. Then measured the length of the guidewire. I started reaming with a 9 mm reamer and stopped at 12 with mild chatter. A long gamma nail with 125 degree neck angle, 11 mm diameter, was assembled, and appropriately inserted into the proximal femur. The appropriate level was checked under fluoroscopy. The trochars were placed in the jig at 125 degree neck angle was then positioned against the skin, and the radiolucent guide was used to assist in positioning. Once satisfactory a 2.5 cm incision was made, the fascia was bluntly split along with the muscle fibers of the vastus lateralis. The triple trocar was advanced up against the lateral cortex. The guidepin was then driven up into the femoral head, checking AP and lateral views. A 100 mm length lag screw was chosen. Overdrilled the guidewire, and the lag screw was inserted over the guidewire. Once close to the edge of the femoral head, the T-handled was held parallel to the nail. Traction was then taken off the leg, and the fracture compressed. The setscrew was fully tightened at the top, and backed off a quarter turn The distal targeting was attached to the jig. Fluoroscopy was appropriately set up and the targeting was adjusted. The triple trochars for the distal static locking screw were placed in the jig, a 1 cm longitudinal incision was made. The trochars were advanced to the cortex, and drilled across. The depth was measured and a 55 mm by 5 mm bicortical screw was placed. A second screw was placed more proximal static locking hole. A 47.5 mm screws placed or. All trochars and jig were removed. Final fluoroscopy shots were taken and saved showing good AP and lateral views of the hip and also distally at the tip of the nail. It was noted that the screws were not going through the nail. The screws removed and the technique of perfect circles was used to redrill and replaced the same screws. Fluoroscopic shots were confirmed again distally. The wounds were irrigated with normal saline. Fascia over the abductors was closed with 1 Vicryl [id number] stitches, including the deep subcutaneous fat layer. Subcutaneous tissues were closed with 2-0 Vicryl, and the skin incisions were closed with the Zipline system. Sterile dressings were applied. The patient was transferred to hospital bed where she was extubated and taken to recovery room in stable condition.
--- NOTE | 2018-05-03 23:11 | Anesthesia Evaluation Post Op ---
Date of Encounter: 05/03/18 Time of Encounter: 21:25 - Vital Signs Vital Signs: Vital Signs/O2 Sat/Glucose, Most Current Temp Pulse Resp BP Pulse Ox 05/03/18 21:29 99 F 78 20 162/75 96 05/03/18 21:19 77 20 147/67 95 05/03/18 21:09 82 20 172/74 96 05/03/18 20:59 99.6 F 87 20 192/90 97 f - Lungs Lungs: Clear Ascult./Percussion - Airway Airway: Non-obstructed - Cardiovascular Regular Rate - Mental Status Mental Status: Alert & Oriented, Answers Appropriately - Pain Pain Scale: 0 Pain Scale used: Numeric (1 - 10) - Nausea Vomiting Nausea Vomiting: Not Present - Hydration Hydration: NPO, Marina catheter - Discharge PostOp Status: Transfer Patient to floor Anes Supervising Prov Stmt: Pt seen/evaluated, VSS And pt has met criteria for discharge to floor. - MD Ara
[2018-05-04 01:17] LABS: Basophils % 0.1 %; Hematocrit 24.2 % (35.3-44.9); Hemoglobin 8.1 g/dL (11.5-15.4); Immature Granulocytes % 0.5 % (0-4); Lymphocytes # 0.6 K/mcL (0.6-4.6); Lymphocytes % 6.3 %; Mean Corpuscular HGB Conc 33.5 g/dL (31.6-35.5); Mean Corpuscular Hemoglobin 32.1 pg (28.0-33.3); Mean Platelet Volume 10.3 fL (9.4-12.4); Monocytes # 0.4 K/mcL (0.0-1.3); Monocytes % 3.8 %; Platelet Count 134 K/mcL (140-400); Red Blood Count 2.52 M/mcL (3.82-4.97); Red Cell Distribution Width 13.8 % (11.5-14.5); Segmented Neutrophils % 89.3 %
[2018-05-04 01:18] LABS: Hematocrit 24.7 % (35.3-44.9); Hemoglobin 8.2 g/dL (11.5-15.4)
[2018-05-04 01:35] LABS: Calcium 8.2 mg/dL (8.6-10.3); Potassium 4.2 mEq/L (3.5-5.1)
[2018-05-04] MEDS: ceFAZolin 2,000 MG in 0.9 % Sodium Chloride 100 ML IVPB SCH ×2 (03:34→11:10)
[2018-05-04] MEDS: *HR* Heparin 5,000 UNIT/ML VIAL SQ SCH (07:02)
[2018-05-04] MEDS: *HR* FentaNYL (PF) 100 MCG/2 ML VIAL IVP PRN (08:15)
[2018-05-04] MEDS: Insulin LISPRO 300 UNITS/3 ML VIAL SQ SCH ×4 (08:17→20:37)
[2018-05-04] MEDS: Folic Acid 1 MG TABLET PO SCH (08:18)
[2018-05-04] MEDS: FLUoxetine 20 MG CAPSULE PO SCH (08:18)
[2018-05-04] MEDS: Cholecalciferol (D-3) 1,000 UNIT TABLET PO SCH (08:18)
[2018-05-04] MEDS: amLODIPine 5 MG TABLET PO SCH (08:18)
[2018-05-04] MEDS: Furosemide 20 MG TABLET PO SCH (08:18)
[2018-05-04 10:05] LABS: Hemoglobin 7.3 g/dL (11.5-15.4)
[2018-05-04] MEDS: *HR* OxyCODONE/APAP 10/325 TABLET PO PRN ×4 (11:08→23:12)
[2018-05-04] MEDS: Magnesium Oxide 400 MG TABLET PO SCH (11:09)
[2018-05-04] MEDS ORDERED: 0.9 % Sodium Chloride 250 ML ONE (12:19)
--- NOTE | 2018-05-04 13:42 | Orthopedics Progress Note ---
Date of Encounter: 05/04/18 Time of Encounter: 17:39 - Assessment and Plan (1) Status post hip surgery Current Visit: Yes Status: Acute (2) Hip fracture, left Current Visit: No Status: Acute Qualifiers: Encounter type: subsequent encounter Fracture type: closed Fracture healing: with delayed healing Qualified Code(s): S72.002G - Fracture of unspecified part of neck of left femur, subsequent encounter for closed fracture with delayed healing Subjective Principal diagnosis: right hip fracture Interval history: Date of procedure: 05/03/18 Pre-op diagnosis: Right hip intertrochanteric fracture with subtrochanteric extension Post-op diagnosis: same Procedure: Right hip intramedullary nailing Patient seen at bedside. Son and daughter in law at bedside. Patient gave permission to speak in front of her family members. Alert and oriented on exam. Conversive. Denies much pain. Admits to spasms and relief with muscle relaxer. No calf tenderness bilaterally. Neurovasculalry intact. Labwork and medications reviewed. 05/04: H/H: 8.1/24.7 Pain control: Adequate Participating in PT. All questions and concerns addressed. Educated on use of incentive spirometer, ambulation, and hydration. Patient educated on post-operative restrictions and care. Addressed: see above. D/C plan: per primary team Objective Vital signs: Vital Signs Temp Pulse Resp BP Pulse Ox 05/04/18 12:46 98.3 F 87 16 104/58 96 05/04/18 12:31 98.3 F 98 16 122/67 96 05/04/18 11:20 16 92 05/04/18 11:18 98.3 F 84 18 132/71 96 05/04/18 07:54 16 100 05/04/18 06:59 98.2 F 77 16 130/69 98 05/04/18 04:29 15 96 05/04/18 03:40 97.9 F 70 16 118/61 99 05/04/18 01:14 98.5 F 75 16 104/64 98 05/04/18 00:20 97.7 F 77 16 120/68 97 05/03/18 23:48 14 96 05/03/18 23:12 97.9 F 78 18 132/72 97 05/03/18 22:30 98.3 F 78 0 127/67 96 05/03/18 21:59 97.8 F 81 16 178/74 97 05/03/18 21:29 99 F 78 20 162/75 96 05/03/18 21:19 77 20 147/67 95 05/03/18 21:09 82 20 172/74 96 05/03/18 20:59 99.6 F 87 20 192/90 97 05/03/18 15:57 16 95 05/03/18 15:28 98.6 F 96 14 114/68 95 Intake and Output 05/03/18 05/04/18 05/04/18 23:59 07:59 15:59 Intake Total 200 / 200 240 / 240 Output Total 350 / 350 250 / 250 Balance -350 / -350 -50 / -50 240 / 240 Intake: IV Fluids 100 / 100 Ancef 2,000 MG In 0.9 % Sodium 100 / 100 Chloride 100 ML @ 200 mls/hr IVPB Q8H [facility] Rx#:[id number] Oral 100 / 100 240 / 240 Blood Product 0 / 0 Rbcs Leuko Poor As-1 Unit 0 / 0 [id number] Output: Estimated Blood Loss 300 / 300 Urine Amount (Catheter) 50 / 50 Catheter 250 / 250 Other: Meal Breakfast Percent of Meal Consumed 75% # Voids 1 Blood Glucose* 342 265 223 - Labs CBC & BMP: 05/04/18 16:09 05/04/18 00:47 Labs: Abnormal lab results RBC 2.52 M/mcL (3.82-4.97) L 05/04/18 00:47 Hgb 7.3 g/dL (11.5-15.4) L 05/04/18 09:34 Hct 22.0 % (35.3-44.9) L 05/04/18 09:34 Plt Count 134 K/mcL (140-400) L 05/04/18 00:47 Neutrophils # 9.0 K/mcL (1.6-8.9) H 05/04/18 00:47 PT 13.2 Seconds (9.4-12.1) H 05/03/18 06:28 Chloride 109 mEq/L (98-107) H 05/04/18 00:47 Carbon Dioxide 21 mEq/L (23-29) L 05/04/18 00:47 BUN 37 mg/dL (8-23) H 05/04/18 00:47 Est GFR ( Amer) 53 (> 60) L 05/04/18 00:47 Est GFR (Non-Af Amer) 43 (> 60) L 05/04/18 00:47 BUN/Creatinine Ratio 31 (6-26) H 05/04/18 00:47 Glucose 313 mg/dL (70-105) H 05/04/18 00:47 POC Glucose 223 mg/dL (70-99) H 05/04/18 11:26 Calculated Osmolality 309 (280-300) H 05/04/18 00:47 Calcium 8.2 mg/dL (8.6-10.3) L 05/04/18 00:47 Magnesium 1.5 mg/dL (1.6-2.6) L 05/03/18 06:28 Folate > 22.3 ng/mL (3.0-16.0) H 05/03/18 12:22 Urine Clarity Cloudy (Clear) A 05/03/18 15:50 Ur Specific [place] 1.030 (1.010-1.025) H 05/03/18 15:50 Urine Protein 100 mg/dL (Neg-Trace) H 05/03/18 15:50 Urine Ketones Trace mg/dL (Negative) H 05/03/18 15:50 Urine Bilirubin Moderate (Negative) H 05/03/18 15:50 Ur Leukocyte Esterase Moderate (Negative) H 05/03/18 15:50 Urine Microscopic RBC 3-5 per hpf (0-3) H 05/03/18 15:50 Urine Microscopic WBC 30-50 per hpf (0-3) H 05/03/18 15:50 Ur Squamous Epith Cells Many per lpf (None-Few) H 05/03/18 15:50 Ur Culture Indicated? NO. (NO) A 05/03/18 15:50 - VTE Documentation of Mechanical Device: Intermittent pneumatic compression device Consult Discharge Plan - Plan Referrals: Sapna Ruiz MD [Primary Care Provider] -
[2018-05-04 16:18] LABS: Hematocrit 24.7 % (35.3-44.9); Hemoglobin 8.1 g/dL (11.5-15.4)
--- NOTE | 2018-05-04 18:13 | Internal Med Progress Note ---
Date of Encounter: 05/04/18 Time of Encounter: 11:00 - Assessment and plan (1) History of gout Current Visit: Yes Status: Chronic Assessment and plan: Chronic. Continue home medications. (2) Diabetes Current Visit: Yes Status: Chronic Assessment and plan: Chronic. Diabetic diet, accuchecks achs, SSI Patient is hyperglycemic with POC glucose. Consider increasing sliding scale insulin. Qualifiers: Diabetes mellitus type: type 2 Diabetes mellitus correction insulin use: without intermediate frame tender use Diabetes mellitus complication status: without complication Qualified Code(s): E11.9 - Type 2 diabetes mellitus without complications (3) COPD (chronic obstructive pulmonary disease) Current Visit: Yes Status: Chronic Assessment and plan: No acute exacerbation. Lungs clear and diminished, no supplemental O2 use. Continue home inhalers, nebulizers when necessary Qualifiers: COPD type: chronic bronchitis Chronic bronchitis type: unspecified Qualified Code(s): J42 - Unspecified chronic bronchitis (4) DVT prophylaxis Current Visit: Yes Status: Acute Assessment and plan: heparin, encourage ambulation and participation with PT (5) Essential hypertension Current Visit: Yes Status: Chronic Assessment and plan: Chronic. Continue home medications. Monitor vital signs per admission order. (6) CAD (coronary artery disease) Current Visit: Yes Status: Acute Assessment and plan: Denies chest pain. Continue aspirin and Plavix after surgery Continue amlodipine and antiplatelets after surgery. Qualifiers: Coronary Disease-Associated Artery/Lesion type: [place] artery [place] vs. transplanted heart: [place] heart Associated angina: without angina Qualified Code(s): I25.10 - Atherosclerotic heart disease of [place] coronary artery without angina pectoris (7) Hip fracture Current Visit: Yes Status: Acute Assessment and plan: Postop day one ORIF right hip Orthopedics following and recommending pain medication. Patient been evaluated by PT, SNF for discharge with PT. Femur X-Ray 05/03/18 03:38 IMPRESSION: 1. Traumatic comminuted right intertrochanteric femoral neck fracture with 1.9 cm of anterior displacement. No evidence of hip dislocation. 2. Subacute nondisplaced left superior and inferior pubic rami fractures. 3. Status post ORIF of left femoral neck fracture. Alignment is anatomic. No superimposed acute osseous finding. D/ / 05/03/2018 07:51:00 Clement Jimenez MD / klaudia Interpreting Provider: Clement Jimenez MD Hip/Pelvis X-Ray 05/03/18 03:38 IMPRESSION: 1. Traumatic comminuted right intertrochanteric femoral neck fracture with 1.9 cm of anterior displacement. No evidence of hip dislocation. 2. Subacute nondisplaced left superior and inferior pubic rami fractures. 3. Status post ORIF of left femoral neck fracture. Alignment is anatomic. No superimposed acute osseous finding. D/ / 05/03/2018 07:51:00 Clement Jimenez MD / klaudia Interpreting Provider: Clement Jimenez MD Qualifiers: Encounter type: initial encounter Fracture type: closed Laterality: left Qualified Code(s): S72.002A - Fracture of unspecified part of neck of left femur, initial encounter for closed fracture (8) Leukocytosis Current Visit: Yes Status: Resolved Qualifiers: Leukocytosis type: unspecified Qualified Code(s): D72.829 - Elevated white blood cell count, unspecified - Time Spent With Patient Total time spent is greater than 50% in coordination of care (as documented) at patient's floor/unit and/or counseling patient: less than 15 minutes - Subjective Interval history: Patient was seen and assessed at bedside this morning at 1100 AM. She had daughter at bedside. Multiple questions were answered, both verbalized understanding. Patient reported improving pain to right hip. Denies headache, nausea, vomiting, diarrhea, abdominal pain, chest pain or shortness of breath. Urge patient to get up to bedside, patient states pain is too bad. - Constitutional Vitals: Temp Pulse Resp BP Pulse Ox 99.1 F 92 16 116/71 93 05/04/18 15:55 05/04/18 15:55 05/04/18 16:00 05/04/18 15:55 05/04/18 16:00 General appearance: Present: cooperative, A&O X 3, pleasant, no acute distress, severe distress, answers questions appropriately - Head Head exam: Present: atraumatic, normal inspection, normocephalic - Eye Eye exam: Present: normal appearance, conjuntiva pink, sclera anicteric - Neck Neck exam general surgery: Present: supple, trachea midline. Absent: lymphadenopathy - Respiratory Respiratory exam: Present: CTAB. Absent: accessory muscle use, rales, rhonchi, wheezes - Cardiovascular Cardiovascular exam: Present: RRR, +S1, +S2. Absent: diastolic murmur, gallop, rubs, systolic murmur - GI/Abdominal GI/Abdominal exam: Present: normal bowel sounds, soft, no peritoneal signs. Absent: distended, tenderness - Extremities Exam Extremities exam: Present: normal capillary refill, normal inspection, warm, radial pulses palpable and symmetrical. Absent: calf tenderness, cyanotic, pedal edema, tenderness - Neurological Exam Neurological exam: Present: alert, oriented X3, no focal deficits. Absent: facial droop, speech deficit - Skin Skin exam: Present: dry, intact, normal color, warm. Absent: rash Internal Medicine: Result - Labs CBC & Chem 7: 05/04/18 16:09 05/04/18 00:47 Labs: Short CBC 05/03/18 05/04/18 05/04/18 Range/Units 21:10 00:47 00:47 WBC 10.0 (4.3-11.1) K/mcL Hgb 9.6 L D 8.2 L 8.1 L (11.5-15.4) g/dL Hct 29.8 L 24.7 L 24.2 L (35.3-44.9) % Plt Count 134 L (140-400) K/mcL Neutrophils # 9.0 H (1.6-8.9) K/mcL 05/04/18 05/04/18 Range/Units 09:34 16:09 WBC (4.3-11.1) K/mcL Hgb 7.3 L 8.1 L (11.5-15.4) g/dL Hct 22.0 L 24.7 L (35.3-44.9) % Plt Count (140-400) K/mcL Neutrophils # (1.6-8.9) K/mcL BMP 05/04/18 00:47 Sodium 139 Potassium 4.2 Chloride 109 H Carbon Dioxide 21 L BUN 37 H Creatinine 1.18 Glucose 313 H Calcium 8.2 L - ABG Interpretation ABG results: PT/INR, D-dimer PT 13.2 Seconds (9.4-12.1) H 05/03/18 06:28 - Impressions Impressions Fluoroscopy 05/03/18 00:00 IMPRESSION: Intraprocedural fluoroscopic spot images as above. See separate procedure report for more information. D/ / Nick Smith MD / Nick Smith MD Interpreting Provider: Nick Smith MD Femur X-Ray 05/03/18 03:38 IMPRESSION: 1. Traumatic comminuted right intertrochanteric femoral neck fracture with 1.9 cm of anterior displacement. No evidence of hip dislocation. 2. Subacute nondisplaced left superior and inferior pubic rami fractures. 3. Status post ORIF of left femoral neck fracture. Alignment is anatomic. No superimposed acute osseous finding. D/ : / 05/03/2018 07:51:00 Clement Jimenez MD / klaudia Interpreting Provider: Clement Jimenez MD Femur X-Ray 05/03/18 03:38 IMPRESSION: 1. Traumatic comminuted right intertrochanteric femoral neck fracture with 1.9 cm of anterior displacement. No evidence of hip dislocation. 2. Subacute nondisplaced left superior and inferior pubic rami fractures. 3. Status post ORIF of left femoral neck fracture. Alignment is anatomic. No superimposed acute osseous finding. D/ /03/2018 07:51:00 Clement Jimenez MD / klaudia Interpreting Provider: Clement Jimenez MD Hip/Pelvis X-Ray 05/03/18 03:38 IMPRESSION: 1. Traumatic comminuted right intertrochanteric femoral neck fracture with 1.9 cm of anterior displacement. No evidence of hip dislocation. 2. Subacute nondisplaced left superior and inferior pubic rami fractures. 3. Status post ORIF of left femoral neck fracture. Alignment is anatomic. No superimposed acute osseous finding. D/ /03/2018 07:51:00 Clement Jimenez MD / klaudia Interpreting Provider: Clement Jimenez MD - VTE Documentation of Mechanical Device: Intermittent pneumatic compression device Consult Discharge Plan - Plan Referrals: Sapna Ruiz MD [Primary Care Provider] -
[2018-05-04 22:20] LABS: Hematocrit 23.9 % (35.3-44.9); Hemoglobin 7.8 g/dL (11.5-15.4)
[2018-05-05] MEDS: *HR* FentaNYL (PF) 100 MCG/2 ML VIAL IVP PRN (01:36)
[2018-05-05 01:53] LABS: Basophils % 0.2 %; Eosinophils # 0.1 K/mcL (0.0-0.6); Eosinophils % 0.5 %; Hematocrit 23.2 % (35.3-44.9); Hemoglobin 7.7 g/dL (11.5-15.4); Immature Granulocytes % 1.1 % (0-4); Lymphocytes # 2.5 K/mcL (0.6-4.6); Lymphocytes % 23.4 %; Mean Corpuscular HGB Conc 33.2 g/dL (31.6-35.5); Mean Corpuscular Volume 93.5 fL (83.0-100.0); Mean Platelet Volume 9.8 fL (9.4-12.4); Monocytes # 1.2 K/mcL (0.0-1.3); Monocytes % 11.3 %; Neutrophils # 6.6 K/mcL (1.6-8.9); Platelet Count 108 K/mcL (140-400); Red Blood Count 2.48 M/mcL (3.82-4.97); Red Cell Distribution Width 14.8 % (11.5-14.5); Segmented Neutrophils % 63.5 %
[2018-05-05 02:15] LABS: BUN/Creatinine Ratio 34 (6-26); Blood Urea Nitrogen 35 mg/dL (8-23); Calcium 8.6 mg/dL (8.6-10.3); Carbon Dioxide 24 mEq/L (23-29); Chloride 105 mEq/L (98-107); Glucose 225 mg/dL (70-105); Osmolality,Calculated 293 (280-300); Potassium 4.3 mEq/L (3.5-5.1); Sodium 134 mEq/L (136-145); eGFR For African Americans > 60 (> 60); eGFR For Non-African Americans 51 (> 60)
[2018-05-05] MEDS: *HR* OxyCODONE/APAP 10/325 TABLET PO PRN ×3 (06:24→19:03)
[2018-05-05] MEDS: amLODIPine 5 MG TABLET PO SCH (08:00)
[2018-05-05] MEDS: FLUoxetine 20 MG CAPSULE PO SCH (08:00)
[2018-05-05] MEDS: Furosemide 20 MG TABLET PO SCH (08:00)
[2018-05-05] MEDS: Folic Acid 1 MG TABLET PO SCH (08:00)
[2018-05-05] MEDS: Magnesium Oxide 400 MG TABLET PO SCH (08:00)
[2018-05-05] MEDS: Cholecalciferol (D-3) 1,000 UNIT TABLET PO SCH (08:00)
[2018-05-05] MEDS: *HR* Heparin 5,000 UNIT/ML VIAL SQ SCH (08:06)
[2018-05-05] MEDS: Insulin LISPRO 300 UNITS/3 ML VIAL SQ SCH ×4 (08:06→22:35)
[2018-05-05] MEDS ORDERED: 0.9 % Sodium Chloride 250 ML ONE ×2 (13:45→21:05)
--- NOTE | 2018-05-05 17:11 | Orthopedics Progress Note ---
Date of Encounter: 05/05/18 Time of Encounter: 12:30 - Assessment and Plan (1) Hip fracture Current Visit: Yes Status: Acute POD#2 s/p right hip IM nailing 05/05/18 Hgb 7.7 today. receiving 2 units RBC today. If stable for tomorrow then will plan for DC to ECF. Minimal drainage on dressings, not likely the source of the decrease in Hgb. Hospitalist managing. Continue Ice to right hip/knee as needed. Xrays of right knee and ankle show no acute bony abnormalities. Continue conservative treatment, ROM as tolerated. Pain control per hospitalist. She is requiring oxycodone 10mg for some breakthrough pain but made nurse aware goal is to consistently stick to 5mg when at all possible. muscle relaxer has provided significant relief as well. Continue with therapy. TTWB. Accepted at [facility] ON TUESDAY, 05/06. DVT prophylaxis - lovenox x 2 weeks then transition to aspirin x 4 weeks. Will follow up with Eusebia Batista PA-C in [facility] office on 05/17/18 at 8:30am. Qualifiers: Encounter type: initial encounter Fracture type: closed Laterality: left Qualified Code(s): S72.002A - Fracture of unspecified part of neck of left femur, initial encounter for closed fracture Subjective Principal diagnosis: POD#2 s/p - Right hip IM nailing 05/03/18 Interval history: Patient resting comfortably in bed, admits to worse pain in hip today than yesterday but well controlled with medication. Spams improved with muscle relaxer. Denies any calf tenderness. States she did not work with therapy today due to hurting too much but therapy note does state she participated today. Objective Vital signs: Vital Signs Temp Pulse Resp BP Pulse Ox 05/05/18 16:37 16 94 05/05/18 14:58 98.1 F 84 16 106/70 92 05/05/18 14:10 97.6 F 77 16 104/63 95 05/05/18 13:55 97.4 F L 81 16 133/62 97 05/05/18 11:24 97.7 F 87 16 115/67 98 05/05/18 11:03 16 91 05/05/18 07:25 12 93 05/05/18 06:43 98.2 F 80 16 137/74 94 05/05/18 03:48 98.6 F 85 16 132/63 94 05/04/18 23:09 98.2 F 82 16 133/64 93 05/04/18 20:58 18 98 05/04/18 18:47 97.8 F 88 16 143/65 93 Intake and Output 05/05/18 05/05/18 05/05/18 07:59 15:59 23:59 Intake Total 240 / 240 Balance 240 / 240 Intake: Oral 240 / 240 Blood Product 0 / 0 Rbcs Leuko Poor As-1 Unit 0 / 0 [id number] Other: Meal Breakfast Percent of Meal Consumed 70% # Voids 2 # Urine Diapers 1 Blood Glucose* 201 165 Incision: draining (Minimal bloody drainage noted on dressings today. no surrounding erythema. no calf tenderness to palpation. good dorsiflexion of foot. grossly NV intact distally.) - Labs CBC & BMP: 05/05/18 01:39 05/05/18 01:39 Labs: Abnormal lab results RBC 2.48 M/mcL (3.82-4.97) L 05/05/18 01:39 Hgb 7.7 g/dL (11.5-15.4) L 05/05/18 01:39 Hct 23.2 % (35.3-44.9) L 05/05/18 01:39 RDW 14.8 % (11.5-14.5) H 05/05/18 01:39 Plt Count 108 K/mcL (140-400) L 05/05/18 01:39 PT 13.2 Seconds (9.4-12.1) H 05/03/18 06:28 Sodium 134 mEq/L (136-145) L 05/05/18 01:39 BUN 35 mg/dL (8-23) H 05/05/18 01:39 Est GFR (Non-Af Amer) 51 (> 60) L 05/05/18 01:39 BUN/Creatinine Ratio 34 (6-26) H 05/05/18 01:39 Glucose 225 mg/dL (70-105) H 05/05/18 01:39 POC Glucose 165 mg/dL (70-99) H 05/05/18 11:27 Magnesium 1.5 mg/dL (1.6-2.6) L 05/03/18 06:28 Lactate Dehydrogenase 139 Units/L (140-271) L 05/05/18 11:03 Folate > 22.3 ng/mL (3.0-16.0) H 05/03/18 12:22 Urine Clarity Cloudy (Clear) A 05/03/18 15:50 Ur Specific [place] 1.030 (1.010-1.025) H 05/03/18 15:50 Urine Protein 100 mg/dL (Neg-Trace) H 05/03/18 15:50 Urine Ketones Trace mg/dL (Negative) H 05/03/18 15:50 Urine Bilirubin Moderate (Negative) H 05/03/18 15:50 Ur Leukocyte Esterase Moderate (Negative) H 05/03/18 15:50 Urine Microscopic RBC 3-5 per hpf (0-3) H 05/03/18 15:50 Urine Microscopic WBC 30-50 per hpf (0-3) H 05/03/18 15:50 Ur Squamous Epith Cells Many per lpf (None-Few) H 05/03/18 15:50 Ur Culture Indicated? NO. (NO) A 05/03/18 15:50 - VTE Documentation of Mechanical Device: Intermittent pneumatic compression device Consult Discharge Plan - Plan Referrals: Sapna Ruiz MD [Primary Care Provider] -
--- NOTE | 2018-05-05 18:24 | Internal Med Progress Note ---
Date of Encounter: 05/05/18 Time of Encounter: 13:10 - Assessment and plan (1) History of gout Current Visit: Yes Status: Chronic Assessment and plan: Chronic. (2) Diabetes Current Visit: Yes Status: Chronic Assessment and plan: Chronic. Type II. Diabetic diet, accuchecks achs, SSI Qualifiers: Diabetes mellitus type: type 2 Diabetes mellitus care home insulin use: without continuous churn buttermaker use Diabetes mellitus complication status: without complication Qualified Code(s): E11.9 - Type 2 diabetes mellitus without complications (3) COPD (chronic obstructive pulmonary disease) Current Visit: Yes Status: Chronic Assessment and plan: No acute exacerbation. Continue home medications, nebulizers prn. Qualifiers: COPD type: chronic bronchitis Chronic bronchitis type: unspecified Qualified Code(s): J42 - Unspecified chronic bronchitis (4) DVT prophylaxis Current Visit: Yes Status: Acute Assessment and plan: heparin, encourage ambulation and participation with PT. Pt to be discharged to [facility] for therapy tomorrow. (5) Essential hypertension Current Visit: Yes Status: Chronic Assessment and plan: Vitals stable. Continue current medications. (6) CAD (coronary artery disease) Current Visit: Yes Status: Acute Assessment and plan: Denies chest pain. Continue aspirin and Plavix after surgery Continue telemetry Qualifiers: Coronary Disease-Associated Artery/Lesion type: [place] artery [place] vs. transplanted heart: [place] heart Associated angina: without angina Qualified Code(s): I25.10 - Atherosclerotic heart disease of [place] coronary artery without angina pectoris (7) Hip fracture Current Visit: Yes Status: Acute Assessment and plan: Postop day 2, ORIF right hip Orthopedics following Patient been evaluated by PT, SNF for discharge with PT. Incision covered, minimal blood to dressing, dry and intact. Femur X-Ray 05/03/18 03:38 IMPRESSION: 1. Traumatic comminuted right intertrochanteric femoral neck fracture with 1.9 cm of anterior displacement. No evidence of hip dislocation. 2. Subacute nondisplaced left superior and inferior pubic rami fractures. 3. Status post ORIF of left femoral neck fracture. Alignment is anatomic. No superimposed acute osseous finding. D/ / 05/03/2018 07:51:00 Clement Jimenez MD / klaudia Interpreting Provider: Clement Jimenez MD Hip/Pelvis X-Ray 05/03/18 03:38 IMPRESSION: 1. Traumatic comminuted right intertrochanteric femoral neck fracture with 1.9 cm of anterior displacement. No evidence of hip dislocation. 2. Subacute nondisplaced left superior and inferior pubic rami fractures. 3. Status post ORIF of left femoral neck fracture. Alignment is anatomic. No superimposed acute osseous finding. D/ / 05/03/2018 07:51:00 Clement Jimenez MD / klaudia Interpreting Provider: Clement Jimenez MD Qualifiers: Encounter type: initial encounter Fracture type: closed Laterality: left Qualified Code(s): S72.002A - Fracture of unspecified part of neck of left femur, initial encounter for closed fracture (8) Leukocytosis Current Visit: Yes Status: Resolved Qualifiers: Leukocytosis type: unspecified Qualified Code(s): D72.829 - Elevated white blood cell count, unspecified (9) Anemia Current Visit: Yes Status: Chronic Assessment and plan: Appears to be chronic since 2014, normal around 8-9. Pt reports that she normally takes Ferrous Sulfate daily, has been continued. Tj arriola consulted oncology [employer], she states that she feels the anemia is stable and is more related to blood loss s/p surgery. Recommends to watch today and recheck in the a.m., transfuse tomorrow if necessary. Pt is being followed by orthopedics, they have ordered 2 units PRBCs, will continue to trend H&H. Iron level WNL, % sat 19. Ferritin WNL. B12 and Folate non-contributory. Continue Ferrous Sulfate at [facility] after discharge. Qualifiers: Anemia type: iron deficiency Iron deficiency anemia type: inadequate dietary iron intake Qualified Code(s): D50.8 - Other iron deficiency anemias - Time Spent With Patient Total time spent is greater than 50% in coordination of care (as documented) at patient's floor/unit and/or counseling patient: - Subjective Interval history: Patient was seen and assessed at bedside at 1310. No family at bedside. Patient reported improving pain to right hip. Denies headache, nausea, vomiting, diarrhea, abdominal pain, chest pain or shortness of breath. Pt is aware that she will be discharged to [facility] tomorrow. - Constitutional Vitals: Temp Pulse Resp BP Pulse Ox 98.3 F 84 16 126/69 92 05/05/18 17:42 05/05/18 17:42 05/05/18 17:42 05/05/18 17:42 05/05/18 17:42 General appearance: Present: cooperative, A&O X 3, pleasant, no acute distress, severe distress, answers questions appropriately - Head Head exam: Present: atraumatic, normal inspection, normocephalic - Eye Eye exam: Present: normal appearance, conjuntiva pink, sclera anicteric - Neck Neck exam general surgery: Present: supple, trachea midline. Absent: lymphadenopathy, tenderness - Respiratory Respiratory exam: Present: CTAB. Absent: accessory muscle use, rales, rhonchi, wheezes - Cardiovascular Cardiovascular exam: Present: RRR, +S1, +S2. Absent: diastolic murmur, gallop, rubs, systolic murmur - GI/Abdominal GI/Abdominal exam: Present: normal bowel sounds, soft. Absent: distended, hepatomegaly, tenderness - Extremities Exam Extremities exam: Present: normal capillary refill, normal inspection, warm, radial pulses palpable and symmetrical. Absent: calf tenderness, cyanotic, pedal edema, tenderness - Neurological Exam Neurological exam: Present: alert, oriented X3, no focal deficits. Absent: facial droop, speech deficit - Skin Skin exam: Present: dry, intact, warm. Absent: rash Internal Medicine: Result - Labs CBC & Chem 7: 05/05/18 01:39 05/05/18 01:39 Labs: Short CBC 05/04/18 05/05/18 Range/Units 22:05 01:39 WBC 10.5 (4.3-11.1) K/mcL Hgb 7.8 L 7.7 L (11.5-15.4) g/dL Hct 23.9 L 23.2 L (35.3-44.9) % Plt Count 108 L (140-400) K/mcL Neutrophils # 6.6 (1.6-8.9) K/mcL BMP 05/05/18 01:39 Sodium 134 L Potassium 4.3 Chloride 105 Carbon Dioxide 24 BUN 35 H Creatinine 1.02 Glucose 225 H Calcium 8.6 - ABG Interpretation ABG results: PT/INR, D-dimer PT 13.2 Seconds (9.4-12.1) H 05/03/18 06:28 - VTE Documentation of Mechanical Device: Intermittent pneumatic compression device Consult Discharge Plan - Plan Referrals: Sapna Ruiz MD [Primary Care Provider] -
[2018-05-05 19:09] LABS: Hematocrit 26.5 % (35.3-44.9); Hemoglobin 8.5 g/dL (11.5-15.4)
[2018-05-06 02:37] LABS: Basophils % 0.3 %; Eosinophils # 0.3 K/mcL (0.0-0.6); Eosinophils % 3.3 %; Hematocrit 31.4 % (35.3-44.9); Immature Granulocytes % 0.8 % (0-4); Lymphocytes # 1.8 K/mcL (0.6-4.6); Lymphocytes % 21.1 %; Mean Corpuscular HGB Conc 32.5 g/dL (31.6-35.5); Mean Corpuscular Hemoglobin 30.5 pg (28.0-33.3); Mean Platelet Volume 9.6 fL (9.4-12.4); Monocytes # 0.9 K/mcL (0.0-1.3); Monocytes % 9.9 %; Neutrophils # 5.6 K/mcL (1.6-8.9); Platelet Count 109 K/mcL (140-400); Red Blood Count 3.34 M/mcL (3.82-4.97); Red Cell Distribution Width 14.5 % (11.5-14.5); Segmented Neutrophils % 64.6 %
[2018-05-06 02:38] LABS: Hemoglobin 10.2 g/dL (11.5-15.4)
[2018-05-06 03:00] LABS: BUN/Creatinine Ratio 35 (6-26); Blood Urea Nitrogen 29 mg/dL (8-23); Calcium 8.8 mg/dL (8.6-10.3); Carbon Dioxide 24 mEq/L (23-29); Chloride 104 mEq/L (98-107); Glucose 188 mg/dL (70-105); Osmolality,Calculated 291 (280-300); Potassium 4.1 mEq/L (3.5-5.1); Sodium 135 mEq/L (136-145); eGFR For African Americans > 60 (> 60); eGFR For Non-African Americans > 60 (> 60)
[2018-05-06] MEDS: *HR* OxyCODONE/APAP 10/325 TABLET PO PRN ×2 (04:08→14:21)
[2018-05-06] MEDS ORDERED: amLODIPine 5 MG TABLET PO SCH (09:00)
[2018-05-06 09:12] LABS: Hematocrit 32.8 % (35.3-44.9); Hemoglobin 10.8 g/dL (11.5-15.4)
--- NOTE | 2018-05-06 09:30 | Discharge Summary ---
Date of Encounter: 05/07/18 Time of Encounter: 09:30 - Discharge Diagnosis (1) History of gout Priority: Secondary Status: Chronic Assessment and Plan: Chronic. Continue Allopurinol (2) Diabetes Priority: Secondary Status: Chronic Assessment and Plan: Type II. Continue home medications, SSI prn, diabetic diet. Qualifiers: Diabetes mellitus type: type 2 Diabetes mellitus prison insulin use: without intermediate project manager use Diabetes mellitus complication status: without complication Qualified Code(s): E11.9 - Type 2 diabetes mellitus without complications (3) COPD (chronic obstructive pulmonary disease) Priority: Secondary Status: Chronic Assessment and Plan: No acute exacerbation. Stable. Continue medications after discharge. Qualifiers: COPD type: chronic bronchitis Chronic bronchitis type: unspecified Qualified Code(s): J42 - Unspecified chronic bronchitis (4) DVT prophylaxis Priority: Secondary Status: Acute Assessment and Plan: Heparin. Pt to be discharged to ECF for therapy tomorrow. (5) Essential hypertension Priority: Secondary Status: Chronic Assessment and Plan: Stable. Continue current medications. (6) CAD (coronary artery disease) Priority: Secondary Status: Acute Assessment and Plan: Denies chest pain. Per ortho: DVT prophylaxis- Lovenox x 2 weeks then transition to aspirin x 4 weeks. Qualifiers: Coronary Disease-Associated Artery/Lesion type: [place] artery [place] vs. transplanted heart: [place] heart Associated angina: without angina Qualified Code(s): I25.10 - Atherosclerotic heart disease of [place] coronary artery without angina pectoris (7) Hip fracture Priority: Primary Status: Acute Assessment and Plan: Postop day 3, ORIF right hip. Patient to SNF for rehab after discharge DVT prophylaxis as above. Continue current pain control Incision covered, minimal blood to dressing, dry and intact. Femur X-Ray 05/03/18 03:38 IMPRESSION: 1. Traumatic comminuted right intertrochanteric femoral neck fracture with 1.9 cm of anterior displacement. No evidence of hip dislocation. 2. Subacute nondisplaced left superior and inferior pubic rami fractures. 3. Status post ORIF of left femoral neck fracture. Alignment is anatomic. No superimposed acute osseous finding. D/ / 05/03/2018 07:51:00 Clement Jimenez MD / klaudia Interpreting Provider: Clement Jimenez MD Hip/Pelvis X-Ray 05/03/18 03:38 IMPRESSION: 1. Traumatic comminuted right intertrochanteric femoral neck fracture with 1.9 cm of anterior displacement. No evidence of hip dislocation. 2. Subacute nondisplaced left superior and inferior pubic rami fractures. 3. Status post ORIF of left femoral neck fracture. Alignment is anatomic. No superimposed acute osseous finding. D/ / 05/03/2018 07:51:00 Clement Jimenez MD / klaudia Interpreting Provider: Clement Jimenez MD Qualifiers: Encounter type: initial encounter Fracture type: closed Laterality: left Qualified Code(s): S72.002A - Fracture of unspecified part of neck of left femur, initial encounter for closed fracture (8) Leukocytosis Priority: Secondary Status: Resolved Assessment and Plan: Resolved. Qualifiers: Leukocytosis type: unspecified Qualified Code(s): D72.829 - Elevated white blood cell count, unspecified (9) Anemia Priority: Secondary Status: Chronic Assessment and Plan: Improving. 10.8 today. Continue to trend after discharge and watch for signs of bleeding. Qualifiers: Anemia type: iron deficiency Iron deficiency anemia type: inadequate dietary iron intake Qualified Code(s): D50.8 - Other iron deficiency anemias Hospital course: Ms. Burch is a 87 year old female - Time Spent with Patient Total time spent providing and/or coordinating discharge services: - Discharge Medications Prescriptions: Cyclobenzaprine [Flexeril] 5 mg PO BID PRN #6 tablet PRN Reason: Spasms Enoxaparin [Lovenox] 30 mg SQ DAILY #14 syr Home Medications: Atorvastatin Calcium [Lipitor] 20 mg PO HS 04/28/16 [History] Cholecalciferol (Vitamin D3) [Vitamin D3] 1,000 unit PO DAILY 04/28/16 [History] FLUoxetine HCl [Prozac] 20 mg PO DAILY 04/28/16 [History] Nitroglycerin [Nitrostat] 0.4 mg SL AD PRN 06/15/16 [History] Ferrous Sulfate 325 mg PO TIDWM #90 tablet 06/17/16 [Rx] Folic Acid 5 mg PO DAILY #30 tablet 06/17/16 [Rx] Magnesium Oxide [Mag-Ox] 400 mg PO DAILY #14 tablet 06/17/16 [Rx] Allopurinol [Zyloprim] 300 mg PO DAILY 11/23/17 [History] Furosemide [Lasix] 20 mg PO DAILY 11/23/17 [History] Omeprazole [PriLOSEC] 20 mg PO DAILY 11/23/17 [History] Albuterol Neb [Proventil Neb] 2.5 mg IH QID PRN 01/18/18 [History] Albuterol Sulfate [Ventolin Hfa] 2 puff IH Q4H 01/18/18 [History] Ipratropium/Albuterol Neb [Duoneb] 3 ml IH Q6H PRN 30 Days inhsol 01/21/18 [Rx] Amitriptyline [Elavil] 10 mg PO HS 05/03/18 [History] Amlodipine Besylate 10 mg PO DAILY 05/03/18 [History] Metformin HCl [Glucophage] 1,000 mg PO BID 05/03/18 [History] Oxybutynin Chloride [Ditropan Xl] 10 mg PO DAILY 05/03/18 [History] Cyclobenzaprine [Flexeril] 5 mg PO BID PRN #6 tablet 05/06/18 [Rx] Enoxaparin [Lovenox] 30 mg SQ DAILY #14 syr 05/06/18 [Rx] Oxycodone HCl/Acetaminophen [Percocet 5-325 mg Tablet] 1 tab PO Q6H PRN 3 Days # 12 05/06/18 [Rx] Allergies/Adverse Reactions: 3 Allergy/AdvReac Type Severity Reaction Status Date / Time No Known Allergies Allergy Verified 01/03/17 07:17 Date of admission: 05/03/18 03:16 Primary care physician: Sapna Ruiz, Consults: 05/03/18 03:18 Consult to Orthopedic Surgery [CONS] Routine Consulting Provider: [facility] Reason for Consult: hip fracture/femur fracture Call Completed: No 05/03/18 22:52 Consult to Occupational Therapy [CONS] Routine Comment: Evaluate, develop and implement POC Reason for Consult: post hip surgery IM Nailing Does patient have active BEDREST order?: No Is patient medically & hemodynamically stable?: Yes Patient assessed for mobility or mobilized this visit?: No Consult to Orthopedic Navigator [CONS] [CONS] Routine Consult to Physical Therapy [CONS] Routine Comment: Evaluate, develop and implement POC Reason for Consult: post hip surgery Does patient have active BEDREST order?: No Is patient medically & hemodynamically stable?: Yes Patient assessed for mobility or mobilized this visit?: No Consult to Extrusion Former [CONS] Routine Reason for SW Consult: post -op hip fracture RT Post Op Consult [CONS] Routine Discharging clinician: Deonna Velez Anticipated date of discharge: 05/06/18 - Constitutional Vitals: Temp Pulse Resp BP Pulse Ox 97.9 F 91 15 131/66 92 05/06/18 06:36 05/06/18 06:36 05/06/18 06:36 05/06/18 06:36 05/06/18 06:36 General appearance: Present: cooperative, A&O X 3, pleasant, no acute distress, severe distress, answers questions appropriately - Patient Status Disposition: Transfer SNF Condition: Good Functional capacity at discharge: uses cane/walker Overall status at discharge: patient is progressing back to baseline - Discharge Instructions Follow Up With: Almas Moore MD [Partnered Physician] - Sapna Ruiz MD [Primary Care Provider] - Additional Instructions: Pt will need to transition from Lovenox SQ x 14 to aspirin for 4 weeks. Pt has a history of CAD and was on Plavix and ASA preoperatively. Recommend recheck H & H in 3-4 days, pt anemic requiring blood transfusion x 2 while admitted. - Diet and Activity Activity: as per physical therapy Diet: advance to your usual diet - VTE Documentation of Mechanical Device: Intermittent pneumatic compression device
[2018-05-06] MEDS: *HR* FentaNYL (PF) 100 MCG/2 ML VIAL IVP PRN (09:36)
[2018-05-06] MEDS: Magnesium Oxide 400 MG TABLET PO SCH (09:50)
[2018-05-06] MEDS: Furosemide 20 MG TABLET PO SCH (09:51)
[2018-05-06] MEDS: Cholecalciferol (D-3) 1,000 UNIT TABLET PO SCH (09:51)
[2018-05-06] MEDS: Folic Acid 1 MG TABLET PO SCH (09:51)
[2018-05-06] MEDS: FLUoxetine 20 MG CAPSULE PO SCH (09:51)
[2018-05-06] MEDS: Insulin LISPRO 300 UNITS/3 ML VIAL SQ SCH ×2 (09:54→13:06)
[2018-05-06 10:32] VITALS: BP 156/66
--- NOTE | 2018-05-06 12:33 | Physician Discharge Referral ---
ExtendedCare Referral Info Transfer To: [facility] Provider in Charge after Transfer: PCP Institutional Level of Care: Skilled - Diagnosis (1) History of gout Priority: Secondary Status: Chronic (2) Diabetes Priority: Secondary Status: Chronic (3) COPD (chronic obstructive pulmonary disease) Priority: Secondary Status: Chronic (4) DVT prophylaxis Priority: Secondary Status: Acute (5) Essential hypertension Priority: Secondary Status: Chronic (6) CAD (coronary artery disease) Priority: Secondary Status: Acute (7) Hip fracture Priority: Primary Status: Acute (8) Leukocytosis Priority: Secondary Status: Resolved (9) Anemia Priority: Secondary Status: Chronic Prognosis: Good Aware of Diagnosis: Patient, Family Aware of Prognosis: Patient, Family - Transfer Medications Prescriptions: Cyclobenzaprine [Flexeril] 5 mg PO BID PRN #6 tablet PRN Reason: Spasms Enoxaparin [Lovenox] 30 mg SQ DAILY #14 syr Home Medications: Atorvastatin Calcium [Lipitor] 20 mg PO HS 04/28/16 [History] Cholecalciferol (Vitamin D3) [Vitamin D3] 1,000 unit PO DAILY 04/28/16 [History] FLUoxetine HCl [Prozac] 20 mg PO DAILY 04/28/16 [History] Nitroglycerin [Nitrostat] 0.4 mg SL AD PRN 06/15/16 [History] Ferrous Sulfate 325 mg PO TIDWM #90 tablet 06/17/16 [Rx] Folic Acid 5 mg PO DAILY #30 tablet 06/17/16 [Rx] Magnesium Oxide [Mag-Ox] 400 mg PO DAILY #14 tablet 06/17/16 [Rx] Allopurinol [Zyloprim] 300 mg PO DAILY 11/23/17 [History] Furosemide [Lasix] 20 mg PO DAILY 11/23/17 [History] Omeprazole [PriLOSEC] 20 mg PO DAILY 11/23/17 [History] Albuterol Neb [Proventil Neb] 2.5 mg IH QID PRN 01/18/18 [History] Albuterol Sulfate [Ventolin Hfa] 2 puff IH Q4H 01/18/18 [History] Ipratropium/Albuterol Neb [Duoneb] 3 ml IH Q6H PRN 30 Days inhsol 01/21/18 [Rx] Amitriptyline [Elavil] 10 mg PO HS 05/03/18 [History] Amlodipine Besylate 10 mg PO DAILY 05/03/18 [History] Metformin HCl [Glucophage] 1,000 mg PO BID 05/03/18 [History] Oxybutynin Chloride [Ditropan Xl] 10 mg PO DAILY 05/03/18 [History] Cyclobenzaprine [Flexeril] 5 mg PO BID PRN #6 tablet 05/06/18 [Rx] Enoxaparin [Lovenox] 30 mg SQ DAILY #14 syr 05/06/18 [Rx] Oxycodone HCl/Acetaminophen [Percocet 5-325 mg Tablet] 1 tab PO Q6H PRN 3 Days # 12 05/06/18 [Rx] Allergies/Adverse Reactions: 3 Allergy/AdvReac Type Severity Reaction Status Date / Time No Known Allergies Allergy Verified 01/03/17 07:17 - Respiratory Orders Smoking Cessation: Smoking cessation has been advised. For more information, call the [place] Quit Line at [phone]. - Lab Orders Lab Orders: CBC, U/A, Manpreet 17 - Ancillary Orders May use pressure relief devices daily prn, May go on NORA w/family/respon democrat w /meds at nurse discretion PRN, May consult with Dentist, Cd Reactor Operator, Hoop Punch And Coiler Operator Helper PRN - Advance Directives Code Status: Full Code - Rehabiliation Orders Rehab Potential: Good Rehab Orders: ROM Exercises, Evaluation for Physical Therapy, Evaluation for Occupational Therapy - Treatments Skin tear care topically daily PRN per policy, May check for fecal impaction rectally daily PRN, Fleet enema rectally every other day PRN cleansing purposes - Diet Orders Regular CERTIFICATION: I certify that the transfer of the above named patient to an Extended Care Facility is necessary for the continuing treatment of the diagnosis listed. The above information is true and accurate reflection of patient's current condition. Confidential - Redisclosure prohibited without a patient's written consent.
[2018-05-06 14:30] LABS: Hematocrit 32.6 % (35.3-44.9); Hemoglobin 10.5 g/dL (11.5-15.4)
== END 2018-05-06 17:30 | DRG 956 ==
LOC: 2SOUTHHOLD → SUATTDRO 05-03 03:16 → 3BNU 05-03 04:26 → 3NENU 05-03 19:11
PROVIDERS: ADMIT Internal Medicine; ATTEND Registered Nurse

== ENCOUNTER 2020-05-24 12:18 | Observation (INO) ==
[2020-05-24] MEDS ORDERED: Naloxone 0.4 MG/ML INJ IVP PRN (14:38)
[2020-05-24] MEDS ORDERED: Acetaminophen 325 MG TABLET PO PRN (14:50)
[2020-05-24] MEDS ORDERED: *HR* Dextrose 50 % in Water (Vial) 50 ML VIAL IVP PRN (15:43)
[2020-05-24] MEDS ORDERED: Dextrose Gel 15 GM/37.5 ML TUBE PO PRN ×2 (15:43)
[2020-05-24] MEDS ORDERED: D5% in Water 1,000 ML IVC PRN (15:43)
[2020-05-24 16:04] LABS: Basophils % 0.3 %; Eosinophils # 0.1 K/mcL (0.0-0.6); Eosinophils % 1.1 %; Hematocrit 33.1 % (35.3-44.9); Hemoglobin 10.7 g/dL (11.5-15.4); Immature Granulocytes % 0.6 % (0-4); Lymphocytes # 1.2 K/mcL (0.6-4.6); Lymphocytes % 11.9 %; Mean Corpuscular HGB Conc 32.3 g/dL (31.6-35.5); Mean Corpuscular Hemoglobin 33.6 pg (28.0-33.3); Mean Corpuscular Volume 104.1 fL (83.0-100.0); Mean Platelet Volume 10.1 fL (9.4-12.4); Monocytes # 0.5 K/mcL (0.0-1.3); Monocytes % 4.6 %; Neutrophils # 8.2 K/mcL (1.6-8.9); Platelet Count 233 K/mcL (140-400); Red Blood Count 3.18 M/mcL (3.82-4.97); Red Cell Distribution Width 13.8 % (11.5-14.5); Segmented Neutrophils % 81.5 %; White Blood Count 10.1 K/mcL (4.3-11.1)
[2020-05-24 16:09] LABS: Prothrombin Time 11.4 Seconds (9.4-12.1)
[2020-05-24] MEDS: *HR* HYDROcodone/Acet 5/325 mg TABLET PO PRN ×2 (16:18→22:25)
[2020-05-24 16:23] LABS: Calcium 10.3 mg/dL (8.6-10.3); Potassium 4.4 mEq/L (3.5-5.1)
[2020-05-24] MEDS: Insulin LISPRO 300 UNITS/3 ML VIAL SQ SCH (17:08)
[2020-05-24] MEDS: *HR* OxyCODONE ER (12 HR) 10 MG TABLET PO PRN (20:21)
[2020-05-24] MEDS ORDERED: Insulin LISPRO 300 UNITS/3 ML VIAL SQ SCH (21:00)
[2020-05-25] MEDS: *HR* OxyCODONE ER (12 HR) 10 MG TABLET PO PRN (05:09)
[2020-05-25 05:24] LABS: Basophils % 0.2 %; Eosinophils # 0.6 K/mcL (0.0-0.6); Eosinophils % 6.4 %; Hematocrit 31.4 % (35.3-44.9); Hemoglobin 9.9 g/dL (11.5-15.4); Immature Granulocytes % 0.3 % (0-4); Lymphocytes # 2.1 K/mcL (0.6-4.6); Mean Corpuscular HGB Conc 31.5 g/dL (31.6-35.5); Mean Corpuscular Hemoglobin 33.1 pg (28.0-33.3); Mean Platelet Volume 10.4 fL (9.4-12.4); Monocytes # 0.6 K/mcL (0.0-1.3); Monocytes % 6.5 %; Neutrophils # 6.5 K/mcL (1.6-8.9); Platelet Count 218 K/mcL (140-400); Red Blood Count 2.99 M/mcL (3.82-4.97); Red Cell Distribution Width 13.8 % (11.5-14.5); Segmented Neutrophils % 65.6 %; White Blood Count 9.8 K/mcL (4.3-11.1)
[2020-05-25 05:45] LABS: Calcium 9.8 mg/dL (8.6-10.3); Potassium 4.4 mEq/L (3.5-5.1)
[2020-05-25] MEDS: Insulin LISPRO 300 UNITS/3 ML VIAL SQ SCH ×2 (07:34→13:27)
[2020-05-25] MEDS ORDERED: Nitroglycerin 0.4 MG TAB.SUBL SL PRN (09:33)
[2020-05-25] MEDS ORDERED: Melatonin 3 MG TABLET PO PRN (09:33)
[2020-05-25 12:01] VITALS: BP 142/78
[2020-05-25] MEDS ORDERED: allopurinoL 300 MG TABLET PO SCH (21:00)
[2020-05-26] MEDS ORDERED: amLODIPine 5 MG TABLET PO SCH (09:00)
[2020-05-26] MEDS ORDERED: lisinopriL 20 MG TABLET PO SCH (09:00)
[2020-05-26] MEDS ORDERED: FLUoxetine 20 MG CAPSULE PO SCH (09:00)
[2020-05-26] MEDS ORDERED: Magnesium Oxide 400 MG TABLET PO SCH (09:00)
[2020-05-26] MEDS ORDERED: Aspirin Enteric Coated 81 MG Tablet PO SCH (09:00)
== END 2020-05-25 14:50 | disposition home health service (06) ==
LOC: 3BNU → SUATTDRO 13:47
PROVIDERS: ADMIT Internal Medicine; ATTEND Student in an Organized Health Care Education/Training Program

== ENCOUNTER 2020-10-29 10:54 | Inpatient (IN) ==
[2020-10-29] MEDS ORDERED: Ringers Solution, Lactated 1,000 ML IVC SCH (14:30)
[2020-10-29] MEDS ORDERED: Ondansetron 4 MG/2 ML VIAL IVP PRN (14:30)
[2020-10-29] MEDS ORDERED: Naloxone 0.4 MG/ML INJ IVP PRN (14:30)
[2020-10-29] MEDS ORDERED: D5% in Water 1,000 ML IVC PRN (14:38)
[2020-10-29] MEDS ORDERED: *HR* Dextrose 50 % in Water (Vial) 50 ML VIAL IVP PRN (14:38)
[2020-10-29] MEDS ORDERED: Dextrose Gel 15 GM/37.5 ML TUBE PO PRN ×2 (14:38)
[2020-10-29] MEDS: Piperacillin/Tazobactam 3.375 GM in 0.9 % Sodium Chloride Mini Bag 100 ML IVPB SCH (17:21)
[2020-10-29] MEDS: Insulin LISPRO 300 UNITS/3 ML VIAL SQ SCH (17:35)
[2020-10-29] MEDS ORDERED: *HR* OxyCODONE/APAP 5/325 TABLET PO PRN (19:06)
[2020-10-29] MEDS ORDERED: Nitroglycerin 0.4 MG TAB.SUBL SL PRN (19:06)
[2020-10-29] MEDS: amLODIPine 5 MG TABLET PO SCH (22:58)
[2020-10-30] MEDS: Piperacillin/Tazobactam 3.375 GM in 0.9 % Sodium Chloride Mini Bag 100 ML IVPB SCH ×4 (00:21→23:34)
[2020-10-30] MEDS: Insulin LISPRO 300 UNITS/3 ML VIAL SQ SCH ×4 (03:40→17:37)
[2020-10-30 05:06] LABS: Basophils % 0.1 %; Eosinophils # 0.2 K/mcL (0.0-0.6); Eosinophils % 1.2 %; Hematocrit 32.1 % (35.3-44.9); Hemoglobin 10.5 g/dL (11.5-15.4); Immature Granulocytes % 0.7 % (0-4); Lymphocytes # 1.3 K/mcL (0.6-4.6); Lymphocytes % 9.5 %; Mean Corpuscular HGB Conc 32.7 g/dL (31.6-35.5); Mean Corpuscular Hemoglobin 31.7 pg (28.0-33.3); Mean Platelet Volume 10.2 fL (9.4-12.4); Monocytes # 0.7 K/mcL (0.0-1.3); Monocytes % 5.2 %; Neutrophils # 11.4 K/mcL (1.6-8.9); Platelet Count 310 K/mcL (140-400); Red Blood Count 3.31 M/mcL (3.82-4.97); Red Cell Distribution Width 13.1 % (11.5-14.5); Segmented Neutrophils % 83.3 %; White Blood Count 13.7 K/mcL (4.3-11.1)
[2020-10-30 05:12] LABS: Albumin 3.9 g/dL (3.5-5.7); Albumin/Globulin Ratio 1.1 (1.1-2.2); Bilirubin,Total 4.5 mg/dL (0.3-1.0); Calcium 9.5 mg/dL (8.6-10.3); Globulin 3.4 g/dL (2.4-3.5); Magnesium 1.4 mg/dL (1.6-2.6); Phosphorous 3.3 mg/dL (2.7-4.5); Potassium 3.5 mEq/L (3.5-5.1); Total Protein 7.3 g/dL (6.4-8.9)
[2020-10-30 05:14] LABS: INR 1.4; Prothrombin Time 15.6 Seconds (9.4-12.1)
[2020-10-30] MEDS ORDERED: *HR* Metoprolol 5 MG/5 ML VIAL IVP ONE (06:26)
[2020-10-30] MEDS: amLODIPine 5 MG TABLET PO SCH (08:08)
[2020-10-30] MEDS ORDERED: FLUoxetine 20 MG CAPSULE PO SCH (09:00)
[2020-10-30] MEDS ORDERED: Potassium Chloride 40 MEQ, Lidocaine 1% 2 ML in D5% in Water 500 ML IVPB ONE (09:07)
[2020-10-30 09:19] LABS: Adenovirus Not Detected (Not Detect); Bordetella Pertussis Not Detected (Not Detect); Chlamydophila pneumoniae Not Detected (Not Detect); Coronavirus 229E Not Detected (Not Detect); Coronavirus HKU1 Not Detected (Not Detect); Coronavirus NL63 Not Detected (Not Detect); Coronavirus OC43 Not Detected (Not Detect); Human Metapneumovirus Not Detected (Not Detect); Human Rhinovirus/Enterovirus Not Detected (Not Detect); Influenza A Subtype 2009 H1 Not Detected (Not Detect); Influenza B Not Detected (Not Detect); Mycoplasma pneumoniae Not Detected (Not Detect); Parainfluenza Virus 1 Not Detected (Not Detect); Parainfluenza Virus 2 Not Detected (Not Detect); Parainfluenza Virus 3 Not Detected (Not Detect); Parainfluenza Virus 4 Not Detected (Not Detect); Respiratory Syncytial Virus Not Detected (Not Detect); SARS-CoV-2 Not Detected (Not Detect)
[2020-10-30] MEDS ORDERED: Perflutren Lipid Microsphere 1.3 ML in 0.9 % Sodium Chloride 8.7 ML IVP PRN (12:00)
[2020-10-30] MEDS ORDERED: Heparin 1,000 UNITS/500 mL 500 ML ONE (14:32)
[2020-10-30] MEDS ORDERED: *HR* Propofol 200 MG/20 ML VIAL IVP ONE (14:43)
[2020-10-30] MEDS ORDERED: Lidocaine -MPF 2% 2 ML VIAL ONE (14:49)
[2020-10-30] MEDS ORDERED: Ondansetron 4 MG/2 ML VIAL ONE (14:49)
[2020-10-30] MEDS ORDERED: *HR* FentaNYL (PF) 100 MCG/2 ML VIAL ONE (14:59)
[2020-10-30] MEDS ORDERED: Indomethacin 50 MG SUPP.RECT RC ONE (15:49)
[2020-10-30] MEDS ORDERED: Albuterol 2.5 MG/3 ML NEBULIZER IH PRN (18:49)
[2020-10-30] MEDS ORDERED: Mirtazapine 15 MG TABLET PO SCH (21:00)
[2020-10-31] MEDS: Insulin LISPRO 300 UNITS/3 ML VIAL SQ SCH ×5 (00:59→20:27)
[2020-10-31 01:53] LABS: Hematocrit 29.8 % (35.3-44.9); Hemoglobin 9.4 g/dL (11.5-15.4); Mean Corpuscular HGB Conc 31.5 g/dL (31.6-35.5); Mean Corpuscular Hemoglobin 32.1 pg (28.0-33.3); Mean Corpuscular Volume 101.7 fL (83.0-100.0); Mean Platelet Volume 10.2 fL (9.4-12.4); Platelet Count 289 K/mcL (140-400); Red Blood Count 2.93 M/mcL (3.82-4.97); Red Cell Distribution Width 13.2 % (11.5-14.5); White Blood Count 11.4 K/mcL (4.3-11.1)
[2020-10-31 02:08] LABS: Albumin 3.4 g/dL (3.5-5.7); Albumin/Globulin Ratio 1.1 (1.1-2.2); Bilirubin,Total 1.4 mg/dL (0.3-1.0); Calcium 8.7 mg/dL (8.6-10.3); Globulin 3.1 g/dL (2.4-3.5); Potassium 4.2 mEq/L (3.5-5.1); Total Protein 6.5 g/dL (6.4-8.9)
[2020-10-31] MEDS: amLODIPine 5 MG TABLET PO SCH (08:48)
[2020-10-31] MEDS: Piperacillin/Tazobactam 3.375 GM in 0.9 % Sodium Chloride Mini Bag 100 ML IVPB SCH ×3 (08:48→23:41)
[2020-10-31] MEDS ORDERED: FLUoxetine HCl 10 MG CAPSULE PO SCH (09:00)
[2020-10-31] MEDS ORDERED: cefOXitin 1,000 MG, 0.9 % Sodium Chloride 1,000 ML IR ONE ×2 (10:00→14:34)
[2020-10-31] MEDS ORDERED: Dexamethasone 4 MG/ML VIAL ONE (10:52)
[2020-10-31] MEDS ORDERED: *HR* Rocuronium Bromide 50 MG/5 ML VIAL ONE (10:52)
[2020-10-31] MEDS ORDERED: *HR* Succinylcholine 200 MG/10 ML VIAL IVP ONE (10:52)
[2020-10-31] MEDS ORDERED: Ondansetron 4 MG/2 ML VIAL ONE (10:52)
[2020-10-31] MEDS ORDERED: *HR* FentaNYL (PF) 100 MCG/2 ML VIAL ONE ×2 (10:52→12:51)
[2020-10-31] MEDS ORDERED: Lidocaine -MPF 4% 5 ML AMPUL ONE (10:52)
[2020-10-31] MEDS ORDERED: Lidocaine -MPF 2% 2 ML VIAL ONE (10:52)
[2020-10-31] MEDS ORDERED: Isovue-300 50ML VIAL ONE (11:04)
[2020-10-31] MEDS ORDERED: *HR* FentaNYL (PF) 100 MCG/2 ML VIAL IVP PRN ×2 (11:28→14:34)
[2020-10-31] MEDS ORDERED: *HR* PHENYLEPHRINE 1,000 MCG/10 ML SYRINGE IVP ONE (11:59)
[2020-10-31] MEDS ORDERED: EPHEDrine 50 MG/ML VIAL ONE (12:09)
[2020-10-31] MEDS ORDERED: *HR* Propofol 200 MG/20 ML VIAL IVP ONE (13:35)
[2020-10-31] MEDS ORDERED: Naloxone 0.4 MG/ML INJ IVP PRN (14:34)
[2020-10-31] MEDS ORDERED: *HR* Dextrose 50 % in Water (Vial) 50 ML VIAL IVP PRN (14:34)
[2020-10-31] MEDS ORDERED: D5% in Water 1,000 ML IVC PRN (14:34)
[2020-10-31] MEDS ORDERED: Nitroglycerin 0.4 MG TAB.SUBL SL PRN (14:34)
[2020-10-31] MEDS ORDERED: Dextrose Gel 15 GM/37.5 ML TUBE PO PRN ×2 (14:34)
[2020-10-31] MEDS ORDERED: Perflutren Lipid Microsphere 1.3 ML in 0.9 % Sodium Chloride 8.7 ML IVP PRN (14:34)
[2020-10-31] MEDS ORDERED: Ondansetron 4 MG/2 ML VIAL IVP PRN (14:34)
[2020-10-31] MEDS ORDERED: Ketorolac 15 MG/ML VIAL IVP ONE (15:38)
[2020-10-31] MEDS ORDERED: Insulin LISPRO 300 UNITS/3 ML VIAL SQ SCH ×2 (16:30→18:00)
[2020-10-31] MEDS: Mirtazapine 15 MG TABLET PO SCH (20:27)
[2020-10-31] MEDS: *HR* OxyCODONE/APAP 5/325 TABLET PO PRN (23:58)
[2020-11-01] MEDS: *HR* OxyCODONE/APAP 5/325 TABLET PO PRN ×2 (07:59→18:15)
[2020-11-01] MEDS: amLODIPine 5 MG TABLET PO SCH (08:01)
[2020-11-01] MEDS: Piperacillin/Tazobactam 3.375 GM in 0.9 % Sodium Chloride Mini Bag 100 ML IVPB SCH ×2 (08:01→16:33)
[2020-11-01] MEDS: FLUoxetine HCl 10 MG CAPSULE PO SCH (08:01)
[2020-11-01] MEDS: Insulin LISPRO 300 UNITS/3 ML VIAL SQ SCH ×3 (08:13→16:34)
[2020-11-01 08:54] LABS: Hematocrit 25.9 % (35.3-44.9); Hemoglobin 8.2 g/dL (11.5-15.4); Mean Corpuscular HGB Conc 31.7 g/dL (31.6-35.5); Mean Corpuscular Hemoglobin 31.7 pg (28.0-33.3); Mean Platelet Volume 10.3 fL (9.4-12.4); Platelet Count 256 K/mcL (140-400); Red Blood Count 2.59 M/mcL (3.82-4.97); White Blood Count 12.5 K/mcL (4.3-11.1)
[2020-11-01 09:09] LABS: Calcium 8.6 mg/dL (8.6-10.3); Potassium 4.2 mEq/L (3.5-5.1)
[2020-11-01] MEDS ORDERED: Ketorolac 15 MG/ML VIAL IVP ONE (10:48)
[2020-11-01] MEDS: 0.9 % Sodium Chloride 1,000 ML IVC SCH (11:59)
[2020-11-02] MEDS: Mirtazapine 15 MG TABLET PO SCH ×2 (00:07→23:44)
[2020-11-02] MEDS: Piperacillin/Tazobactam 3.375 GM in 0.9 % Sodium Chloride Mini Bag 100 ML IVPB SCH ×4 (00:07→23:45)
[2020-11-02] MEDS: Insulin LISPRO 300 UNITS/3 ML VIAL SQ SCH ×5 (00:14→23:44)
[2020-11-02] MEDS: *HR* OxyCODONE/APAP 5/325 TABLET PO PRN ×3 (02:24→13:56)
[2020-11-02] MEDS: 0.9 % Sodium Chloride 1,000 ML IVC SCH ×2 (02:26→08:30)
[2020-11-02] MEDS: Albuterol 2.5 MG/3 ML NEBULIZER IH PRN ×2 (05:59→13:36)
[2020-11-02] MEDS: FLUoxetine HCl 10 MG CAPSULE PO SCH (08:23)
[2020-11-02] MEDS: amLODIPine 5 MG TABLET PO SCH (08:23)
[2020-11-02 09:19] LABS: Hematocrit 27.4 % (35.3-44.9); Hemoglobin 8.7 g/dL (11.5-15.4); Mean Corpuscular HGB Conc 31.8 g/dL (31.6-35.5); Mean Corpuscular Volume 100.7 fL (83.0-100.0); Mean Platelet Volume 10.3 fL (9.4-12.4); Platelet Count 291 K/mcL (140-400); Red Blood Count 2.72 M/mcL (3.82-4.97); Red Cell Distribution Width 13.3 % (11.5-14.5)
[2020-11-02 09:32] LABS: BUN/Creatinine Ratio 24 (6-26); Blood Urea Nitrogen 25 mg/dL (8-23); Calcium 8.8 mg/dL (8.6-10.3); Carbon Dioxide 24 mEq/L (23-29); Chloride 108 mEq/L (98-107); Glucose 264 mg/dL (70-105); Osmolality,Calculated 302 (280-300); Potassium 4.2 mEq/L (3.5-5.1); Sodium 139 mEq/L (136-145); eGFR For African Americans > 60 (> 60); eGFR For Non-African Americans 50 (> 60)
[2020-11-02] MEDS ORDERED: Furosemide 20 MG/2 ML VIAL IVP ONE (10:26)
[2020-11-02] MEDS ORDERED: MethylPREDNISolone 40 MG/ML VIAL IVP ONE (17:29)
[2020-11-02] MEDS: Ipratropium/Albuterol Neb 3 ML IH SCH ×3 (20:08→23:28)
[2020-11-03 01:10] LABS: Hematocrit 27.5 % (35.3-44.9); Hemoglobin 8.5 g/dL (11.5-15.4); Mean Corpuscular HGB Conc 30.9 g/dL (31.6-35.5); Mean Corpuscular Hemoglobin 31.5 pg (28.0-33.3); Mean Corpuscular Volume 101.9 fL (83.0-100.0); Mean Platelet Volume 10.2 fL (9.4-12.4); Platelet Count 304 K/mcL (140-400); Red Cell Distribution Width 13.4 % (11.5-14.5); White Blood Count 10.8 K/mcL (4.3-11.1)
[2020-11-03 01:22] LABS: BUN/Creatinine Ratio 26 (6-26); Blood Urea Nitrogen 23 mg/dL (8-23); Calcium 9.1 mg/dL (8.6-10.3); Carbon Dioxide 22 mEq/L (23-29); Chloride 105 mEq/L (98-107); Glucose 340 mg/dL (70-105); Osmolality,Calculated 303 (280-300); Potassium 4.2 mEq/L (3.5-5.1); Sodium 138 mEq/L (136-145); eGFR For African Americans > 60 (> 60); eGFR For Non-African Americans > 60 (> 60)
[2020-11-03] MEDS: Ipratropium/Albuterol Neb 3 ML IH SCH ×5 (04:26→19:54)
[2020-11-03] MEDS: Metoprolol XL (24 HR) Succ 25 MG TAB.ER.24H PO SCH ×2 (06:30→11:51)
[2020-11-03 11:22] LABS: Troponin I 0.03 ng/mL (< 0.04)
[2020-11-03] MEDS ORDERED: Furosemide 20 MG/2 ML VIAL IVP ONE (11:22)
[2020-11-03] MEDS: FLUoxetine HCl 10 MG CAPSULE PO SCH (11:50)
[2020-11-03] MEDS: amLODIPine 5 MG TABLET PO SCH (11:51)
[2020-11-03] MEDS: Piperacillin/Tazobactam 3.375 GM in 0.9 % Sodium Chloride Mini Bag 100 ML IVPB SCH ×3 (11:51→23:36)
[2020-11-03] MEDS: Insulin LISPRO 300 UNITS/3 ML VIAL SQ SCH ×4 (11:52→21:29)
[2020-11-03 12:50] LABS: Magnesium 1.8 mg/dL (1.6-2.6)
[2020-11-03] MEDS: predniSONE 20 MG TABLET PO SCH (14:29)
[2020-11-03] MEDS: *HR* OxyCODONE/APAP 5/325 TABLET PO PRN (14:40)
[2020-11-03] MEDS: Acetaminophen 325 MG TABLET PO SCH ×2 (18:58→23:38)
[2020-11-03] MEDS: Mirtazapine 15 MG TABLET PO SCH (21:30)
[2020-11-04] MEDS: Ipratropium/Albuterol Neb 3 ML IH SCH ×5 (00:08→15:50)
[2020-11-04 04:14] LABS: Hematocrit 23.8 % (35.3-44.9); Hemoglobin 7.6 g/dL (11.5-15.4); Mean Corpuscular HGB Conc 31.9 g/dL (31.6-35.5); Mean Corpuscular Hemoglobin 32.5 pg (28.0-33.3); Mean Corpuscular Volume 101.7 fL (83.0-100.0); Mean Platelet Volume 10.2 fL (9.4-12.4); Platelet Count 323 K/mcL (140-400); Red Blood Count 2.34 M/mcL (3.82-4.97); Red Cell Distribution Width 13.5 % (11.5-14.5); White Blood Count 13.4 K/mcL (4.3-11.1)
[2020-11-04 04:32] LABS: Calcium 8.9 mg/dL (8.6-10.3); Potassium 4.3 mEq/L (3.5-5.1)
[2020-11-04] MEDS: Acetaminophen 325 MG TABLET PO SCH ×2 (08:50→12:21)
[2020-11-04] MEDS: amLODIPine 5 MG TABLET PO SCH (08:50)
[2020-11-04] MEDS: FLUoxetine HCl 10 MG CAPSULE PO SCH (08:51)
[2020-11-04] MEDS: Metoprolol XL (24 HR) Succ 25 MG TAB.ER.24H PO SCH (08:51)
[2020-11-04] MEDS: Piperacillin/Tazobactam 3.375 GM in 0.9 % Sodium Chloride Mini Bag 100 ML IVPB SCH (08:51)
[2020-11-04] MEDS: Insulin LISPRO 300 UNITS/3 ML VIAL SQ SCH ×2 (08:52→12:20)
[2020-11-04] MEDS: predniSONE 20 MG TABLET PO SCH (08:53)
[2020-11-04] MEDS ORDERED: Iron Sucrose Complex 400 MG in 0.9 % Sodium Chloride 250 ML IVPB ONE (08:58)
[2020-11-04] MEDS ORDERED: Doxycycline 100 MG CAPSULE PO SCH (10:15)
[2020-11-04 14:32] LABS: Hematocrit 27.3 % (35.3-44.9); Hemoglobin 8.5 g/dL (11.5-15.4); Mean Corpuscular HGB Conc 31.1 g/dL (31.6-35.5); Mean Corpuscular Hemoglobin 31.7 pg (28.0-33.3); Mean Corpuscular Volume 101.9 fL (83.0-100.0); Mean Platelet Volume 9.9 fL (9.4-12.4); Platelet Count 387 K/mcL (140-400); Red Blood Count 2.68 M/mcL (3.82-4.97); Red Cell Distribution Width 13.7 % (11.5-14.5); White Blood Count 12.6 K/mcL (4.3-11.1)
[2020-11-04 14:52] LABS: Calcium 9.2 mg/dL (8.6-10.3); Potassium 4.4 mEq/L (3.5-5.1)
[2020-11-04 15:30] VITALS: BP 128/66
[2020-11-04] MEDS ORDERED: Amoxicillin/Clavulanate 500 MG TABLET PO SCH (17:00)
== END 2020-11-04 16:06 | disposition home health service (06) | DRG 853 ==
LOC: 3ANU → SUATTDRO 14:30 → 3ANU 19:04
PROVIDERS: ADMIT Internal Medicine; ATTEND Internal Medicine